=== PATIENT | female | born 1955 | race Caucasian/White ===

== ENCOUNTER 2020-12-26 08:52 | Outpatient (REF) | payer OTHER, SELFPAY ==
[2020-12-26 10:13] LABS: Blood Urea Nitrogen 20 mg/dL (9-16); Estimated Glomerular Filt Rate 34
== END 2020-12-26 08:53 | disposition home or self-care (01) ==
LOC: HO.LAB 08:52
PROVIDERS: PCP Internal Medicine; Visit Provider Internal Medicine Gastroenterology
DX: I73.9 Peripheral vascular disease, unspecified (principal)
CPT/HCPCS: 36415; 82565; 84520

== ENCOUNTER 2021-06-26 06:16 | Emergency (ER) | payer OTHER, SELFPAY ==
[2021-06-26] VITALS (8 sets, daily range): BP systolic 116–156; BP diastolic 68–81; PULSE 73–84; RESP 15–18; TEMP 36.8; O2SAT 95–97; BMI 21.4
--- NOTE | ~2021-06-26 | CT_ITS ---
EXAMINATION: CT HEAD WITHOUT CONTRAST CLINICAL INFORMATION: Following: COMPARISON: 10/24/2019 TECHNIQUE: Contiguous axial imaging was performed from the skull base to vertex without intravenous administration of contrast. This CT examination was performed using dose optimization techniques as appropriate, variously including the following: *Automated exposure control *Adjustment of mA and/or kV according to patient size (this includes techniques or standardized protocols for targeted exams where dose is matched to indication/reason for exam; i.e. extremities or head) *Use of iterative reconstruction technique DLP: 620 mGy-cm FINDINGS: Previously seen acute left subdural hematoma has resolved. There is no evidence of acute intracranial hemorrhage or territorial infarction. A small focus of high density lobe and the anterior margin of the left posterior frontal gyrus in image 41/58 is felt to be artifactual on thin section images with motion and beam hardening. No abnormal mass effect or midline shift is seen. Harris to white matter differentiation is well preserved. No extra-axial fluid collections are identified. The ventricles are normal in size. There is no abnormal attenuation within the brain parenchyma. The osseous structures and soft tissues are normal. The mastoid air cells and visualized portions of the paranasal sinuses are well aerated. CT/CT head/brain wo con IMPRESSION: No acute intracranial pathology.
--- NOTE | ~2021-06-26 | CT_ITS ---
EXAMINATION: CT LEFT KNEE WITHOUT CONTRAST CLINICAL INFORMATION: Question lateral tibial plateau fracture with joint effusion. COMPARISON: None TECHNIQUE: 2 mm thin axial and reformatted 2 mm thin sagittal and coronal images of the left knee were obtained. DLP: 190 mGy-cm. FINDINGS: There is a depressed comminuted fracture lateral tibial plateau with mild separation by 4 mm of depressed fragments. The fracture line extends from the lateral tibial plateau to the lateral proximal tibial cortex. A second vertical fracture line is noted more medially. There is horizontal increased bony density, likely contusion or additional fracture line. There is mild lateral knee soft tissue contusion/edema. CT/CT knee LT wo con IMPRESSION: Comminuted depressed lateral tibial plateau fracture with mild separation of the fracture fragments measuring approximately 4 mm wide. Moderate suprapatellar joint effusion and moderate lateral knee soft tissue swelling.
--- NOTE | ~2021-06-26 | XR_ITS ---
EXAMINATION: LEFT KNEE AND LEFT ANKLE X-RAY CLINICAL INFORMATION: Pain post fall COMPARISON: None TECHNIQUE: 4 views of the left knee and 3 views of the left ankle FINDINGS: Left knee: There is cortical step off and increased sclerosis in the lateral tibial plateau questionable for a lateral tibial plateau fracture. No other fracture is seen. The bones are osteopenic. There is a joint effusion. There are surgical clips projecting over the posterior medial knee. Left ankle: The bones are osteopenic. Bone alignment is normal. No fracture or dislocation is seen. The ankle mortise is normal. Soft tissues are XR/XR ankle LT min 3V IMPRESSION: Left knee: Question lateral tibial plateau fracture. Joint effusion. Osteopenia. Left ankle: Osteopenia. No fracture or dislocation.
--- NOTE | ~2021-06-26 | XR_ITS ---
EXAMINATION: LEFT KNEE AND LEFT ANKLE X-RAY CLINICAL INFORMATION: Pain post fall COMPARISON: None TECHNIQUE: 4 views of the left knee and 3 views of the left ankle FINDINGS: Left knee: There is cortical step off and increased sclerosis in the lateral tibial plateau questionable for a lateral tibial plateau fracture. No other fracture is seen. The bones are osteopenic. There is a joint effusion. There are surgical clips projecting over the posterior medial knee. Left ankle: The bones are osteopenic. Bone alignment is normal. No fracture or dislocation is seen. The ankle mortise is normal. Soft tissues are XR/XR knee LT 4V IMPRESSION: Left knee: Question lateral tibial plateau fracture. Joint effusion. Osteopenia. Left ankle: Osteopenia. No fracture or dislocation.
--- NOTE | 2021-06-26 06:36 | ED.FALL ---
HPI - Fall General Chief Complaint: Extremity Injury, Lower Stated Complaint: L KNEE PAIN S/P FALL Time Seen by Provider: 06/26/21 06:34 Source: patient and EMS Mode of arrival: EMS Limitations: no limitations History of Present Illness MD complaint: fall Onset (ago): hour(s) (in last hour or so) Fall from: standing Fall witnessed: no Place fall occurred: home Loss of consciousness: none Prolonged down time: no Symptoms prior to fall: none Context: other (lost balance) Location of injury: head Location of injury - extremities: left: knee and ankle Severity: severe Quality: dull Associated symptoms (after fall): unable to walk Related Data Home Medications Medication Instructions Recorded Confirmed amlodipine 10 mg tablet 1 tab PO DAILY 06/26/21 06/26/21 cholecalciferol (vitamin D3) 50 50 mcg PO DAILY 06/26/21 06/26/21 mcg (2,000 unit) tablet (Vitamin D3) levothyroxine 50 mcg tablet 1 tab PO DAILY 06/26/21 06/26/21 omeprazole 20 mg capsule,delayed 1 cap PO DAILY 06/26/21 06/26/21 release tramadol 50 mg tablet 1 tab PO QAM PRN 06/26/21 06/26/21 warfarin 5 mg tablet 2.5 mg PO MOTUWETHFRSA 06/26/21 06/26/21 warfarin 5 mg tablet 5 mg PO WILSON 06/26/21 06/26/21 zolpidem 10 mg tablet 1 tab PO BEDTIME PRN 06/26/21 06/26/21 Allergies Allergy/AdvReac Type Severity Reaction Status Date / Time penicillin V Allergy Unknown Unknown Verified 06/26/21 06:44 Penicillins Allergy Unknown UNKNOWN Verified 06/26/21 06:44 lisinopril [LISINOPRIL] AdvReac Intermediate hyperkalemia Verified 06/26/21 06:44 (on multiple re-starts) see 02/09/19 admission From Thorazine Allergy Severe HIVES Uncoded 06/26/21 06:44 Review of Systems Review of Systems: Constitutional : No Fever, No Chills ENT/Mouth : No Ear Pain, No Hoarseness, No sore throat Eyes: No Eye Pain, No Swelling, No Redness, No Foreign Body Cardiovascular : No Chest Pain, No SOB Respiratory : No Cough, No Dyspnea Gastrointestinal : No Nausea, No Vomiting, No Diarrhea, No abdominal Pain Genitourinary : No Dysuria, No Hematuria Musculoskeletal : positive joint pain, No Myalgias, No Joint Swelling Skin : No Skin lacerations, No rash Neuro : No Weakness, No Numbness, No Loss of Consciousness, No Dizziness, No Headache Psych : No Anxiety/Panic, No Depression Heme/Lymph: no easy bruising, no Lymphadenopathy Endocrine : No Polyuria, No Polydipsia All other systems reviewed and are negative [facility] Past Medical History Medical History (Updated 06/26/21 @ 13:29 by Shama Green DO) Abdominal aortic aneurysm HTN (hypertension) PAD (peripheral artery disease) Surgical History (Updated 06/26/21 @ 06:41 by Shama Green DO) S/P femoral-femoral bypass surgery Social History Social History (Updated 06/26/21 @ 06:42 by Shama Green DO) Patient Tobacco Use Status: Former Tobacco user Use of substances other than those prescribed or required for medical reasons: No Advance Directives: No Advance Directives Information Provided: No Physical Exam Vital Signs: Vital Signs: Last Vital Signs Temp 98.3 F 06/26/21 07:37 Pulse 77 06/26/21 14:43 Resp 16 06/26/21 13:08 BP 151/68 H 06/26/21 14:43 Pulse Ox 95 06/26/21 14:43 Body Mass Index 21.4 Appearance: Alert. Oriented X3. No acute distress. Eyes: Pupils equal, round and reactive to light. ENT: Pharynx normal. Neck: Normal inspection. Neck supple. CVS: Normal heart rate and rhythm. Pulses normal. Respiratory: No respiratory distress. Breath sounds normal. Abdomen: Soft and nontender. Skin: Skin warm and dry. Normal skin color. Normal skin turgor. Extremities: No lower extremity edema. L knee ttp with small to moderate effusion, L ankle ttp, no hip pain - faint palpable pulses noted feet are warm to the touch Neuro: Oriented X 3. No motor deficit. No sensory deficit. Course Course Course Narrative: CT scan to evaluate tib plat fx orthopedics aware given her amount of pain though her foot has been warm to the touch sensation intact calf soft and compressible - compartment syndrome not present at this time 129pm repeat IV dilaudid for pain discussion with patient and the gentleman who helps care for her - needs STR, orthopedics recommends outpatient follow up and surgery in 1 week - Eugene MS Patient placed in physician observation at 243pm . The indication for observation is that the patient needs more time for STR placement. At this time the patient is well developed well nourished, lungs clear, CV RRR, abd nontender, neuro is intact. distal NV intact compartments are soft and compressible doubt compartment syndrome signed out pending placement Procedures Orthopedic Splinting/Casting Injury #1: Side: left Lower Extremity Injury Location: knee Lower Extremity Immobilizer: knee immobilizer MDM - Fall MDM Narrative Medical decision making narrative: 66 yo female with PAD, abdominal aortic aneurysm, HTN on coumadin here after she fell due to losing her balance, she does have a history of falls in the past she did bump her head but no LOC - will need head CT given coumadin. Her main complaint is L knee and ankle pain - she is distal NV intact. Xrays, labs, and PO morphine for pain ordered, dispo per results and findings. Lab Data Result diagrams: 06/26/21 09:19 06/26/21 07:16 Labs: Lab Results 06/26/21 06/26/21 06/26/21 Range/Units 07:15 07:16 09:10 WBC (4.8-10.8) X10*3/uL RBC (4.20-5.50) X10*6/uL Hgb (12.0-16.0) g/dl Hct (37-47) % MCV (80-98) fL MCH (27.0-33.0) pg MCHC (31.0-35.0) g/dl RDW (11.0-16.0) % Plt Count (160-400) X10*3/uL MPV (9.4-12.3) fL Immature Gran % (Auto) (0.0-0.4) % Neut % (Auto) (45-73) % Lymph % (Auto) (20-40) % [place] % (Auto) (2-11) % Eos % (Auto) (0-4) % Baso % (Auto) (0-2) % Lymph # (Auto) (1.2-4.9) X10*3/uL [place] # (Auto) (0.1-1.2) X10*3/uL Eos # (Auto) (0.0-0.4) X10*3/uL Baso # (Auto) (0.0-0.2) X10*3/uL Abs Immat Gran (auto) (0.00-0.03) X10*3/uL Absolute Neuts (auto) (2.0-8.3) X10*3/uL Absolute Nucleated RBC (0.0-0.012) X10*3/uL Nucleated RBC % (auto) (0.0-0.2) /100WBC PT 31.5 H (9.9-13.0) SEC INR 2.7 H (0.9-1.1) Sodium 139 (135-145) mmol/L Potassium 4.7 (3.3-5.1) mmol/L Chloride 103 (96-108) mmol/L Carbon Dioxide 21 L (22-29) mmol/L Anion Gap 20 (12-20) BUN 13 (9-16) mg/dL Creatinine 1.25 (0.5-1.4) mg/dL Estim Creat Clear Calc 27.6 Estimated GFR 43 Random Glucose 103 (60-115) mg/dL Calcium 9.5 (8.4-10.2) mg/dL COVID-19 ([facility]) Negative (Negative) COVID-19 Clin Com See Note 06/26/21 Range/Units 09:19 WBC 15.1 H (4.8-10.8) X10*3/uL RBC 4.09 L (4.20-5.50) X10*6/uL Hgb 12.6 (12.0-16.0) g/dl Hct 37.3 (37-47) % MCV 91.2 (80-98) fL MCH 30.8 (27.0-33.0) pg MCHC 33.8 (31.0-35.0) g/dl RDW 16.3 H (11.0-16.0) % Plt Count 360 (160-400) X10*3/uL MPV 11.3 (9.4-12.3) fL Immature Gran % (Auto) 0.4 (0.0-0.4) % Neut % (Auto) 82.7 H (45-73) % Lymph % (Auto) 11.1 L (20-40) % [place] % (Auto) 5.0 (2-11) % Eos % (Auto) 0.3 (0-4) % Baso % (Auto) 0.5 (0-2) % Lymph # (Auto) 1.7 (1.2-4.9) X10*3/uL [place] # (Auto) 0.8 (0.1-1.2) X10*3/uL Eos # (Auto) 0.0 (0.0-0.4) X10*3/uL Baso # (Auto) 0.1 (0.0-0.2) X10*3/uL Abs Immat Gran (auto) 0.06 H (0.00-0.03) X10*3/uL Absolute Neuts (auto) 12.5 H (2.0-8.3) X10*3/uL Absolute Nucleated RBC 0.000 (0.0-0.012) X10*3/uL Nucleated RBC % (auto) 0.0 (0.0-0.2) /100WBC PT (9.9-13.0) SEC INR (0.9-1.1) Sodium (135-145) mmol/L Potassium (3.3-5.1) mmol/L Chloride (96-108) mmol/L Carbon Dioxide (22-29) mmol/L Anion Gap (12-20) BUN (9-16) mg/dL Creatinine (0.5-1.4) mg/dL Estim Creat Clear Calc Estimated GFR Random Glucose (60-115) mg/dL Calcium (8.4-10.2) mg/dL COVID-19 ([facility]) (Negative) COVID-19 Clin Com Discharge Plan Discharge Clinical Impression: Fracture of tibial plateau Qualifiers: Encounter type: initial encounter Fracture type: closed Laterality: left Qualified Code(s): S82.142A - Displaced bicondylar fracture of left tibia, initial encounter for closed fracture Prescriptions: No Action tramadol 50 mg tablet 1 tab PO QAM PRN (Reason: Pain) RF: 0 amlodipine 10 mg tablet 1 tab PO DAILY RF: 0 levothyroxine 50 mcg tablet 1 tab PO DAILY RF: 0 warfarin 5 mg tablet 2.5 mg PO MOTUWETHFRSA RF: 0 omeprazole 20 mg capsule,delayed release(DR/EC) 1 cap PO DAILY RF: 0 zolpidem 10 mg tablet 1 tab PO BEDTIME PRN (Reason: insomnia) RF: 0 warfarin 5 mg Tablet 5 mg PO WILSON RF: 0 cholecalciferol (vitamin D3) [Vitamin D3] 50 mcg (2,000 unit) Tablet 50 mcg PO DAILY RF: 0
[2021-06-26] MEDS: Morphine Sulfate Immed Release 15 MG TABLET PO (06:44)
[2021-06-26 07:26] LABS: INTERNATIONAL NORM RATIO 2.7 (0.9-1.1); Prothrombin Time 31.5 SEC (9.9-13.0)
[2021-06-26] MEDS: oxyCODONE HCl Immed Release 5 MG TABLET PO (07:35)
[2021-06-26 07:42] LABS: Anion Gap 20 (12-20); Blood Urea Nitrogen 13 mg/dL (9-16); Calcium 9.5 mg/dL (8.4-10.2); Carbon Dioxide 21 mmol/L (22-29); Chloride 103 mmol/L (96-108); Creatinine Clr Calc Pharmacy 27.6; Estimated Glomerular Filt Rate 43; Glucose Random 103 mg/dL (60-115); Potassium 4.7 mmol/L (3.3-5.1); Sodium 139 mmol/L (135-145)
[2021-06-26] MEDS: Morphine Sulfate 4 MG/ML CARTRIDGE IM (08:00)
[2021-06-26 09:23] LABS: MANUAL DIFF FLAG NO
[2021-06-26 09:24] LABS: Basophils Absolute Auto 0.1 X10*3/uL (0.0-0.2); Basophils Percent Auto 0.5 % (0-2); Eosinophils Percent Auto 0.3 % (0-4); Hematocrit 37.3 % (37-47); Hemoglobin 12.6 g/dl (12.0-16.0); Imm Gran Abs Auto 0.06 X10*3/uL (0.00-0.03); Imm Gran Pct Auto 0.4 % (0.0-0.4); Lymphocytes Absolute Auto 1.7 X10*3/uL (1.2-4.9); Lymphocytes Percent Auto 11.1 % (20-40); Mean Corpuscular HGB Conc 33.8 g/dl (31.0-35.0); Mean Corpuscular Hemoglobin 30.8 pg (27.0-33.0); Mean Corpuscular Volume 91.2 fL (80-98); Mean Platelet Volume 11.3 fL (9.4-12.3); Monocytes Absolute Auto 0.8 X10*3/uL (0.1-1.2); Neutrophils Absolute Auto 12.5 X10*3/uL (2.0-8.3); Neutrophils Percent Auto 82.7 % (45-73); Platelet Count 360 X10*3/uL (160-400); Red Blood Count 4.09 X10*6/uL (4.20-5.50); Red Cell Distribution Width 16.3 % (11.0-16.0); White Blood Count 15.1 X10*3/uL (4.8-10.8)
[2021-06-26 09:42] LABS: COVID-19 Test Negative (Negative); IDNOW Serial# 9DD0AD1C
--- NOTE | 2021-06-26 10:00 | PHA.MEDREC ---
Pharmacy Consult ? Medication Reconciliation Pharmacy has completed the medication reconciliation. Annalise's family member states that she takes 2.5 mg of warfarin every day except for Saturday, on Sundays she takes 5 mg. She gets her INR checked on depending on how well shes doing. The family member also stated that she got her COVID vaccine as well. Shannon Menendez, PharmD [phone]
[2021-06-26] MEDS: Morphine Sulfate 4 MG/ML CARTRIDGE IVPUSH (10:27)
[2021-06-26] MEDS: HYDROmorphone HCl 1 MG/ML SYRINGE IVPUSH (12:00)
[2021-06-26] MEDS: ondansetron HCL 4 MG/2 ML VIAL IVPUSH (14:25)
[2021-06-26] MEDS: LORazepam 1 MG TABLET PO (14:25)
--- NOTE | 2021-06-26 20:53 | MHC.CM.ED ---
CM met with pt twice, as pt was in too much pain to participate in CM interview. Met with patient again after pain medication. Pt eating dinner and much more agreeable. Pt has FX tibial plateau, will have surgery next week and per PT recommendations, needs STR. HCP reviewed, completed and signed. HCP/S.O. Laron Serrano ([phone]). Copies given. Upload[place] into [email or web address] and [facility] [facility] Pt lives with S.O. Pt uses a walker and has no services. Pt is independent and S.O. cooks and shops for her. Pt has [employer] insurance. [facility] given with local STR facilities. Pt agreeable to local referrals in [place], so S.O. can visit. CM to follow for d/c needs.
[2021-06-26] MEDS: Magnesium Hydrox/Alum Hydrox 30 ML ORAL.SUSP PO (21:42)
[2021-06-26] MEDS: Zolpidem Tartrate 5 MG TABLET PO (21:43)
[2021-06-26] MEDS: oxyCODONE HCl Immed Release 5 MG TABLET 10 MG PO (21:43)
[2021-06-27] VITALS: RESP 16
[2021-06-27] MEDS: diazePAM 5 MG TABLET PO (02:32)
[2021-06-27 02:37] VITALS: BP 145/74; PULSE 82; RESP 20
--- NOTE | 2021-06-27 02:38 | PC.NURSE ---
Pt assisted onto bed ramon, unable to void at this time. Pt reporting 10/10 pain/spasming to left leg, medicated with Valium. Plan for Oxy when due. VSS. Lights dim for comfort.
[2021-06-27] MEDS: oxyCODONE HCl Immed Release 5 MG TABLET 10 MG PO ×2 (04:22→13:04)
[2021-06-27 05:22] VITALS: BP 121/67; PULSE 77; RESP 16; TEMP 36.8; O2SAT 95
[2021-06-27] MEDS: Levothyroxine Sodium 50 MCG TABLET PO (06:32)
[2021-06-27] MEDS: Omeprazole 20 MG CAPSULE.DR PO (06:32)
[2021-06-27 06:34] VITALS: BP 164/80; PULSE 79; RESP 16
[2021-06-27 08:54] VITALS: BP 116/58; PULSE 77; RESP 20; O2SAT 94
[2021-06-27 08:57] VITALS: BP 116/58; PULSE 77
[2021-06-27] MEDS: Cholecalciferol (Vitamin D3) 25 MCG TABLET 50 MCG PO (08:57)
[2021-06-27] MEDS: amLODIPine Besylate 10 MG TABLET PO (08:57)
--- NOTE | 2021-06-27 09:00 | PC.NURSE ---
pt alert, respirations even and unlabored ls clear, pt pupils pin point at this time, slightly confused when conversing with her, oxygen level will drop down in the 89% but when asked to take deep breaths in will come back up to 93-94% on room air.
--- NOTE | 2021-06-27 09:13 | MHC.CM.PN ---
PATIENT AGREES TO BED OFFER FROM [facility]. FACILITY AND HCP (IN ROOM) MADE AWARE. CASE MANAGEMENT TO FOLLOW UP WHEN TIME IS ARRANGED.
--- NOTE | 2021-06-27 12:10 | MHC.CM.PN ---
PATIENT HAD [employer] COVID-19 VACCINE ON JANUARY 02. HCP IS ON HIS WAY IN WITH CARD AND A COPY WILL BE MADE AND UPLOADED TO [facility]
--- NOTE | 2021-06-27 14:03 | MHC.CM.ED ---
PATIENT TO TRANSFER TO [facility] FOR 1500 VIA [facility]. PATIENT, HCP (IN ROOM), RN, AND UNIT AWARE OF PLAN.
== END 2021-06-27 15:08 | disposition skilled nursing facility (03) ==
PROVIDERS: Emergency Provider Emergency Medicine; PCP Internal Medicine
DX: S82.142A Displaced bicondylar fracture of left tibia, initial encounter for closed fracture (principal); M25.562 Pain in left knee; G44.309 Post-traumatic headache, unspecified, not intractable; W01.0XXA Fall on same level from slipping, tripping and stumbling without subsequent striking against object, initial encounter; Y93.9 Activity, unspecified; Y92.9 Unspecified place or not applicable; Y99.9 Unspecified external cause status; Z79.899 Other long term (current) drug therapy; Z79.01 Long term (current) use of anticoagulants
CPT/HCPCS: 36415; 70450; 73564; 73610; 73700; 80048; 85025; 85610; 87635; 96372; 96374; 96375; 96376; 97161; 99285; J1170; J2270; J2405

== ENCOUNTER → 2021-06-30 11:20 | Outpatient (BNVA) | payer OTHER, SELFPAY | PROVIDERS: Visit Provider Physician Assistant | DX: S82.142A Displaced bicondylar fracture of left tibia, initial encounter for closed fracture (principal) | CPT/HCPCS: 99202 ==

== ENCOUNTER 2022-06-01 10:48 | Emergency (ER) | payer OTHER, SELFPAY ==
--- NOTE | ~2022-06-01 | XR_ITS ---
EXAMINATION: XR TOES, RIGHT CLINICAL INFORMATION: Great toe injury. COMPARISON: None TECHNIQUE: 3 views of the right toes were obtained. FINDINGS: Bones are diffusely osteopenic. There is approximately 30 degrees of hallux valgus and 15 degrees of metatarsus primus varus deformity. Minimal cortical step-off deformity of the medial aspect of the proximal metaphysis of the great toe proximal phalanx is presumably acute. There are no comparison radiographs of the foot. Query if this corresponds to the region of patient's pain. The distal phalanx is unremarkable. XR/XR toe RT min 2V IMPRESSION: * There appears to be minimal fracture deformity of the medial cortex of the proximal phalanx of the great toe. * There is metatarsus primus varus and hallux valgus deformity.
--- NOTE | ~2022-06-01 | XR_ITS ---
EXAMINATION: XR RIBS, RIGHT CLINICAL INFORMATION: Pain after fall. COMPARISON: CXR from 01/20/2010 TECHNIQUE: Right ribs, 3 views. Also, a PA view of the chest is obtained. FINDINGS: Lungs are well expanded. Minimal linear opacity of scar or discoid atelectasis at the level of the lingula. No pneumothorax or pleural effusion. Cardiac silhouette is normal in size. The hilar contours are normal. There is an unusual focal convexity along what appears to correspond to the lateral wall of the descending thoracic aorta -- a new finding compared to chest radiograph of 01/20/2010. A minimally displaced fracture of the right anterolateral eighth rib is observed on one of the oblique views. Otherwise, ribs are unremarkable. Cholecystectomy clips of the right upper quadrant the abdomen. Multiple metallic tacks from prior mesh placement of the abdominal wall. XR/XR ribs RT min 3V w CXR1V IMPRESSION: * There is an acute, minimally displaced fracture of the right eighth rib. * Incidentally noted is abnormal contour in the mediastinum along what appears to represent the lateral wall of the descending aorta. Since it is uncertain whether this represents a saccular aneurysm or other lesion adjacent to the aorta, recommend chest CT follow-up for better definition of the mediastinal anatomy.
[2022-06-01 11:05] VITALS: BP 123/62; PULSE 76; RESP 17; TEMP 35.9; O2SAT 97; BMI 19.5
--- NOTE | 2022-06-01 11:27 | PC.NURSE ---
pt ambulatory with RW, sts she fell 2 days ago, denies head strike, takes coumadin- alert oriented cc:rib pain/toe pain
[2022-06-01 13:25] VITALS: BP 134/74; PULSE 67; TEMP 37.2; O2SAT 93
--- NOTE | 2022-06-01 13:50 | ED.GENADULT ---
HPI - General Adult General Chief complaint: General Medical Stated complaint: fall/cracked ribs/big toe broken Time Seen by Provider: 06/01/22 13:50 History of Present Illness HPI narrative: Patient complains of right rib pain after a trip and fall in her bathroom which she hit her right ribs against the wall as well as bending her right big toe and having r right big toe pain, there was no syncope dizziness or fainting she simply tripped and fell she had no chest pain no palpitations, she did not hit her head she had no loss of consciousness has no headache no confusion no vision changes no nausea no vomiting and denies any other injury Related Data Home Medications Medication Instructions Recorded Confirmed amlodipine 10 mg tablet 1 tab PO DAILY 06/26/21 06/26/21 cholecalciferol (vitamin D3) 50 50 mcg PO DAILY 06/26/21 06/26/21 mcg (2,000 unit) tablet (Vitamin D3) levothyroxine 50 mcg tablet 1 tab PO DAILY 06/26/21 06/26/21 omeprazole 20 mg capsule,delayed 1 cap PO DAILY 06/26/21 06/26/21 release tramadol 50 mg tablet 1 - 2 tab PO TID PRN Pain 06/26/21 06/28/21 warfarin 5 mg tablet 2.5 mg PO MOTUWETHFRSA 06/26/21 06/26/21 warfarin 5 mg tablet 5 mg PO WILSON 06/26/21 06/26/21 zolpidem 10 mg tablet 1 tab PO BEDTIME PRN insomnia 06/26/21 06/26/21 Previous Rx's Medication Instructions Recorded oxycodone-acetaminophen 5 mg-325 1 tab PO Q8H PRN pain 7 days #21 07/04/21 mg tablet tabs acetaminophen 500 mg tablet 1,000 mg PO QID PRN pain #20 tabs 06/01/22 zolpidem 10 mg tablet 10 mg PO BEDTIME PRN insomnia #7 06/01/22 tabs Allergies Allergy/AdvReac Type Severity Reaction Status Date / Time penicillin V Allergy Unknown Unknown Verified 06/30/21 11:45 Penicillins Allergy Unknown UNKNOWN Verified 06/30/21 11:45 lisinopril [LISINOPRIL] AdvReac Intermediate hyperkalemia Verified 06/30/21 11:45 (on multiple re-starts) see 02/09/19 admission adhesive tape AdvReac Redness of Verified 06/01/22 11:26 Skin gabapentin AdvReac Vomiting Verified 06/01/22 11:25 From Thorazine Allergy Severe HIVES Uncoded 06/26/21 06:44 Review of Systems Review of Systems: Positive for right big toe pain and right rib pain after a trip and fall in the shower Negatives no dizziness no weakness no preceding symptoms no fainting no feeling faint no palpitations no head injury no headache no vision changes no nausea or vomiting no neck pain no numbness weakness or tingling no shortness of breath no abdominal pain no nausea or vomiting no extremity pains or swelling no difficulty ambulating Yes all other systems are reviewed and are negative PMFSH Past Medical History Source: nursing notes reviewed Medical History Abdominal aortic aneurysm HTN (hypertension) PAD (peripheral artery disease) Surgical History S/P femoral-femoral bypass surgery Social History Social History (Updated 06/30/21 @ 11:45 by Oriana Sloan [facility]) Alcohol intake: never Patient Tobacco Use Status: Former Tobacco user Advance Directives: Yes Advance Directives on File: Yes Advance Directives Date on File: 06/27/21 Current occupational status: disabled 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 Physical Exam ED Vital Signs: Vital Signs - 24 hr 06/01/22 11:05 06/01/22 13:25 Temperature 96.7 F L 98.9 F Pulse Rate 76 67 Respiratory Rate 17 Blood Pressure 123/62 134/74 Pulse Oximetry 97 93 Oxygen Delivery Method Room Air Room Air BMI result Body Mass Index 19.5 General appearance is no acute distress Head is normocephalic atraumatic Neck is supple and nontender The chest there was tenderness along the mid and lower right ribs, no other chest wall tenderness, pain easily reproduced with movement The chest was clear to auscultation bilateral with full symmetric equal breath sounds Heart no murmur Abdomen soft nontender Extremities full range of motion x4 without tenderness swelling or deformity The right big toe exam there was ecchymosis over the proximal phalanx, there was tenderness and mild swelling, skin was intact and neurovascular intact distal Neuro no focal deficits Course Course Course Narrative: X-ray of the right foot showed a likely minimal fracture old deformity of the medial cortex of the proximal phalanx of the great toe, this is treated with a postop shoe and fausto tape Right rib x-ray showed a minimally displaced fracture of the right 8th rib Incidentally noted is abnormal contour in the mediastinum along what appears to be be the lateral wall of the descending aorta, could be saccular aneurysm or other lesion adjacent to the aorta An follow-up CT to evaluate the aorto was recommended When I spoke to the patient she said she does have a vascular surgeon and will follow up with him to make sure this is something that is already known This case was discussed with Dr. Pittman who agreed that this incidental CT finding of a possible aortic enlargement could be followed up as an outpatient with vascular and her doctor This was discussed with the patient who agreed she would follow up Discharge Plan Discharge Clinical Impression: Fracture of rib, Fracture of toe Patient Disposition: Home, Self-Care Additional Instructions: X-RAY OF HER RIBS SHOWED A POSSIBLE ENLARGEMENT OF YOUR AORTA, YOU SHOULD CHECK WITH HER VASCULAR SURGEON TO MAKE SURE THIS IS SOMETHING THEY ALREADY KNOW ABOUT. IF IT IS NEW YOU WILL NEED FURTHER CT IMAGING TO FURTHER EVALUATE X-ray did show a broken right rib X-ray did show nondisplaced fracture of your right big toe Follow with primary doctor for follow-up for the rib, follow with orthopedist or your doctor if needed for the broken toe Return any time for chest pain, shortness of breath, fainting or feeling faint, any worse condition or any concerns Prescriptions: New acetaminophen 500 mg tablet 1,000 mg PO QID PRN (Reason: pain) Qty: 20 0RF zolpidem 10 mg tablet 10 mg PO BEDTIME PRN (Reason: insomnia) Qty: 7 0RF No Action tramadol 50 mg tablet 1 - 2 tab PO TID PRN (Reason: Pain) amlodipine 10 mg tablet 1 tab PO DAILY levothyroxine 50 mcg tablet 1 tab PO DAILY warfarin 5 mg tablet 2.5 mg PO MOTUWETHFRSA Rx Instructions: DAILY EXCEPT FOR SATURDAY omeprazole 20 mg capsule,delayed release(DR/EC) 1 cap PO DAILY zolpidem 10 mg tablet 1 tab PO BEDTIME PRN (Reason: insomnia) warfarin 5 mg Tablet 5 mg PO WILSON cholecalciferol (vitamin D3) [Vitamin D3] 50 mcg (2,000 unit) Tablet 50 mcg PO DAILY oxycodone-acetaminophen 5-325 mg tablet 1 tab PO Q8H PRN (Reason: pain) 7 Days Qty: 21 0RF Interventions: ED Discharge Assessment Last Done: 06/01/22 14:40 Discharge Date/Time: 06/01/22 14:41
== END 2022-06-01 14:41 | disposition home or self-care (01) ==
PROVIDERS: Emergency Provider Student in an Organized Health Care Education/Training Program; PCP Internal Medicine
DX: S22.41XA Multiple fractures of ribs, right side, initial encounter for closed fracture (principal); S92.401A Displaced unspecified fracture of right great toe, initial encounter for closed fracture; R07.89 Other chest pain; M79.671 Pain in right foot; W01.10XA Fall on same level from slipping, tripping and stumbling with subsequent striking against unspecified object, initial encounter; Y93.9 Activity, unspecified; Y92.002 Bathroom of unspecified non-institutional (private) residence as the place of occurrence of the external cause; Y99.9 Unspecified external cause status; Z79.899 Other long term (current) drug therapy; Z87.891 Personal history of nicotine dependence
CPT/HCPCS: 71101; 73660; 99282; 99283

== ENCOUNTER 2023-08-02 12:36 | Observation (INO) | payer OTHER, SELFPAY ==
[2023-08-02] VITALS (7 sets, daily range): BP systolic 82–148; BP diastolic 58–84; PULSE 64–78; RESP 14–18; TEMP 36.5–37.3; O2SAT 93–99; BMI 21.7
--- NOTE | ~2023-08-02 | XR_ITS ---
EXAMINATION: XR CHEST CLINICAL INFORMATION: Cough and weakness, rule out pneumonia COMPARISON: 01/20/2010 TECHNIQUE: 2 views of the chest were obtained. FINDINGS: Heart and mediastinum within normal limits. There is a several centimeter nodular density which silhouettes the descending aortic shadow. Multiple rounded nodules identified in the bilateral lung canales. Mild left base atelectasis. No vascular congestion or effusions. Surgical hardware left shoulder. Herniorrhaphy material. Demineralization and mild scoliosis. XR/XR chest 2V IMPRESSION: Findings suspicious for left para-aortic mass and pulmonary lesions. CT recommended.
--- NOTE | ~2023-08-02 | CT_ITS ---
EXAMINATION: CT CHEST, ABDOMEN, AND PELVIS WITH CONTRAST CLINICAL INFORMATION: Low calcium evaluate for malignancy COMPARISON: None TECHNIQUE: Multidetector volumetric CT imaging of the chest, abdomen, and pelvis was obtained after the administration of 85 mL of Omnipaque 350 intravenous contrast without immediate adverse reactions. Axial MIP volume rendering provided. Sagittal and coronal reformatted images were obtained. This CT examination was performed using dose optimization techniques as appropriate, variously including the following: *Automated exposure control *Adjustment of mA and/or kV according to patient size (this includes techniques or standardized protocols for targeted exams where dose is matched to indication/reason for exam; i.e. extremities or head) *Use of iterative reconstruction technique DLP: 146 mGy-cm FINDINGS: LUNGS: The lungs are clear with no evidence of inflammation or nodules. MEDIASTINUM: The mediastinum appears unremarkable. CORONARY ARTERY CALCIFICATION: Not seen There is saccular aneurysm in the descending aorta without dissection. The entire aorta including aneurysm measured 3.9 cm and aneurysmal dilatation measured 2.5 x 2.0 cm, responsible for questionable mass on chest radiograph seen today earlier. PLEURA: There is no pleural effusion. No pleural mass or thickening. There is very dense breast tissue is with punctate calcifications on the right, correlate with mammography. AXILLA: No lymphadenopathy by size criteria. LIVER, GALLBLADDER, AND BILIARY TREE: The liver appears unremarkable in size, shape, and attenuation. There is small focal lesion in the right lobe of the liver subcapsular most likely hemangioma. Correlate with ultrasound. The lesion measured 1.3 x 0.9 cm. There are no other hepatic lesion or biliary ductal dilatation is appreciated. Gallbladder is surgically absent. CBD is dilated, measured 1.4 cm without evidence of choledocholithiasis. PANCREAS: Unremarkable SPLEEN: Unremarkable ADRENAL GLANDS: Unremarkable KIDNEYS AND URETERS: The kidneys appear unremarkable in size, shape, and attenuation. No hydronephrosis, hydroureter, or calculi seen. BLADDER: Unremarkable GASTROINTESTINAL TRACT: The small and large bowel appear unremarkable. There is constipation. ABDOMINAL WALL: There is mesh in the anterior abdominal wall. LYMPH NODES: No evidence of adenopathy by size criteria. VASCULAR: There are atherosclerotic changes in abdominal aorta without aneurysmal dilatation but with distal occlusion and there are aortobifemoral stents graft seen bilaterally. PELVIC VISCERA: Evaluation of pelvic viscera limited due to shadowing artifact from left hip prosthesis. OSSEOUS STRUCTURES: There is status post left hip arthroplasty. There is levoscoliosis of lumbar spine. There is kyphotic deformity of thoracic spine. CT/CT abdomen pelvis w IV con IMPRESSION: 1. No evidence of malignancy. 2. 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 3. Constipation. 4. Status post cholecystectomy with dilated CBD. 5. Small lesion in the right lobe of the liver most likely hemangioma, correlate with ultrasound.
--- NOTE | 2023-08-02 12:59 | PC.NURSE ---
a&ox3, vss aside from soft BP at this time. BP has improved since EMS transport. pt biba from home d/t increased weakness/dizziness/poor PO intake. pt denies pain at this time. pt states that she feels like she is getting the flu. c/o nausea/fever/chills recently. pt afebrile at this time. 20g IV placed in left AC by EMS district captain. access patent at this time. NS from EMS hung and running at this time. pt resting in no apparent distress in the stretcher at this time. respirations even and unlabored.
--- NOTE | 2023-08-02 13:01 | ED_ITS ---
HPI - Weakness General Chief complaint: Weakness Stated complaint: WEAKNESS NOT FEELING WELL Time Seen by Provider: 08/02/23 13:01 Source: patient Mode of arrival: EMS Limitations: no limitations History of Present Illness HPI Narrative: 68-year-old female with a history of abdominal aortic aneurysm, hypertension, peripheral artery disease on warfarin who presents emergency department for evaluation weakness, dizziness, poor oral intake times 3-4 days. The patient states that she has the flu and she has been sick for 3-4 days. She states she has been feeling very weak. She has had no appetite. She had a runny nose, sneezing and diarrhea x1 loose watery stool today. She states she has not noticed any bloody stools but has noted occasional black stools. She has urinary frequency but no dysuria. She denies myalgias arthralgias. Apparently today she was in her kitchen trying to cook food when she felt very weak and had to sit on her walker. Her boyfriend was concerned about her weakness and called an ambulance and she was transported to the emergency department for evaluation. Patient states she was told recently that her sugar was high when she saw her primary care doctor Related Data Home Medications Medication Instructions Recorded Confirmed amlodipine 10 mg tablet 1 tab PO DAILY 06/26/21 06/26/21 cholecalciferol (vitamin D3) 50 50 mcg PO DAILY 06/26/21 06/26/21 mcg (2,000 unit) tablet (Vitamin D3) levothyroxine 50 mcg tablet 1 tab PO DAILY 06/26/21 06/26/21 omeprazole 20 mg capsule,delayed 1 cap PO DAILY 06/26/21 06/26/21 release tramadol 50 mg tablet 1 - 2 tab PO TID PRN Pain 06/26/21 06/28/21 warfarin 5 mg tablet 2.5 mg PO MOTUWETHFRSA 06/26/21 06/26/21 warfarin 5 mg tablet 5 mg PO WILSON 06/26/21 06/26/21 zolpidem 10 mg tablet 1 tab PO BEDTIME PRN insomnia 06/26/21 06/26/21 Previous Rx's Medication Instructions Recorded oxycodone-acetaminophen 5 mg-325 1 tab PO Q8H PRN pain 7 days #21 07/04/21 mg tablet tabs acetaminophen 500 mg tablet 1,000 mg (2 x 500 mg) PO QID PRN 06/01/22 pain #20 tabs zolpidem 10 mg tablet 10 mg PO BEDTIME PRN insomnia #7 06/01/22 tabs Allergies Allergy/AdvReac Type Severity Reaction Status Date / Time penicillin V Allergy Unknown Unknown Verified 08/02/23 12:53 Penicillins Allergy Unknown UNKNOWN Verified 08/02/23 12:53 lisinopril [LISINOPRIL] AdvReac Intermediate hyperkalemia Verified 08/02/23 12:53 (on multiple re-starts) see 02/09/19 admission adhesive tape AdvReac Redness of Verified 08/02/23 12:53 Skin gabapentin AdvReac Vomiting Verified 08/02/23 12:53 From Thorazine Allergy Severe HIVES Uncoded 08/02/23 12:53 Review of Systems 2 Review of Systems: Yes all other systems are reviewed and are negative [facility] Past Medical History [facility] Narrative: Social history: She lives at home with her boyfriend. She states she stop smoking cigarettes when your prior but has greater than 40 pack-year history of smoking. She denies alcohol use. She denies drug use. 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 Exam: General: Awake, alert in no distress Head: Normocephalic, atraumatic EENT: PERRL, Lids normal, sclera normal, conjunctiva normal, nose normal , ears normal, throat without erythema or exudates, mouth edentulous Neck: Supple, no adenopathy, no trachea midline or C-spine tenderness Lung: breath sounds symmetric, no wheezing, rales or rhonchi Chest: symmetric movement, nontender Heart: regular rate and rhythm, normal S1, S2 no murmurs or rubs Abdomen: soft, mild epigastric tenderness, mild to moderate left-sided tenderness, nondistended, normal bowel sounds Back: no vertebral tenderness, no CVAT Extremities: no deformities, moves all extremities symmetrically Neuro: Awake, alert, oriented, normal speech, cranial nerves intact, moves all extremities symmetrically Psych: Pleasant, cooperative Medications Administered Discontinued Medications Generic Name Dose Route Start Last Admin Trade Name Freq PRN Reason Stop Dose Admin Sodium Chloride 1,000 mls @ 999 mls/hr 08/02/23 13:14 08/02/23 13:36 Ns IV 08/02/23 14:14 999 mls/hr .Q1H1M STA Administration Medical Decision Making Medical Decision Making [facility] Narrative: 68-year-old female with history of abdominal aortic aneurysm, peripheral artery disease, hypertension, cholecystectomy, fem-pop bypass who presents emergency department for evaluation of 3-4 days of weakness with associated rhinorrhea, sore throat, 1 watery stool today, intermittent black stools and urinary frequency. Patient reported decreased oral intake since she has lost her appetite. Vital signs did reveal slightly low blood pressure otherwise were unremarkable. Following evaluation was ordered: CBC, CMP, CK, lipase, troponin, urinalysis, chest x-ray x2, COVID-19, influenza RSV. I ordered normal saline IV x1 L. 15:42 Patient's laboratory evaluation is consistent with chronic anemia with an H&H of 11 and 34.9. Patient also had a very low calcium of 7.4 with a low albumin of 2.9. Patient's corrected albumin is still low at 8.3. Patient's COVID-19 test was positive. Chest x-ray is also concerning for left periaortic mass with bilateral nodules. This is concerning for possible malignancy. The patient's low calcium the be secondary to malnutrition however PTH producing tumor also he has be considered. I did order CT scan of the chest with IV contrast, CT scan of the abdomen pelvis with IV contrast as well to evaluate for possible malignancy. Given her weakness and the fact that she is COVID positive, I do not think that she can be discharged home therefore I will discuss admission with the covering hospitalist 16:01 I did discuss the admission over tiger text with the covering hospitalist, Dr. Lopez and the patient was accepted to the hospital service for further management. Differential Diagnosis Differential Diagnoses: The differential diagnosis associated with the presentation includes Differential diagnosis includes was not limited to acute viral syndrome, COVID- 19, RSV, influenza, pneumonia, anemia, urinary tract infection, electrolyte abnormality Admission/Observation Consideration of admission/observation: Escalation of care including admission/observation considered Consult Healthcare Provider Management of the patient was discussed with: Hospitalist Lab Data MDM Lab Attestation statement: I reviewed the patient's lab results. My independent interpretation patient's laboratory evaluation as follows chronic anemia with an H&H of 11 and 34.9. Low albumin 2.9. Low total protein 5.5. Low calcium 7.4. The COVID-19 positive. Urinalysis positive for blood but microscopic was negative. 08/02/23 13:41 08/02/23 13:41 Labs: Lab Results 08/02/23 08/02/23 Range/Units 13:40 13:41 WBC 5.7 (4.8-10.8) X10*3/uL RBC 3.92 L (4.20-5.50) X10*6/uL Hgb 11.0 L (12.0-16.0) g/dl Hct 34.9 L (37.0-47.0) % MCV 89.0 (80.0-98.0) fL MCH 28.1 (27.0-33.0) pg MCHC 31.5 (31.0-35.0) g/dl RDW 15.6 (11.0-16.0) % Plt Count 290 (160-400) X10*3/uL MPV 11.8 (9.4-12.3) fL Immature Gran % (Auto) 0.5 H (0.0-0.4) % Neut % (Auto) 65.5 (45-73) % Lymph % (Auto) 23.9 (20-40) % [place] % (Auto) 8.9 (2-11) % Eos % (Auto) 0.2 (0-4) % Baso % (Auto) 1.0 (0-2) % Lymph # (Auto) 1.4 (1.2-4.9) X10*3/uL [place] # (Auto) 0.5 (0.1-1.2) X10*3/uL Eos # (Auto) 0.0 (0.0-0.4) X10*3/uL Baso # (Auto) 0.1 (0.0-0.2) X10*3/uL Abs Immat Gran (auto) 0.03 (0.00-0.03) X10*3/uL Absolute Neuts (auto) 3.8 (2.0-8.3) x10*3/uL Absolute Nucleated RBC 0.000 (0.0-0.012) X10*3/uL Nucleated RBC % (auto) 0.0 (0.0-0.2) /100WBC Sodium 138 (135-145) mmol/L Potassium 3.7 D (3.3-5.1) mmol/L Chloride 108 (96-108) mmol/L Carbon Dioxide 23 (22-29) mmol/L Anion Gap 11 L (12-20) BUN 14 (9-16) mg/dL Creatinine 1.17 (0.5-1.4) mg/dL Estim Creat Clear Calc 35.6 Estimated GFR 46 Random Glucose 89 (60-115) mg/dL Calcium 7.4 L D (8.4-10.2) mg/dL Phosphorus 3.9 (2.7-4.5) mg/dL Magnesium 1.7 (1.6-2.6) mg/dL Total Bilirubin 0.1 (0.0-1.0) mg/dL AST 35 H (5-31) U/L ALT 11 (0-31) U/L Alkaline Phosphatase 118 H (39-117) U/L Total Creatine Kinase 34 (26-140) U/L Troponin I High Sens 48.8 H (<3.5-17.0) ng/L Total Protein 5.5 L (6.5-8.0) g/dL Albumin 2.9 L (3.5-5.0) g/dL Lipase 44 (8-78) U/L Influenza Type A (PCR) NEGATIVE (Negative) Influenza Type B (PCR) NEGATIVE (Negative) RSV RNA Qual (PCR) NEGATIVE (Negative) SARS-CoV-2 RNA (RT-PCR) POSITIVE A (Negative) Independent Interpretation I performed an independent interpretation of an: EKG and Plain X-Ray Interpretation: Inverted T-wave in V1 V2 and V3 no PACs, no PVCs My independent interpretation of the patient's 12 EKG done at 13:33 hours is as follows: Normal sinus rhythm with a rate of 69, normal [place] interval, QRS duration QTC interval, compared to an old EKG dated 02/09/2019 the inverted T-waves are new. My independent interpretation the patient's CT scan is as follows: Left para- aortic mass with possible pulmonary nodules bilateral Radiology Impression Discussion of test interpretation with radiology: I have reviewed the radiologist's reading. Radiologist Impression: XR chest 2V IMPRESSION: Findings suspicious for left para-aortic mass and pulmonary lesions. CT recommended. Dictated By: Shanika Ponce MD Independent Historian Clinical information obtained from an independent historian. History obtained from or confirmed by: Other (Boyfriend, Liban) Chronic Conditions Patient?s care impacted by: Hypertension and Other (Hyperlipidemia) Discharge Plan Discharge Clinical Impression: Weakness, COVID-19 virus infection, Hypocalcemia Patient Disposition: Admitted As Inpatient
--- NOTE | 2023-08-02 13:15 | ECG_ITS ---
Test Reason : CP Blood Pressure : / mmHG Vent. Rate : 069 BPM Atrial Rate : 069 BPM P-R Int : 136 ms QRS Dur : 070 ms QT Int : 430 ms P-R-T Axes : 057 017 051 degrees QTc Int : 460 ms Normal sinus rhythm Low voltage QRS Nonspecific ST abnormality Abnormal ECG When compared with ECG of 24-OCT-2019 14:39, No significant change was found Referred By: Edwin Miller Electronically Signed By:HORTENCIA CARDENAS MD
[2023-08-02] MEDS: 0.9 % Sodium Chloride 1,000 ML 999 ML IV (13:36)
--- NOTE | 2023-08-02 13:44 | PC.NURSE ---
ekg performed by tech. labs drawn and sent to lab. IV fluids administered per provider order. resting comfortably in no apparent distress. respirations remain even and unlabored.
[2023-08-02 13:46] LABS: MANUAL DIFF FLAG NO
--- NOTE | 2023-08-02 13:48 | PC.NURSE ---
pt to xray at this time.
[2023-08-02 13:51] LABS: Basophils Absolute Auto 0.1 X10*3/uL (0.0-0.2); Eosinophils Percent Auto 0.2 % (0-4); Hematocrit 34.9 % (37.0-47.0); Imm Gran Abs Auto 0.03 X10*3/uL (0.00-0.03); Imm Gran Pct Auto 0.5 % (0.0-0.4); Lymphocytes Absolute Auto 1.4 X10*3/uL (1.2-4.9); Lymphocytes Percent Auto 23.9 % (20-40); Mean Corpuscular HGB Conc 31.5 g/dl (31.0-35.0); Mean Corpuscular Hemoglobin 28.1 pg (27.0-33.0); Mean Platelet Volume 11.8 fL (9.4-12.3); Monocytes Absolute Auto 0.5 X10*3/uL (0.1-1.2); Monocytes Percent Auto 8.9 % (2-11); Neutrophils Absolute Auto 3.8 x10*3/uL (2.0-8.3); Neutrophils Percent Auto 65.5 % (45-73); Platelet Count 290 X10*3/uL (160-400); Red Blood Count 3.92 X10*6/uL (4.20-5.50); Red Cell Distribution Width 15.6 % (11.0-16.0); White Blood Count 5.7 X10*3/uL (4.8-10.8)
[2023-08-02 14:07] LABS: Alanine Aminotransferase 11 U/L (0-31); Albumin Level 2.9 g/dL (3.5-5.0); Alkaline Phosphatase 118 U/L (39-117); Anion Gap 11 (12-20); Aspartate Amino Transferase 35 U/L (5-31); Bilirubin Total 0.1 mg/dL (0.0-1.0); Blood Urea Nitrogen 14 mg/dL (9-16); Calcium 7.4 mg/dL (8.4-10.2); Carbon Dioxide 23 mmol/L (22-29); Chloride 108 mmol/L (96-108); Creatinine Clr Calc Pharmacy 35.6; Estimated Glomerular Filt Rate 46; Glucose Random 89 mg/dL (60-115); Lipase 44 U/L (8-78); Potassium 3.7 mmol/L (3.3-5.1); Sodium 138 mmol/L (135-145); Total Protein 5.5 g/dL (6.5-8.0)
[2023-08-02 14:13] LABS: Troponin-I High Sensitivity 48.8 ng/L (<3.5-17.0)
[2023-08-02 15:14] LABS: Influenza A PCR NEGATIVE (Negative); Influenza B PCR NEGATIVE (Negative); Resp Syncy Virus RNA Qual PCR NEGATIVE (Negative); SARS COV2 PCR INHOUSE POSITIVE (Negative)
[2023-08-02 15:49] LABS: Magnesium 1.7 mg/dL (1.6-2.6); Phosphorus 3.9 mg/dL (2.7-4.5)
[2023-08-02] MEDS: iohexoL 350 MG/ML 100 ML INFUS..BTL 85 ML IV (16:07)
[2023-08-02 16:10] LABS: TSH reflex Free T4 0.88 uIU/mL (0.32-4.0)
--- NOTE | 2023-08-02 16:47 | PHA.MEDREC ---
Pharmacy Consult ? Medication Reconciliation Pharmacy has completed the medication reconciliation. Spoke to patient at bedside, unable to name most medications. Led conversation based on claim history. States she no longer takes trazodone, and I let patient know that buprenorphine patch would have to be brought in if provider continues
--- NOTE | 2023-08-02 17:13 | PM.IMHP ---
History of Present Illness Date of Service: 08/02/23 Chief Complaint: generalized weakness ? 68-year-old female with anxiety/depression, GERD, HTN, HLD, prior TIA, AAA (4 cm as of apr 2023), CAD, & PAD s/p prior aortic to left femoral bypass, left femoral to popliteal bypass, left femoral thrombectomy and left jump graft from the GSV bypass to posterior tibial artery who was brought to the ED from home for evaluation of weakness for 3-4 days along with running nose, sore throat, no fever, no abd pain but had diarrhea today with no blood. Her apetite has bee poor with food and oral intake. Work up has revealed covid-19 without hypoxia. Chest x-ray concerning for left periaortic mass with bilateral nodules. CT of abdomen and Pelvis show no evidence of malignancy see details below. ED provider is conern that patient is too weak to go home. Review of Systems Review of Systems: Gen: no fever Resp: no sob, no cough CV: no chest, no JEAN BAPTISTE, no leg edema GI: No n/v, no abd pain Neuro: No confusion, generalized weakness [facility] Medical History Abdominal aortic aneurysm HTN (hypertension) PAD (peripheral artery disease) Surgical History S/P femoral-femoral bypass surgery Social History (Updated 06/30/21 @ 11:45 by Oriana Sloan, [facility]) Alcohol intake: never Patient Tobacco Use Status: Former Tobacco user Smoked in Last 30 Days: No Use of substances other than those prescribed or required for medical reasons: No Currently Displaying Signs/Symptoms of Drug Intoxication Withdrawal: No Advance Directives: Yes Advance Directives on File: Yes Advance Directives Date on File: 06/27/21 Current occupational status: disabled 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 Meds Allergies Allergy/AdvReac Type Severity Reaction Status Date / Time penicillin V Allergy Unknown Unknown Verified 08/02/23 12:53 Penicillins Allergy Unknown UNKNOWN Verified 08/02/23 12:53 lisinopril [LISINOPRIL] AdvReac Intermediate hyperkalemia Verified 08/02/23 12:53 (on multiple re-starts) see 02/09/19 admission adhesive tape AdvReac Redness of Verified 08/02/23 12:53 Skin gabapentin AdvReac Vomiting Verified 08/02/23 12:53 From Thorazine Allergy Severe HIVES Uncoded 08/02/23 12:53 Home Medications Medication Instructions Recorded Confirmed Last Taken Type cholecalciferol (vitamin D3) 50 50 mcg PO DAILY 06/26/21 08/02/23 08/02/23 History mcg (2,000 unit) tablet (Vitamin D3) levothyroxine 50 mcg tablet 1 tab PO DAILY@0600 06/26/21 08/02/23 08/02/23 History omeprazole 20 mg capsule,delayed 1 cap PO DAILY 06/26/21 08/02/23 08/02/23 History release amlodipine 5 mg tablet 5 mg PO DAILY 08/02/23 08/02/23 08/02/23 History apixaban 5 mg tablet (Eliquis) 5 mg PO BID 08/02/23 08/02/23 08/02/23 History buprenorphine 7.5 mcg/hour weekly 1 patch transdermal FR 08/02/23 08/02/23 Unknown History transdermal patch ezetimibe 10 mg tablet 10 mg PO DAILY 08/02/23 08/02/23 08/02/23 History venlafaxine 37.5 mg 37.5 mg PO DAILY 08/02/23 08/02/23 08/02/23 History capsule,extended release 24 hr Physical Exam Vital Signs and Narrative: Vital Signs: Last Vital Signs Temp 98.8 F 08/02/23 17:05 Pulse 74 08/02/23 17:05 Resp 14 08/02/23 17:05 BP 138/84 08/02/23 17:05 Pulse Ox 96 08/02/23 17:05 O2 Del Method Room Air 08/02/23 17:05 BMI result Body Mass Index 21.7 Const: Other: Constitutional: Alert, in no distress, Mental Status: Oriented to person, place and time. Eyes: Pupils are equal, round and reactive to light. Ear, Nose and Throat: Oropharynx clear, mucous membranes moist. Respiratory: Clear to auscultation. No wheezing, rales or rhonchi. Cardiovascular: S1 S2 regular. No murmurs, rubs or gallops. Gastrointestinal: Abdomen soft, non-tender, non-distended. Normal bowel sounds.? Neurologic: Cranial nerves II-XII grossly intact. No focal neurological deficits. Moves all extremities spontaneously.? Skin: No rashes or lesions.? Musculoskeletal: No cyanosis or clubbing. Psychiatric: Normal mood and affect? Results Labs 08/02/23 13:41 08/02/23 13:41 Labs: Laboratory Results - last 24 hr 08/02/23 08/02/23 13:40 13:41 MCV 89.0 MCH 28.1 MCHC 31.5 RDW 15.6 Plt Count 290 MPV 11.8 Immature Gran % (Auto) 0.5 H Neut % (Auto) 65.5 Lymph % (Auto) 23.9 [place] % (Auto) 8.9 Eos % (Auto) 0.2 Baso % (Auto) 1.0 Lymph # (Auto) 1.4 [place] # (Auto) 0.5 Eos # (Auto) 0.0 Baso # (Auto) 0.1 Abs Immat Gran (auto) 0.03 Absolute Neuts (auto) 3.8 Absolute Nucleated RBC 0.000 Nucleated RBC % (auto) 0.0 Anion Gap 11 L Estim Creat Clear Calc 35.6 Estimated GFR 46 Random Glucose 89 Calcium 7.4 L D Phosphorus 3.9 Magnesium 1.7 Total Bilirubin 0.1 AST 35 H ALT 11 Alkaline Phosphatase 118 H Total Creatine Kinase 34 Total Protein 5.5 L Albumin 2.9 L Lipase 44 25-OH Vitamin D Total 42.0 TSH 0.88 Influenza Type A (PCR) NEGATIVE Influenza Type B (PCR) NEGATIVE RSV RNA Qual (PCR) NEGATIVE SARS-CoV-2 RNA (RT-PCR) POSITIVE A Imaging Radiologist's Impressions: Impressions Chest X-Ray 08/02/23 13:48 IMPRESSION: Findings suspicious for left para-aortic mass and pulmonary lesions. CT recommended. Abdomen/Pelvis CT 08/02/23 16:15 IMPRESSION: 1. No evidence of malignancy. 2. 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 3. Constipation. 4. Status post cholecystectomy with dilated CBD. 5. Small lesion in the right lobe of the liver most likely hemangioma, correlate with ultrasound. Chest CT 08/02/23 16:15 IMPRESSION: 1. No evidence of malignancy. 2. 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 3. Constipation. 4. Status post cholecystectomy with dilated CBD. 5. Small lesion in the right lobe of the liver most likely hemangioma, correlate with ultrasound. Assessment and Plan (1) COVID-19 virus infection: Status: Acute (2) Weakness: Status: Acute Plan 68-year-old female with anxiety/depression, GERD, HTN, HLD, prior TIA, AAA (4 cm as of apr 2023), CAD, & PAD s/p prior aortic to left femoral bypass, left femoral to popliteal bypass, left femoral thrombectomy and left jump graft from the GSV bypass to posterior tibial artery who was brought to the ED from home for evaluation of weakness for 3-4 days along with running nose, sore throat, no fever, no abd pain but had diarrhea today with no blood, troponin is mildly high covid 19, manifested as weakness, sore throat, diarrha. No hypoxia, symptomatic treatment. Hydration mild elevated LFTs likely from covid hypocalemia--not really d/t low albumin Elevated troponin I with no chest pain or sob, likely related to covid, repat troponin Chronic use of anticoagulation--she's confirmed to be on eliquis but indication is not clear ? for TIA , PAD DVT prophylaxis: continue eliquis full code obs if still weak in the mronign will get pt evl Quality Stroke Does the patient have a stroke diagnosis?: No VTE Prior VTE?: No VTE Risk Level:: Medical - moderate - high VTE Device Contraindication: Treatment Not Indicated VTE Drug Contraindication: N/A - Med Ordered
--- NOTE | 2023-08-02 18:43 | PC.NURSE ---
report given. see bladder scan. pt declined straight cath x2. small 100cc clear yellow urine void in purewick. no bladder tenderness or abd pain. aox4. calm, coop. no respiratory distress. afebrile. talks well. COVID-19 precautions continue. isolation room. frequent rounding. PIV in place- c/d/i.
[2023-08-02] MEDS: Dextrose 5 % and 0.45 % NaCl 1,000 ML 100 ML IVCONT (19:07)
--- NOTE | 2023-08-02 19:08 | PC.NURSE ---
pt going up to floor. no distress. wearing mask.
[2023-08-02 19:26] LABS: INTERNATIONAL NORM RATIO 1.2 (0.9-1.1); Prothrombin Time 14.9 SEC (11.1-13.3)
[2023-08-02 19:28] LABS: Partial Thromboplastin Time 35.9 SEC (26.0-36.4)
[2023-08-02 19:43] LABS: Troponin-I High Sensitivity 67.2 ng/L (<3.5-17.0)
--- NOTE | 2023-08-02 20:23 | PC.NURSE ---
Message received from the lab that blood for Ionized calcium was hemolized and that this blood work has to be sent out , they said that the gianluca has left for the day , DR Robles was notified and is okay to do blood work in am
[2023-08-02] MEDS: Zolpidem Tartrate 5 MG TABLET PO (20:28)
[2023-08-02] MEDS: Apixaban 5 MG TABLET PO (20:28)
--- NOTE | 2023-08-03 | ECG_ITS ---
Test Reason : elevated troponin Blood Pressure : / mmHG Vent. Rate : 061 BPM Atrial Rate : 061 BPM P-R Int : 158 ms QRS Dur : 070 ms QT Int : 466 ms P-R-T Axes : 078 027 059 degrees QTc Int : 469 ms Normal sinus rhythm Low voltage QRS Nonspecific ST and T wave abnormality Abnormal ECG When compared with ECG of 02-AUG-2023 13:33, No significant changes seen Referred By: Enrique Clarke Electronically Signed By:HORTENCIA CARDENAS MD
[2023-08-03 04:00] VITALS: BP 158/76; PULSE 67; RESP 20; TEMP 37.1; O2SAT 98
[2023-08-03] MEDS: Omeprazole 20 MG CAPSULE.DR PO (05:42)
[2023-08-03] MEDS: Levothyroxine Sodium 50 MCG TABLET PO (05:43)
[2023-08-03 07:58] VITALS: BP 134/59; PULSE 62; RESP 18; TEMP 36.7; O2SAT 95
--- NOTE | 2023-08-03 10:55 | MHC.CM.PN ---
Pt left AMA prior to this CM doing intake assessment.
--- NOTE | 2023-08-03 14:12 | PM.DS ---
DS: Providers Provider Date of Service: 08/03/23 Date of admission: 08/02/23 17:40 Primary care physician: John Melendez III, MD DS: Diagnosis Discharge Diagnosis (1) COVID-19 virus infection: Status: Acute (2) Weakness: Status: Acute DS: Summary Hospital Course Hospital Course: Chief Complaint: generalized weakness ? 68-year-old female with anxiety/depression, GERD, HTN, HLD, prior TIA, AAA (4 cm as of apr 2023), CAD, & PAD s/p prior aortic to left femoral bypass, left femoral to popliteal bypass, left femoral thrombectomy and left jump graft from the GSV bypass to posterior tibial artery who was brought to the ED from home for evaluation of weakness for 3-4 days along with running nose, sore throat, no fever, no abd pain but had diarrhea today with no blood. Her apetite has bee poor with food and oral intake. Work up has revealed covid-19 without hypoxia. Chest x-ray concerning for left periaortic mass with bilateral nodules. CT of abdomen and Pelvis show no evidence of malignancy see details below. ED provider is conern that patient is too weak to go home. Hospital course: patient was admitted overnight d/t covid with associated weakness, elevaed troponin. The next day before patient can be fully assessed, she opted to leave against medical advice and left before she could be diven any instruction, I had seen her earlier in the morning and discussed with her and that she may be dischared later depending on lab results including troponin that were pending at that time and they left anyway..Troponin I came back unchanged and therefore unlikely acute mi Time Attestation Discharge coordination time: Greater than 30 minutes Quality: Safe Use of Opioids Does Pt have an Active Cancer Diagnosis on the Problem List?: No Quality: Stroke Does the patient have a stroke diagnosis?: No Physical Exam Vital Signs: Vital Signs: Last Vital Signs Temp 98.0 F 08/03/23 07:58 Pulse 62 08/03/23 07:58 Resp 18 08/03/23 07:58 BP 134/59 L 08/03/23 07:58 Pulse Ox 95 08/03/23 07:58 O2 Del Method Room Air 08/03/23 07:58 BMI result Body Mass Index 21.7 DS: Data Data Completed and Pending Labs on day of discharge: Laboratory Results - last 24 hr 08/02/23 08/02/23 08/02/23 13:40 13:41 19:02 Hold Purple Top PT 14.9 H INR 1.2 H APTT 35.9 Hold Blue Top SEE NOTE Ionized Calcium Phosphorus 3.9 Magnesium 1.7 Troponin I High Sens 48.8 H 67.2 H* 25-OH Vitamin D Total 42.0 TSH 0.88 Hold Red Top See Note Influenza Type A (PCR) NEGATIVE Influenza Type B (PCR) NEGATIVE RSV RNA Qual (PCR) NEGATIVE SARS-CoV-2 RNA (RT-PCR) POSITIVE A 08/02/23 08/03/23 Unknown 07:14 Hold Purple Top SEE NOTE PT INR APTT Hold Blue Top Ionized Calcium Cancelled Phosphorus Magnesium Troponin I High Sens 68.0 H* 25-OH Vitamin D Total TSH Hold Red Top Influenza Type A (PCR) Influenza Type B (PCR) RSV RNA Qual (PCR) SARS-CoV-2 RNA (RT-PCR) Discharge Plan Discharge Anticipated Discharge Date/Time: 08/03/23 14:10 Patient Disposition: Left Against Medical Advice Discharge Diagnosis: covid, weakness Referrals: John Melendez III, MD [Primary Care Provider] - 1 Week Discharge Medications: No Action zolpidem 10 mg tablet 10 mg PO BEDTIME PRN (Reason: insomnia) Qty: 7 0RF levothyroxine 50 mcg tablet 1 tab PO DAILY@0600 omeprazole 20 mg capsule,delayed release(DR/EC) 1 cap PO DAILY cholecalciferol (vitamin D3) [Vitamin D3] 50 mcg (2,000 unit) Tablet 50 mcg PO DAILY venlafaxine 37.5 mg capsule,extended release 24hr 37.5 mg PO DAILY amlodipine 5 mg tablet 5 mg PO DAILY ezetimibe 10 mg tablet 10 mg PO DAILY Eliquis 5 mg tablet 5 mg PO BID buprenorphine 7.5 mcg/hour patch weekly 1 patch transdermal FR Discharge Orders: Discharge Order (Routine); Ordered 08/03/23 Ordered By: Enrique Anand Diet: Advance to usual diet Activity on Discharge: As tolerated Care Plan Goals: left ama Health Concerns: left ama Plan of Treatment: left ama Assessment: left ama Discharge Date/Time: 08/03/23 08:57
[2023-08-05 19:49] LABS: Calcium, Ionized 4.8 mg/dL (4.7-5.5)
[2023-08-06 16:29] LABS: Calcium (PTHI) 7.8 mg/dL (8.6-10.4); PTHI 100 pg/mL (16-77)
[2023-08-15 15:29] LABS: Parathyroid Hormone Related Pr 11 pg/mL (11-20)
== END 2023-08-03 08:57 | disposition left against medical advice (07) ==
LOC: HO.ED 15:50 → HO.EDOVER 17:53 → HO.IMC 18:09
PROVIDERS: Student in an Organized Health Care Education/Training Program; Admitting Provider Internal Medicine; Emergency Provider Emergency Medicine Emergency Medical Services; PCP Internal Medicine; Visit Provider Internal Medicine
DX: U07.1 COVID-19 (principal); R53.1 Weakness; R79.89 Other specified abnormal findings of blood chemistry; J30.9 Allergic rhinitis, unspecified; J02.9 Acute pharyngitis, unspecified; I10 Essential (primary) hypertension; I73.9 Peripheral vascular disease, unspecified; I71.40 Abdominal aortic aneurysm, without rupture, unspecified; E83.51 Hypocalcemia; E78.5 Hyperlipidemia, unspecified; K21.9 Gastro-esophageal reflux disease without esophagitis; I25.10 Atherosclerotic heart disease of native coronary artery without angina pectoris; Z79.01 Long term (current) use of anticoagulants; Z79.899 Other long term (current) drug therapy
CPT/HCPCS: 0241U; 36415; 71046; 71260; 74177; 80053; 82306; 82330; 82550; 83519; 83690; 83735; 83970; 84100; 84443; 84484; 85025; 85610; 85730; 93005; 96360; 96361; 99222; 99285; Q9967

== ENCOUNTER → 2023-08-02 17:40 | Outpatient (BNV) | payer OTHER, SELFPAY | PROVIDERS: Admitting Provider Internal Medicine; Emergency Provider Emergency Medicine Emergency Medical Services; PCP Internal Medicine; Visit Provider Internal Medicine | DX: U07.1 COVID-19 (principal); R53.1 Weakness; Z53.21 Procedure and treatment not carried out due to patient leaving prior to being seen by health care provider | CPT/HCPCS: 99223; 99238 ==

== ENCOUNTER 2023-10-15 15:51 | Inpatient (IN) | payer OTHER, SELFPAY ==
[2023-10-15] VITALS (9 sets, daily range): BP systolic 104–145; BP diastolic 54–85; PULSE 54–137; RESP 16–26; TEMP 37.1; O2SAT 93–99; BMI 16.4
--- NOTE | 2023-10-15 | ECG_ITS ---
Test Reason : REPECT Blood Pressure : / mmHG Vent. Rate : 058 BPM Atrial Rate : 058 BPM P-R Int : 122 ms QRS Dur : 070 ms QT Int : 482 ms P-R-T Axes : 119 134 165 degrees QTc Int : 473 ms Suspect limb lead reversal, interpretation assumes no reversal Sinus bradycardia Low voltage QRS Lateral infarct , age undetermined ST & T wave abnormality, consider anterior ischemia Abnormal ECG When compared with ECG of 15-OCT-2023 17:42, Sinus rhythm has replaced Atrial fibrillation Vent. rate has decreased BY 72 BPM QRS axis Shifted right Inverted T waves have replaced nonspecific T wave abnormality in Lateral leads Referred By: Herbie Mclean Electronically Signed By:Steven Jenkins
--- NOTE | ~2023-10-15 | XR_ITS ---
EXAMINATION: XR CHEST CLINICAL INFORMATION: Aspiration. COMPARISON: CT chest 08/02/2023. Chest radiograph 08/02/2023. TECHNIQUE: Frontal view of the chest was obtained. FINDINGS: New multifocal airspace opacities in the left lung that are denser in the left lower lobe with a new small layering left-sided pleural effusion. Clear right lung. No pneumothorax. Volume loss of the left lung with some degree of shifting of the cardiomediastinal silhouette to the left which is new since prior. A previously described saccular aneurysm of the descending thoracic aorta is not well seen in this examination. Partially imaged hardware in the proximal left humerus. No acute osseous findings. XR/XR chest 1V IMPRESSION: New airspace opacities in the left lung with associated volume loss, leftward mediastinal shifting and a small left-sided pleural effusion suspicious for aspiration/pneumonia as well as some degree of atelectasis in view of the volume loss and mediastinal shift. 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 Further evaluation with CT chest with IV contrast could be obtained as clinically warranted.
--- NOTE | ~2023-10-15 | XR_ITS ---
EXAMINATION: XR KNEE, LEFT CLINICAL INFORMATION: valgus angulation, guarding COMPARISON: Left femur February 08, 2019 TECHNIQUE: Two views of the left knee. FINDINGS: There is osteopenia. Orthopedic plate and screw in proximal tibia. Surgical clips over the distal thigh and proximal calf. No acute abnormality. No fracture. No dislocation. No joint effusion. XR/XR knee LT 2V IMPRESSION: 1. No acute abnormality of the knee. 2. Postsurgical changes of proximal tibia. 3. Osteopenia.
--- NOTE | ~2023-10-15 | XR_ITS ---
EXAMINATION: XR PELVIS CLINICAL INFORMATION: Post left hip surgery. COMPARISON: CT abdomen/pelvis 08/02/2023. TECHNIQUE: AP view of the pelvis. FINDINGS: Total left-sided hip arthroplasty. No evidence of hardware fracture or complication. No acute fractures or malalignment. Multiple surgical tacks overlying the lower abdomen, most consistent with prior hernia repair. Right iliac vascular stent seen. Multiple surgical clips overlying the left hip. XR/XR pelvis 1-2V IMPRESSION: 1. Total left-sided hip arthroplasty without evidence of hardware fracture or complication. 2. No acute fractures or subluxation.
--- NOTE | ~2023-10-15 | XR_ITS ---
EXAMINATION: XR HIP, LEFT CLINICAL INFORMATION: Guarding, recent hip surgery COMPARISON: Pelvis radiograph earlier today, CT abdomen pelvis 08/02/2023, left hip and pelvis 08/31/2019 TECHNIQUE: Single view pelvis and 2 additional views of the left hip. FINDINGS: Left total hip prosthesis is present. The prosthesis appears in good position. No evidence of prosthetic loosening. There is some mild acetabular protrusio which appears new when compared with 08/31/2019. The right hip appears normal. A right external iliac stent grafts is present. There has been a mesh hernia repair in the mid abdominal wall along with multiple surgical clips in the left inguinal region. XR/XR hip LT w PEL1V IMPRESSION: Left total hip prosthesis demonstrating new acetabular protrusio left hip since 2018
--- NOTE | ~2023-10-15 | CT_ITS ---
EXAMINATION: CT HEAD WITHOUT CONTRAST CLINICAL INFORMATION: Encephalopathy COMPARISON: Previous head CT most recent June 2021 TECHNIQUE: Contiguous axial imaging was performed from the skull base to vertex without intravenous administration of contrast. This CT examination was performed using dose optimization techniques as appropriate, variously including the following: *Automated exposure control *Adjustment of mA and/or kV according to patient size (this includes techniques or standardized protocols for targeted exams where dose is matched to indication/reason for exam; i.e. extremities or head) *Use of iterative reconstruction technique DLP: 731 mGy-cm FINDINGS: There is no evidence of an extra-axial collection. There is no evidence of intra or extra-axial hemorrhage. The ventricles and extra-axial CSF spaces are slightly prominent suggestive of mild generalized atrophy. There is mild nonspecific periventricular white matter disease. No mass, mass effect or infarct. Atherosclerotic disease. No skull fracture. Left maxillary sinus disease. Visualized sinuses mastoid air cells and middle ears are otherwise clear. CT/CT head/brain wo IV con IMPRESSION: No acute findings. Mild generalized atrophy and nonspecific periventricular white matter disease. Left maxillary sinus disease.
--- NOTE | 2023-10-15 16:53 | ED_ITS ---
HPI - General Adult General Chief complaint: General Medical Stated complaint: week out from L hip surgery, not eating/drinking Time Seen by Provider: 10/15/23 16:53 Source: patient Mode of arrival: EMS Limitations: no limitations History of Present Illness HPI narrative: Patient is status post left THR on 10/03/23 at [facility] post surgery patient has been having decline in her health not eating or drinking for last few days not ambulatory in last 3- 4 days to no fever no chills no abdominal pain sleeping most of the time patient is on multiple sedative medications including Ambien, buprenorphine patch, oxycodone and tramadol Related Data Home Medications Medication Instructions Recorded Confirmed cholecalciferol (vitamin D3) 50 50 mcg PO DAILY 06/26/21 10/15/23 mcg (2,000 unit) tablet (Vitamin D3) levothyroxine 50 mcg tablet 1 tab PO DAILY@0600 06/26/21 10/15/23 omeprazole 20 mg capsule,delayed 1 cap PO DAILY 06/26/21 10/15/23 release amlodipine 5 mg tablet 5 mg PO DAILY 08/02/23 10/15/23 ezetimibe 10 mg tablet 10 mg PO DAILY 08/02/23 10/15/23 venlafaxine 37.5 mg 37.5 mg PO DAILY 08/02/23 10/15/23 capsule,extended release 24 hr apixaban 2.5 mg tablet (Eliquis) 2.5 mg PO BID 10/15/23 10/15/23 buprenorphine 15 mcg/hour weekly 1 patch transdermal FR 10/15/23 10/15/23 transdermal patch docusate sodium 100 mg capsule 100 mg PO BID PRN constipation 10/15/23 10/15/23 magnesium oxide 400 mg (241.3 mg 400 mg PO BID 10/15/23 10/15/23 magnesium) tablet oxycodone 5 mg tablet 5 mg PO Q4H PRN Severe Pain (Scale 10/15/23 10/15/23 Score 7-10) tramadol 50 mg tablet 50 - 100 mg PO Q6H PRN Moderate 10/15/23 10/15/23 Pain (Scale Score 5-6) Previous Rx's Medication Instructions Recorded zolpidem 10 mg tablet 10 mg PO BEDTIME PRN insomnia #7 06/01/22 tabs Allergies Allergy/AdvReac Type Severity Reaction Status Date / Time penicillin V Allergy Unknown Unknown Verified 08/02/23 12:53 Penicillins Allergy Unknown UNKNOWN Verified 08/02/23 12:53 lisinopril [LISINOPRIL] AdvReac Intermediate hyperkalemia Verified 08/02/23 12:53 (on multiple re-starts) see 02/09/19 admission adhesive tape AdvReac Redness of Verified 08/02/23 12:53 Skin gabapentin AdvReac Vomiting Verified 08/02/23 12:53 From Thorazine Allergy Severe HIVES Uncoded 08/02/23 12:53 Review of Systems 2 Review of Systems: Yes all other systems are reviewed and are negative [facility] Past Medical History Medical History History of cocaine abuse Former smoker Fracture of left tibial plateau Abdominal aortic aneurysm HTN (hypertension) PAD (peripheral artery disease) Surgical History S/P total left hip arthroplasty S/P femoral-femoral bypass surgery Social History Social History Unable to assess alcohol history related to: Refusing to respond Alcohol intake: never Patient Tobacco Use Status: Former Tobacco user Smoked in Last 30 Days: Yes Use of substances other than those prescribed or required for medical reasons: Refusing to respond Advance Directives: Yes Advance Directives on File: Yes Advance Directives Date on File: 06/27/21 Nutrition Risks: Difficulty swallowing Current occupational status: disabled 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 Physical Exam ED Vital Signs: Vital Signs - 24 hr 10/15/23 17:07 10/15/23 18:00 10/15/23 19:33 Temperature 98.8 F Pulse Rate 137 H 94 136 H Respiratory Rate 16 20 19 Blood Pressure 119/69 113/85 145/67 H Pulse Oximetry 97 98 94 Oxygen Delivery Method Room Air Oxymask Oxymask Oxygen Flow Rate 6 6 10/15/23 20:43 10/15/23 20:45 10/15/23 20:56 Temperature Pulse Rate 115 H 122 H 104 H Respiratory Rate 26 H 20 20 Blood Pressure 121/77 121/72 116/71 Pulse Oximetry 93 94 95 Oxygen Delivery Method Oxymask Oxymask Oxymask Oxygen Flow Rate 6 6 6 10/15/23 21:08 10/15/23 22:13 Temperature Pulse Rate 54 56 Respiratory Rate 17 16 Blood Pressure 118/54 L 114/57 L Pulse Oximetry 96 99 Oxygen Delivery Method Nasal Cannula Nasal Cannula Oxygen Flow Rate 4 4 BMI result Body Mass Index 16.4 Appearance: Alert. Oriented X3. No acute distress. Lethargic sleepy Eyes: PERRLA, No Nystagmus ENT: Pharynx normal. Oral Mucosa dry Neck: Normal inspection. Neck supple. CVS: Normal heart rate and rhythm. Pulses normal. Respiratory: No respiratory distress. Equal air entry bilateral, no wheezing/rales/rhonchi Abdomen: Soft and nontender. Bowel sounds are present, Skin: Skin warm and dry. Normal skin color. Normal skin turgor. Extremities: No lower extremity edema. No calf tenderness surgical scar of left THR healthy Neuro: Oriented X 3. No motor deficit. Medications Administered Generic Name Dose Route Start Last Admin Trade Name Freq PRN Reason Stop Dose Admin Apixaban 2.5 mg 10/15/23 21:45 10/15/23 22:04 Apixaban 2.5 Mg Tablet PO 2.5 mg BID LIO Administration Sodium Chloride 1,000 mls @ 100 mls/hr 10/15/23 22:45 10/15/23 22:39 Ns IVCONT 100 mls/hr .Q10H LIO Administration Cefepime HCl 2 gm/ Sodium 50 mls @ 100 mls/hr 10/15/23 23:00 10/15/23 22:46 Chloride IV 100 mls/hr Q12H LIO Administration Discontinued Medications Generic Name Dose Route Start Last Admin Trade Name Freq PRN Reason Stop Dose Admin Diltiazem HCl 10 mg 10/15/23 18:58 10/15/23 19:28 Diltiazem Hcl 50 Mg/10 Ml Vial IVPUSH 10/15/23 18:59 10 mg STAT STA Administration Sodium Chloride 1,000 mls @ 999 mls/hr 10/15/23 17:02 10/15/23 19:32 Ns IV 10/15/23 18:02 Infused .Q1H1M ONE Infusion Sodium Chloride 1,000 mls @ 999 mls/hr 10/15/23 18:57 10/15/23 20:46 Ns IV 10/15/23 19:57 Infused .Q1H1M ONE Infusion Ceftriaxone Sodium 1 gm/ 50 mls @ 100 mls/hr 10/15/23 18:59 10/15/23 21:36 Sodium Chloride IV 10/15/23 19:28 Infused ONCE ONE Infusion Metoprolol Tartrate 5 mg 10/15/23 20:41 10/15/23 20:46 Metoprolol Tartrate 5 Mg/5 Ml Vial IVPUSH 10/15/23 20:42 5 mg ONCE ONE Administration Medical Decision Making Medical Decision Making [facility] Narrative: Patient increased sedation and lethargic with atrial fibrillation with rapid ventricular rate patient is on Eliquis 2.5 twice daily for surgery no record of AFib chest x-ray showed possible aspiration pneumonia. Will admit patient for IV hydration control of the heart rate patient was given Cardizem 10 mg with partial response but responded to metoprolol 2.5 mg heart rate now is around 80 still AFib 23: 28 Patient converted to normal sinus rhythm after Lopressor received only 2.5 mg and sinus bradycardia with heart rate 58 Differential Diagnosis Differential Diagnoses: The differential diagnosis associated with the presentation includes Metabolic encephalopathy/polypharmacy/aspiration pneumonia/opoor oral intake Admission/Observation Consideration of admission/observation: Escalation of care including admission/observation considered Consult Healthcare Provider Management of the patient was discussed with: Hospitalist Lab Data [facility] Lab Attestation statement: I reviewed the patient's lab results. 10/15/23 18:05 10/15/23 18:05 Labs: Lab Results 10/15/23 10/15/23 10/15/23 Range/Units 17:36 18:05 19:38 WBC 16.1 H (4.8-10.8) X10*3/uL RBC 3.61 L (4.20-5.50) X10*6/uL Hgb 9.0 L (12.0-16.0) g/dl Hct 30.0 L (37.0-47.0) % MCV 83.1 (80.0-98.0) fL MCH 24.9 L (27.0-33.0) pg MCHC 30.0 L (31.0-35.0) g/dl RDW 18.4 H (11.0-16.0) % Plt Count 604 H D (160-400) X10*3/uL MPV 10.7 (9.4-12.3) fL Immature Gran % (Auto) 0.5 H (0.0-0.4) % Neut % (Auto) 83.0 H (45-73) % Lymph % (Auto) 8.4 L (20-40) % Sullivan % (Auto) 6.0 (2-11) % Eos % (Auto) 1.7 (0-4) % Baso % (Auto) 0.4 (0-2) % Lymph # (Auto) 1.4 (1.2-4.9) X10*3/uL Sullivan # (Auto) 1.0 (0.1-1.2) X10*3/uL Eos # (Auto) 0.3 (0.0-0.4) X10*3/uL Baso # (Auto) 0.1 (0.0-0.2) X10*3/uL Abs Immat Gran (auto) 0.08 H (0.00-0.03) X10*3/uL Absolute Neuts (auto) 13.4 H (2.0-8.3) x10*3/uL Absolute Nucleated RBC 0.060 H (0.0-0.012) X10*3/uL Nucleated RBC % (auto) 0.4 H (0.0-0.2) /100WBC PT 16.2 H (11.1-13.3) SEC INR 1.3 H (0.9-1.1) APTT 34.3 (26.0-36.4) SEC Sodium 146 H (135-145) mmol/L Potassium 4.3 (3.3-5.1) mmol/L Chloride 107 (96-108) mmol/L Carbon Dioxide 27 (22-29) mmol/L Anion Gap 16 (12-20) BUN 28 H (9-16) mg/dL Creatinine 1.07 (0.5-1.4) mg/dL Estim Creat Clear Calc 34.3 Estimated GFR 51 Random Glucose 95 (60-115) mg/dL Lactic Acid (0.5-2.0) mmol/L Calcium 8.8 D (8.4-10.2) mg/dL Magnesium 2.5 (1.6-2.6) mg/dL Total Bilirubin 0.4 (0.0-1.0) mg/dL AST 110 H (5-31) U/L ALT 37 H (0-31) U/L Alkaline Phosphatase 164 H (39-117) U/L Total Protein 6.6 (6.5-8.0) g/dL Albumin 3.2 L (3.5-5.0) g/dL Urine Color Yellow Urine Appearance Clear Urine pH 5.5 (5.0-9.0) Ur Specific [place] 1.015 (1.005-1.025) Urine Protein Negative (Neg-Trace) mg/dL Urine Glucose (UA) Negative (Negative) mg/dL Urine Ketones Trace (Negative) mg/dL Urine Blood Negative (Negative) Urine Nitrite Negative (Negative) Ur Leukocyte Esterase Negative (Negative) COVID-19 ([place]) Negative (Negative) COVID-19 Clin Com See Note 10/15/23 Range/Units 20:20 WBC (4.8-10.8) X10*3/uL RBC (4.20-5.50) X10*6/uL Hgb (12.0-16.0) g/dl Hct (37.0-47.0) % MCV (80.0-98.0) fL MCH (27.0-33.0) pg MCHC (31.0-35.0) g/dl RDW (11.0-16.0) % Plt Count (160-400) X10*3/uL MPV (9.4-12.3) fL Immature Gran % (Auto) (0.0-0.4) % Neut % (Auto) (45-73) % Lymph % (Auto) (20-40) % Sullivan % (Auto) (2-11) % Eos % (Auto) (0-4) % Baso % (Auto) (0-2) % Lymph # (Auto) (1.2-4.9) X10*3/uL Sullivan # (Auto) (0.1-1.2) X10*3/uL Eos # (Auto) (0.0-0.4) X10*3/uL Baso # (Auto) (0.0-0.2) X10*3/uL Abs Immat Gran (auto) (0.00-0.03) X10*3/uL Absolute Neuts (auto) (2.0-8.3) x10*3/uL Absolute Nucleated RBC (0.0-0.012) X10*3/uL Nucleated RBC % (auto) (0.0-0.2) /100WBC PT (11.1-13.3) SEC INR (0.9-1.1) APTT (26.0-36.4) SEC Sodium (135-145) mmol/L Potassium (3.3-5.1) mmol/L Chloride (96-108) mmol/L Carbon Dioxide (22-29) mmol/L Anion Gap (12-20) BUN (9-16) mg/dL Creatinine (0.5-1.4) mg/dL Estim Creat Clear Calc Estimated GFR Random Glucose (60-115) mg/dL Lactic Acid 0.9 (0.5-2.0) mmol/L Calcium (8.4-10.2) mg/dL Magnesium (1.6-2.6) mg/dL Total Bilirubin (0.0-1.0) mg/dL AST (5-31) U/L ALT (0-31) U/L Alkaline Phosphatase (39-117) U/L Total Protein (6.5-8.0) g/dL Albumin (3.5-5.0) g/dL Urine Color Urine Appearance Urine pH (5.0-9.0) Ur Specific [place] (1.005-1.025) Urine Protein (Neg-Trace) mg/dL Urine Glucose (UA) (Negative) mg/dL Urine Ketones (Negative) mg/dL Urine Blood (Negative) Urine Nitrite (Negative) Ur Leukocyte Esterase (Negative) COVID-19 ([place]) (Negative) COVID-19 Clin Com Independent Interpretation I performed an independent interpretation of an: EKG and Plain X-Ray Interpretation: Atrial fibrillation with rapid ventricular rate of 130 beats per minute nonspecific ST and T-wave changes no acute ischemia Radiology Impression Discussion of test interpretation with radiology: I have reviewed the radiologist's reading. Discharge Plan Discharge Clinical Impression: Atrial fibrillation, new onset, Weakness, Acute metabolic encephalopathy, Aspiration pneumonia Patient Disposition: Admitted As Inpatient
[2023-10-15 17:53] LABS: COVID-19 Test Negative (Negative); IDNOW Serial# 58CA691E
--- NOTE | 2023-10-15 18:03 | PC.NURSE ---
Late entry; pt changed into hospital attire, cleaned up copious amounts of dried and hard stool between legs and on buttocks. PT oriented to self only at this time. Difficult stick, no labs drawn yet nor IV placed, MD aware.
[2023-10-15 18:13] LABS: MANUAL DIFF FLAG NO
[2023-10-15 18:16] LABS: Basophils Absolute Auto 0.1 X10*3/uL (0.0-0.2); Basophils Percent Auto 0.4 % (0-2); Eosinophils Absolute Auto 0.3 X10*3/uL (0.0-0.4); Eosinophils Percent Auto 1.7 % (0-4); Imm Gran Abs Auto 0.08 X10*3/uL (0.00-0.03); Imm Gran Pct Auto 0.5 % (0.0-0.4); Lymphocytes Absolute Auto 1.4 X10*3/uL (1.2-4.9); Lymphocytes Percent Auto 8.4 % (20-40); Mean Corpuscular Hemoglobin 24.9 pg (27.0-33.0); Mean Corpuscular Volume 83.1 fL (80.0-98.0); Mean Platelet Volume 10.7 fL (9.4-12.3); NRBC Pct Auto 0.4 /100WBC (0.0-0.2); Neutrophils Absolute Auto 13.4 x10*3/uL (2.0-8.3); Platelet Count 604 X10*3/uL (160-400); Red Blood Count 3.61 X10*6/uL (4.20-5.50); Red Cell Distribution Width 18.4 % (11.0-16.0); White Blood Count 16.1 X10*3/uL (4.8-10.8)
[2023-10-15] MEDS: 0.9 % Sodium Chloride 1,000 ML 999 ML IV ×2 (18:17→19:32)
--- NOTE | 2023-10-15 18:17 | PC.NURSE ---
IV obtained by [facility] in [place], fluids running now
[2023-10-15 18:25] LABS: INTERNATIONAL NORM RATIO 1.3 (0.9-1.1); Prothrombin Time 16.2 SEC (11.1-13.3)
[2023-10-15 18:27] LABS: Partial Thromboplastin Time 34.3 SEC (26.0-36.4)
[2023-10-15 18:29] LABS: Magnesium 2.5 mg/dL (1.6-2.6)
[2023-10-15 18:30] LABS: Alanine Aminotransferase 37 U/L (0-31); Albumin Level 3.2 g/dL (3.5-5.0); Alkaline Phosphatase 164 U/L (39-117); Anion Gap 16 (12-20); Aspartate Amino Transferase 110 U/L (5-31); Bilirubin Total 0.4 mg/dL (0.0-1.0); Blood Urea Nitrogen 28 mg/dL (9-16); Calcium 8.8 mg/dL (8.4-10.2); Carbon Dioxide 27 mmol/L (22-29); Chloride 107 mmol/L (96-108); Creatinine Clr Calc Pharmacy 34.3; Estimated Glomerular Filt Rate 51; Glucose Random 95 mg/dL (60-115); Potassium 4.3 mmol/L (3.3-5.1); Sodium 146 mmol/L (135-145); Total Protein 6.6 g/dL (6.5-8.0)
[2023-10-15] MEDS: dilTIAZem HCL 50 MG/10 ML VIAL 10 MG IVPUSH (19:28)
--- NOTE | 2023-10-15 19:41 | MHC.EDTECH ---
Lactic is delayed. Due to Nurse putting in a Catheter. plan of care is ongoing.
[2023-10-15 20:01] LABS: Appearance Urine Clear; Color Urine Yellow; Glucose Urine UA Negative (Negative); Leukocyte Esterase Urine Negative (Negative); Nitrite Urine Negative (Negative); PH 5.5 (5.0-9.0); Specific Gravity - Urine 1.015 (1.005-1.025); Urine Blood Negative (Negative); Urine Ketones Trace mg/dL (Negative); Urine Protein Negative (Neg-Trace)
--- NOTE | 2023-10-15 20:04 | PC.NURSE ---
antibiotics late at this time due to pt being difficult stick, unable to obtain blood cultures at this time
--- NOTE | 2023-10-15 20:07 | MHC.EDTECH ---
This Tech and Nurse try multiple times to obtain Bloodwork. Unable to get. This Tech called phlebotomies. Plan of care is ongoing.
--- NOTE | 2023-10-15 20:09 | PHA.MEDREC ---
Pharmacy Consult ? Medication Reconciliation Pharmacy has completed the medication reconciliation. Patient with AMS, unable to respond. Attempted to call however phone number in EMR did not work. Utilized claim history to complete med rec. Salome Ayala CPhT
[2023-10-15 20:37] LABS: Lactic Acid 0.9 mmol/L (0.5-2.0)
[2023-10-15] MEDS: cefTRIAXone sodium 1 GM in 0.9 % Sodium Chloride 50 ML IV (20:42)
[2023-10-15] MEDS: Metoprolol Tartrate 5 MG/5 ML VIAL IVPUSH (20:46)
--- NOTE | 2023-10-15 21:39 | PC.NURSE ---
Late entry: This RN and Stephy RN gave 2.5 mg Lopressor per verbal order of MD Mclean. Pt initially did not respond to dose. After a couple minutes, patients rate dropped to 50s. MD Mclean aware and at bedside. Pt asymptomatic. Fluids running as per RICK
--- NOTE | 2023-10-15 21:49 | PC.NURSE ---
pt to CT at this time
--- NOTE | 2023-10-15 21:56 | PC.NURSE ---
Pt unable to keep arm straight with IV. Unable to follow basic commands, attempting to take her O2 off. Difficult to re-direct. aware
[2023-10-15] MEDS: Apixaban 2.5 MG TABLET PO (22:04)
--- NOTE | 2023-10-15 22:38 | PM.IMHP ---
History of Present Illness Date of Service: 10/15/23 Attending physician on admission: Niharika Wright Chief Complaint: weakness, poor po intake, encephalopathy 68-year-old female with history of hypertension, peripheral artery disease anticoagulated with Eliquis, AAA, history cocaine abuse in remission, CKD stage 3, history TIA, former smoker, with recent admission to [facility] for a left hip fracture s/p left RENETTA (10/03) with discharge on 10/08- was recommended for skilled rehab but declined and was discharged home with services-presented to the ED earlier today via EMS due to significantly limited p.o. intake, weakness, dehydration, per EMS report, the patient has been deteriorating since her discharge. The patient is encephalopathic and is unable to provide meaningful history. And review of [facility] chart, on discharge, the patient was lucid. She lives at home with her who is unable to be reached at this time for further history. On arrival, patient tachycardic to 137, vitals otherwise stable. Per ED reprot, patient was in AFib RVR (new onset) though no EKG is available for review. Given 2.5mg IV lopressor, 10 mg diltiazem, and 2L IVF with conversion to NSR, rates high 50s. There is a leukocytosis of 16.1, possibly hemoconcentrated. H/H 9.0/30.0%, improved since discharge from [facility]. Platelets 604. Renal function baseline though BUN increased to 28, electrolyte levels normal except for mild hyponatremia of 146. Lactic acid 0.9. AST 110, ALT 37. Urinalysis unremarkable. Chest x-ray shows new airspace opacities in the left lung with associated volume loss and leftward mediastinal shifting and a small left-sided pleural effusion suspicious for aspiration/pneumonia as well as atelectasis. XR left pelvis shows total left-sided hip arthroplasty without evidence of hardware fracture or complication and no acute fracture or subluxation. Head CT negative for any acute intracranial abnormality which shows mild generalized atrophy and nonspecific periventricular white matter disease. Review of Systems Review of Systems: Yes Unobtainable due to mental status [facility] Medical History History of cocaine abuse Former smoker Fracture of left tibial plateau Abdominal aortic aneurysm HTN (hypertension) PAD (peripheral artery disease) Surgical History S/P total left hip arthroplasty S/P femoral-femoral bypass surgery Social History Unable to assess alcohol history related to: Refusing to respond Alcohol intake: never Patient Tobacco Use Status: Former Tobacco user Smoked in Last 30 Days: Yes Use of substances other than those prescribed or required for medical reasons: Refusing to respond Advance Directives: Yes Advance Directives on File: Yes Advance Directives Date on File: 06/27/21 Nutrition Risks: Difficulty swallowing Current occupational status: disabled 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 Meds Allergies Allergy/AdvReac Type Severity Reaction Status Date / Time penicillin V Allergy Unknown Unknown Verified 08/02/23 12:53 Penicillins Allergy Unknown UNKNOWN Verified 08/02/23 12:53 lisinopril [LISINOPRIL] AdvReac Intermediate hyperkalemia Verified 08/02/23 12:53 (on multiple re-starts) see 02/09/19 admission adhesive tape AdvReac Redness of Verified 08/02/23 12:53 Skin gabapentin AdvReac Vomiting Verified 08/02/23 12:53 From Thorazine Allergy Severe HIVES Uncoded 08/02/23 12:53 Active Medications: Current Medications Acetaminophen (Acetaminophen 325 Mg Tablet) 650 mg PO Q6H PRN PRN Reason: Pain, Mild (Pain Scale 1-3) Amlodipine Besylate (Amlodipine Besylate 5 Mg Tablet) 5 mg PO DAILY [facility]; Protocol Apixaban (Apixaban 2.5 Mg Tablet) 2.5 mg PO BID [facility] Last Admin: 10/15/23 22:04 Dose: 2.5 mg Docusate Sodium (Docusate Sodium 100 Mg Capsule) 100 mg PO BID PRN PRN Reason: constipation Ezetimibe (Ezetimibe 10 Mg Tablet) 10 mg PO DAILY [facility] Sodium Chloride (Ns) 1,000 mls @ 100 mls/hr IVCONT .Q10H [facility] Levothyroxine Sodium (Levothyroxine Sodium 50 Mcg Tablet) 50 mcg PO DAILY@0600 [facility] Magnesium Oxide (Magnesium Oxide 400 Mg Tablet) 400 mg PO BID [facility] Non-Formulary Medication (Buprenorphine) 1 patch TRANSDERMA FR [facility] Omeprazole (Omeprazole 20 Mg Capsule.Dr) 20 mg PO DAILY@0630 [facility] Ondansetron HCl (Ondansetron Hcl 4 Mg/2 Ml Vial) 4 mg IVPUSH Q8H PRN PRN Reason: Nausea and Vomiting Oxycodone HCl (Oxycodone Hcl Immed Release 5 Mg Tablet) 5 mg PO Q4H PRN PRN Reason: Severe Pain (Scale Score 7-10) Sodium Chloride (0.9 % Sodium Chloride Flush 3 Ml Syringe) 3 ml IVFLUSH QSHIFT [facility] Tramadol HCl (Tramadol Hcl 50 Mg Tablet) 50 mg PO Q6H PRN PRN Reason: Moderate Pain (Scale Score 5-6) Venlafaxine HCl (Venlafaxine Hcl Er 37.5 Mg Cap.Er.24h) 37.5 mg PO DAILY [facility] Vitamin D (Cholecalciferol (Vitamin D3) 25 Mcg Tablet) 50 mcg PO DAILY [facility] Home Medications Medication Instructions Recorded Confirmed Last Taken Type cholecalciferol (vitamin D3) 50 50 mcg PO DAILY 06/26/21 10/15/23 08/02/23 History mcg (2,000 unit) tablet (Vitamin D3) levothyroxine 50 mcg tablet 1 tab PO DAILY@0600 06/26/21 10/15/23 08/02/23 History omeprazole 20 mg capsule,delayed 1 cap PO DAILY 06/26/21 10/15/23 08/02/23 History release amlodipine 5 mg tablet 5 mg PO DAILY 08/02/23 10/15/23 08/02/23 History ezetimibe 10 mg tablet 10 mg PO DAILY 08/02/23 10/15/23 08/02/23 History venlafaxine 37.5 mg 37.5 mg PO DAILY 08/02/23 10/15/23 08/02/23 History capsule,extended release 24 hr apixaban 2.5 mg tablet (Eliquis) 2.5 mg PO BID 10/15/23 10/15/23 Unknown History buprenorphine 15 mcg/hour weekly 1 patch transdermal FR 10/15/23 10/15/23 Unknown History transdermal patch docusate sodium 100 mg capsule 100 mg PO BID PRN constipation 10/15/23 10/15/23 Unknown History magnesium oxide 400 mg (241.3 mg 400 mg PO BID 10/15/23 10/15/23 Unknown History magnesium) tablet oxycodone 5 mg tablet 5 mg PO Q4H PRN Severe Pain (Scale 10/15/23 10/15/23 Unknown History Score 7-10) tramadol 50 mg tablet 50 - 100 mg PO Q6H PRN Moderate 10/15/23 10/15/23 Unknown History Pain (Scale Score 5-6) Physical Exam Vital Signs and Narrative: Vital Signs: Last Vital Signs Temp 98.8 F 10/15/23 18:00 Pulse 56 10/15/23 22:13 Resp 16 10/15/23 22:13 BP 114/57 L 10/15/23 22:13 Pulse Ox 99 10/15/23 22:13 O2 Del Method Nasal Cannula 10/15/23 22:13 O2 Flow Rate 4 10/15/23 22:13 BMI result Body Mass Index 16.4 Constitutional - Awake and Alert, No apparent distress Eyes - PERRLA, EOMI Cardiovascular - S1S2, RRR, No edema Respiratory - Normal lung expansion, Normal respiratory effort, No respiratory distress on 2L supplemental O2, bilateral rhonchi Gastrointestinal - NT / ND; +BS; No rebound or guarding Extremities - no calf tenderness bilaterally, no swelling Musculoskeletal - valgus angulation left knee Skin - Warm/Dry Neurological - Alert & disoriented, unable to follow commands, attempting to get out of bed Psychological - Appropriate affect Results Labs 10/15/23 18:05 10/15/23 18:05 Labs: Laboratory Results - last 24 hr 10/15/23 10/15/23 10/15/23 17:36 18:05 19:38 MCV 83.1 MCH 24.9 L MCHC 30.0 L RDW 18.4 H Plt Count 604 H D MPV 10.7 Immature Gran % (Auto) 0.5 H Neut % (Auto) 83.0 H Lymph % (Auto) 8.4 L Leon % (Auto) 6.0 Eos % (Auto) 1.7 Baso % (Auto) 0.4 Lymph # (Auto) 1.4 Leon # (Auto) 1.0 Eos # (Auto) 0.3 Baso # (Auto) 0.1 Abs Immat Gran (auto) 0.08 H Absolute Neuts (auto) 13.4 H Absolute Nucleated RBC 0.060 H Nucleated RBC % (auto) 0.4 H PT 16.2 H INR 1.3 H APTT 34.3 Anion Gap 16 Estim Creat Clear Calc 34.3 Estimated GFR 51 Random Glucose 95 Lactic Acid Calcium 8.8 D Magnesium 2.5 Total Bilirubin 0.4 AST 110 H ALT 37 H Alkaline Phosphatase 164 H Total Protein 6.6 Albumin 3.2 L Urine Color Yellow Urine Appearance Clear Urine pH 5.5 Ur Specific [place] 1.015 Urine Protein Negative Urine Glucose (UA) Negative Urine Ketones Trace Urine Blood Negative Urine Nitrite Negative Ur Leukocyte Esterase Negative COVID-19 ([facility]) Negative COVID-19 Clin Com See Note 10/15/23 20:20 MCV MCH MCHC RDW Plt Count MPV Immature Gran % (Auto) Neut % (Auto) Lymph % (Auto) Leon % (Auto) Eos % (Auto) Baso % (Auto) Lymph # (Auto) Leon # (Auto) Eos # (Auto) Baso # (Auto) Abs Immat Gran (auto) Absolute Neuts (auto) Absolute Nucleated RBC Nucleated RBC % (auto) PT INR APTT Anion Gap Estim Creat Clear Calc Estimated GFR Random Glucose Lactic Acid 0.9 Calcium Magnesium Total Bilirubin AST ALT Alkaline Phosphatase Total Protein Albumin Urine Color Urine Appearance Urine pH Ur Specific [place] Urine Protein Urine Glucose (UA) Urine Ketones Urine Blood Urine Nitrite Ur Leukocyte Esterase COVID-19 ([facility]) COVID-19 Clin Com Imaging Radiologist's Impressions: Impressions Chest X-Ray 10/15/23 18:45 IMPRESSION: New airspace opacities in the left lung with associated volume loss, leftward mediastinal shifting and a small left-sided pleural effusion suspicious for aspiration/pneumonia as well as some degree of atelectasis in view of the volume loss and mediastinal shift. 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 Further evaluation with CT chest with IV contrast could be obtained as clinically warranted. Pelvis X-Ray 10/15/23 18:45 IMPRESSION: 1. Total left-sided hip arthroplasty without evidence of hardware fracture or complication. 2. No acute fractures or subluxation. Head CT 10/15/23 22:03 IMPRESSION: No acute findings. Mild generalized atrophy and nonspecific periventricular white matter disease. Left maxillary sinus disease. Assessment and Plan (1) Acute metabolic encephalopathy: Status: Acute (2) Acute dehydration: Status: Acute (3) New onset atrial fibrillation: Status: Acute (4) Acute hypoxemic respiratory failure: Status: Acute (5) Aspiration pneumonia: Status: Acute Plan 68-year-old female with history of hypertension, peripheral artery disease anticoagulated with Eliquis, AAA, history cocaine abuse in remission, CKD stage 3, history TIA, former smoker, with recent admission to [facility] for a left hip fracture s/p left RENETTA (10/03) with discharge on 10/08- was recommended for skilled rehab but declined and was discharged home with services- admitted for further management of aspiration pneumonia with acute hypoxemic respiratory failure and acute metabolic encephalopathy # acute aspiration pneumonia with acute hypoxemic respiratory failure -CXR shows new airspace opacities in the left lung with associated volume loss and leftward mediastinal shifting and small left-sided pleural effusion suspicious for aspiration/pneumonia -IV cefepime (initiated 10/15), PCN allergy but has tolerated cefepime in the past -keep NPO for now pending [employer] evaluation -continue supplemental O2 to maintain oximetry greater than 92%, wean as tolerated -follow CBC, cultures # acute metabolic encephalopathy -likely in the setting acute aspiration pneumonia -head CT negative for any acute intracranial abnormality -given history of substance use, urine drug screen pending -antibiotics as above -monitor mentation # new onset atrial fibrillation with RVR -rate controlled on admission- likely related to acute dehydration -appears to have converted to NSR telemetry, repeat EKG ordered -continue Eliquis for anticoagulation -echocardiogram -cardiology consult -monitor on telemetry # left hip fracture s/p RENETTA 10/03 -xr L hip/pelvis shows in tact prosthesis without fx or dislocation -pt eval #Poor PO intake/deconditioning -has been declining since dc from [facility] per ems report/ (unable to reach for further history) -declined STR, home with services -continue IVF -NPO for now due to above -nutrition to follow -pt eval # CKD stage 3 -renal function baseline -follow BMP # hypertension -BP reasonably controlled -continue amlodipine # PAD -continue Eliquis DVT prophylaxis-Eliquis Full code Patient requires inpatient stay at least 2 midnights for management of acute aspiration pneumonia with acute hypoxemic respiratory failure and metabolic encephalopathy requiring IV antibiotics, supplemental O2, and close monitoring of mental status with probable placement to STR given overall decline/deconditioning since hip fracture 10/03 Quality Stroke Does the patient have a stroke diagnosis?: No VTE Prior VTE?: No VTE Risk Level:: Medical - moderate - high VTE Device Contraindication: Treatment Not Indicated VTE Drug Contraindication: N/A - Med Ordered
[2023-10-15] MEDS: 0.9 % Sodium Chloride 1,000 ML 100 ML IVCONT (22:39)
[2023-10-15] MEDS: cefEPime HCl 2 GM in 0.9 % Sodium Chloride 50 ML IV (22:46)
--- NOTE | 2023-10-15 23:20 | ECG_ITS ---
Test Reason : TACHYCARDIA Blood Pressure : / mmHG Vent. Rate : 130 BPM Atrial Rate : 000 BPM P-R Int : 000 ms QRS Dur : 068 ms QT Int : 340 ms P-R-T Axes : 000 052 -68 degrees QTc Int : 500 ms Atrial fibrillation with rapid ventricular response Nonspecific ST and T wave abnormality Abnormal ECG When compared with ECG of 03-AUG-2023 07:43, Atrial fibrillation has replaced Sinus rhythm Vent. rate has increased BY 69 BPM Nonspecific T wave abnormality now evident in Inferior leads Inverted T waves have replaced nonspecific T wave abnormality in Anterior leads Referred By: Herbie Mclean Electronically Signed By:Steven Jenkins
[2023-10-16] VITALS (10 sets, daily range): BP systolic 128–154; BP diastolic 40–71; PULSE 55–71; RESP 16–20; TEMP 36.1–36.9; O2SAT 88–95; BMI 21.8
--- NOTE | 2023-10-16 01:03 | PC.NURSE ---
Pt repositioned in bed and extra sheets removed. Head of the bed elevated and pt given fresh blankets. Needs to be reminded regularly to keep her right arm straight for IV infusion. Call light within reach.
[2023-10-16] MEDS: 0.9 % Sodium Chloride Flush 3 ML SYRINGE IVFLUSH ×3 (02:10→20:23)
--- NOTE | 2023-10-16 02:22 | PC.NURSE ---
Pt is consistently taking off SPO2 sensor, monitor leads, and oxygen. Needs constant redirection. Answers questions appropriately and is easily arousable to verbal stimuli. Pt is regularly repositioned in bed because she continues to slide down. Admission is pending.
--- NOTE | 2023-10-16 04:28 | PC.NURSE ---
New SPO2 sensor secured to patient's foot and secured with tape, SPO2 95% when sensor is left alone.
--- NOTE | 2023-10-16 04:48 | PC.NURSE ---
Oxygen increased to 3 LPM via NC
--- NOTE | 2023-10-16 05:33 | PC.NURSE ---
Pt refused lab work.
--- NOTE | 2023-10-16 05:43 | PC.NURSE ---
Board splint applied to right arm for help with IV fluid administration. Pt is on a pump at 100 ml/hr, because pt has to be consistently redirected to keep her arm straight only a minimal amount of fluid has infused.
[2023-10-16 05:56] LABS: Amphetamine Screen Urine Not Detected (Not Detect); Barbiturates, Urine Not Detected (Not Detect); Benzodiazepines Screen Urine Not Detected (Not Detect); Cannabinoid Screen Urine Not Detected (Not Detect); Cocaine Screen Urine Not Detected (Not Detect); Fentanyl, urine Not Detected (Not Detect); Opiate Screen Urine POSITIVE (Not Detect); Phencyclidine Screen Urine Not Detected (Not Detect)
[2023-10-16] MEDS: Levothyroxine Sodium 50 MCG TABLET PO (06:23)
[2023-10-16] MEDS: Omeprazole 20 MG CAPSULE.DR PO (06:23)
--- NOTE | 2023-10-16 06:28 | PC.NURSE ---
Pt is frequently restless in bed, and needs redirection for oxygen therapy. IV infusion improved with application of board splint and SPO2 monitoring has improved with application of socks. Took morning medications without issue. Lights are dimmed and pt is attempting to sleep. VS stable.
--- NOTE | 2023-10-16 07:00 | CA_ITS ---
Transthoracic Echocardiogram Patient (Last, First, Middle): Annalise Young L Gender: Female Date of : 1955 Age: 68 Procedure Date: 10/16/2023 Procedure Type: Transthoracic [place] [facility] [place]: 160.02 cm Weight: 42.18 kg BSA: 1.40 m2 Heart Rate: 63 bpm BP: 146 / 54 mmHg Marine Fisheries Technician: Referring MD: Ronna HAWLEY Symptoms: new onset afib Study Quality: Technically Difficult due to supine position ECG Rhythm: Sinus Conclusions: - Normal left ventricular size, thickness, systolic function, and wall motion. The visually estimated ejection fraction is between 65-70%. Diastolic function is normal for age. - Mildly increased right ventricular cavity size. There is normal right ventricular systolic function. - Mild pulmonary hypertension is present. Findings Left Ventricle Normal left ventricular size, thickness, systolic function, and wall motion. The visually estimated ejection fraction is between 65-70%. Diastolic function is normal for age. Right Ventricle Mildly increased right ventricular cavity size. There is normal right ventricular systolic function. Atria The left atrium is normal in size. Aortic Valve There is a normal trileaflet aortic valve. There is mild thickening of the aortic valve. There is no aortic valve stenosis. There is no aortic valve regurgitation. Mitral Valve The mitral valve appears normal. There is trace mitral valve regurgitation. There is no mitral valve stenosis. Pulmonic Valve Normal pulmonic valve structure and function. There is trace pulmonic valve regurgitation. Tricuspid Valve Normal tricuspid valve structure. There is mild tricuspid valve regurgitation. Normal right atrial pressure. Mild pulmonary hypertension is present. Great Vessels All visible segments of the aorta are normal in size. The visualized portions of the pulmonary artery and branches are normal. Venous The inferior vena cava is normal in size and collapses greater than 50% with inspiration. Pericardium/Pleural There is no evidence of pericardial effusion. Measurements 2D Linear Measurements IVSd: 0.83 0.6-0.9/0.6-1.0 cm LVIDd: 3.88 3.9-5.3/4.2-5.9 cm LVIDd Index: 2.77 2.4-3.2/2.2-3.1 cm/m2 LVIDs: 2.37 2.0-3.6 cm LVPWd: 0.74 0.7-1.1 cm Ao Root: 2.90 2.1-3.5 cm LA Diam: 3.00 2.7-3.8/3.0-4.0 cm LAIDs Index: 2.14 1.5-2.3 cm/m2 LV Mass: 107.51 67-162/88-224 g LV Mass Index: 76.80 43-95/49-115 g/m2 LVOT Diam: 1.80 3.0+(-)1.3 cm Mitral Valve MV Pk E: 1.17 MV PK A: 0.72 MV Decel Time: 223.00 E/A: 1.60 E'Lateral: 13.30 E'Medial: 9.68 E/E' Med: 12.10 E/E' Lat: 8.80 PHT: 65.00 MVA PHT: 3.38 Decel Faulkner: 5.25 Aortic Valve AoV Pk Addison: 1.56 AoV Mn Addison: 0.84 AoV VTI: 0.37 AoV Pk Grad: 10.00 Aov Mn Grad: 4.00 GARRETT Cont.VTI: 1.31 LVOT LVOT Pk Addison: 0.81 LVOT Mn Addison: 0.50 LVOT VTI: 0.19 LVOT Pk Grad: 3.00 LVOT Mn Grad: 1.00 LVOT Diam: 1.80 LVOT Area: 2.54 Diastolic Function MV Pk E: 1.17 MV Pk A: 0.72 E/A: 1.60 E'Medial: 9.68 E/E' Med: 12.10 E' Laterial: 13.30 E/E' Lat: 8.80 Right Ventricle TAPSE (mm): 23.00 TVS' Addison: 9.00 Tricuspid Valve TR Pk Addison: 3.07 TR Pk Grad: 38.00 RA Press: 3.00 RVSP: 41.00 Great Vessels Aorta Ao Root-2D: 2.90 2.0-3.7 cm Ao Asc: 2.80 2.1-3.4 cm Pulmonary Valve PV Pk Addison: 0.87 Peak PV Grad: 3.00 Updated in Other Vendor System with Status of Final Steven Jenkins MD electronically signed on 10/16/2023 11:46:56 AM with status of Final
--- NOTE | 2023-10-16 07:26 | MHC.EDTECH ---
Patient refused Lab to be drawn.
[2023-10-16] MEDS: Magnesium Oxide 400 MG TABLET PO ×2 (08:02→20:22)
[2023-10-16] MEDS: Apixaban 2.5 MG TABLET PO ×2 (08:02→20:22)
[2023-10-16] MEDS: Cholecalciferol (Vitamin D3) 25 MCG TABLET 50 MCG PO (08:02)
[2023-10-16] MEDS: Venlafaxine HCl ER 37.5 MG CAP.ER.24H PO (08:02)
[2023-10-16] MEDS: amLODIPine Besylate 5 MG TABLET PO (08:02)
[2023-10-16] MEDS: Ezetimibe 10 MG TABLET PO (08:02)
--- NOTE | 2023-10-16 08:08 | PC.NURSE ---
PT A/O X 1(NAME) WITH CONFUSION. PT SPEAKS IN FULL SENTENCES. PT HAS A NON-PROD COUGH. PT HAS SWALLOW EVAL PENDING. PT GIVEN MEDS IN APPLESAUCE WITH WATER/STRAW AND TOLERATED WELL WITH HOB AT 90 DEGREES.PT HAS IV TO R AC WHICH IS POSITIONAL/BOARDED. PT HAS A [place] CATH WHICH IS PATENT AND DRAINING. NO EDEMA NOTED. PT'S ID BRACELET TO R ANKLE..PT IS ADMITTED. WILL CONTINUE TO MONITOR.
--- NOTE | 2023-10-16 08:40 | PC.NURSE ---
RN TO RN REPORT GIVEN. PT TO BE TRANSFERRED TO [facility] STRETCHER BY TRANSPORTER.
--- NOTE | 2023-10-16 09:24 | P.PNIM_ITS ---
Subjective Subjective Date of Service: 10/16/23 <Aimee Matta - Last Filed: 10/16/23 10:54> 10/17/23 <Melly So MD - Last Filed: 10/17/23 11:19> Interval History: Patient being followed for metabolic encephalopathy, aspiration pneumonia, and new onset AFIB with RVR. No fever, chills, nausea/vomiting, shortness of breath, chest pain, light-headedness. <Aimee Matta - Last Filed: 10/16/23 10:54> Review of Systems Review of Systems: Yes all other systems are reviewed and are negative <Aimee Matta - Last Filed: 10/16/23 10:54> Physical Exam 2 Vital Signs: Vital Signs: Last Vital Signs Temp 97.6 F 10/16/23 08:00 Pulse 62 10/16/23 08:00 Resp 19 10/16/23 08:00 BP 142/40 H 10/16/23 08:00 Pulse Ox 95 10/16/23 07:20 O2 Del Method Nasal Cannula 10/16/23 08:00 O2 Flow Rate 3 10/16/23 08:00 BMI result Body Mass Index 16.4 <Aimee Matta - Last Filed: 10/16/23 10:54> Const: Other: Gen: Appears non-toxic. Somnolent but easily arousable, A&O x 2 and confused, does not appear to be in any acute distress and resting comfortably. HEENT: sclera anicteric Lungs: not tachypneic, clear to auscultation bilaterally with no rhonchi, wheezing, rales. No accessory muscle use Heart: diminished; regular rate and rhythm, no murmurs Abd: soft, non-tender, non-distended Ext: no edema Skin: warm/well-perfused Neuro: alert and oriented x2, no focal findings Psych: appropriate affect <Aimee Matta - Last Filed: 10/16/23 10:54> Other: Gen: Appears non-toxic. Somnolent but easily arousable, A&O x 2 and confused, does not appear to be in any acute distress and resting comfortably. HEENT: sclera anicteric Lungs: not tachypneic, clear to auscultation bilaterally with no rhonchi, wheezing, rales. No accessory muscle use Heart: regular rate and rhythm, no murmurs Abd: soft, non-tender, non-distended Ext: no edema Skin: warm/well-perfused,pale Neuro: alert and oriented x2, no focal findings Psych: appropriate affect <Melly So MD - Last Filed: 10/17/23 11:19> Objective Data Active Medications Acetaminophen (Acetaminophen 325 Mg Tablet) 650 mg PO Q6H PRN PRN Reason: Pain, Mild (Pain Scale 1-3) Amlodipine Besylate (Amlodipine Besylate 5 Mg Tablet) 5 mg PO DAILY REPLACED BY [facility]; Protocol Last Admin: 10/16/23 08:02 Dose: 5 mg Documented By: BRAYAN Apixaban (Apixaban 2.5 Mg Tablet) 2.5 mg PO BID REPLACED BY [facility] Last Admin: 10/16/23 08:02 Dose: 2.5 mg Documented By: BRAYAN Docusate Sodium (Docusate Sodium 100 Mg Capsule) 100 mg PO BID PRN PRN Reason: constipation Ezetimibe (Ezetimibe 10 Mg Tablet) 10 mg PO DAILY REPLACED BY [facility] Last Admin: 10/16/23 08:02 Dose: 10 mg Documented By: BRAYAN Sodium Chloride (Ns) 1,000 mls @ 100 mls/hr IVCONT .Q10H REPLACED BY [facility] Last Admin: 10/15/23 22:39 Dose: 100 mls/hr Documented By: POLI Cefepime HCl 2 gm/ Sodium (Chloride) 50 mls @ 100 mls/hr IV Q12H REPLACED BY [facility] Last Infusion: 10/16/23 02:10 Dose: Infused Documented By: IMAN Levothyroxine Sodium (Levothyroxine Sodium 50 Mcg Tablet) 50 mcg PO DAILY@0600 REPLACED BY [facility] Last Admin: 10/16/23 06:23 Dose: 50 mcg Documented By: IMAN Magnesium Oxide (Magnesium Oxide 400 Mg Tablet) 400 mg PO BID REPLACED BY [facility] Last Admin: 10/16/23 08:02 Dose: 400 mg Documented By: BRAYAN Non-Formulary Medication (Buprenorphine) 1 patch [facility] Omeprazole (Omeprazole 20 Mg Capsule.) 20 mg PO DAILY@0630 REPLACED BY [facility] Last Admin: 10/16/23 06:23 Dose: 20 mg Documented By: IMAN Ondansetron HCl (Ondansetron Hcl 4 Mg/2 Ml Vial) 4 mg IVPUSH Q8H PRN PRN Reason: Nausea and Vomiting Oxycodone HCl (Oxycodone Hcl Immed Release 5 Mg Tablet) 5 mg PO Q4H PRN PRN Reason: Severe Pain (Scale Score 7-10) Sodium Chloride (0.9 % Sodium Chloride Flush 3 Ml Syringe) 3 ml IVFLUSH QSHIFT REPLACED BY [facility] Last Admin: 10/16/23 07:19 Dose: 3 ml Documented By: BRAYAN Tramadol HCl (Tramadol Hcl 50 Mg Tablet) 50 mg PO Q6H PRN PRN Reason: Moderate Pain (Scale Score 5-6) Venlafaxine HCl (Venlafaxine Hcl Er 37.5 Mg Cap.Er.24h) 37.5 mg PO DAILY REPLACED BY [facility] Last Admin: 10/16/23 08:02 Dose: 37.5 mg Documented By: BRAYAN Vitamin D (Cholecalciferol (Vitamin D3) 25 Mcg Tablet) 50 mcg PO DAILY REPLACED BY [facility] Last Admin: 10/16/23 08:02 Dose: 50 mcg Documented By: BRAYAN <Aimee Matta - Last Filed: 10/16/23 10:54> Labs CBC & Chem 7: 10/17/23 06:06 10/17/23 06:06 <Aimee Matta - Last Filed: 10/16/23 10:54> Labs: Laboratory Results - last 24 hr 10/15/23 10/15/23 10/15/23 17:36 18:05 19:38 MCV 83.1 MCH 24.9 L MCHC 30.0 L RDW 18.4 H Plt Count 604 H D MPV 10.7 Immature Gran % (Auto) 0.5 H Neut % (Auto) 83.0 H Lymph % (Auto) 8.4 L [place] % (Auto) 6.0 Eos % (Auto) 1.7 Baso % (Auto) 0.4 Lymph # (Auto) 1.4 [place] # (Auto) 1.0 Eos # (Auto) 0.3 Baso # (Auto) 0.1 Abs Immat Gran (auto) 0.08 H Absolute Neuts (auto) 13.4 H Absolute Nucleated RBC 0.060 H Nucleated RBC % (auto) 0.4 H PT 16.2 H INR 1.3 H APTT 34.3 Anion Gap 16 Estim Creat Clear Calc 34.3 Estimated GFR 51 Random Glucose 95 Lactic Acid Calcium 8.8 D Magnesium 2.5 Total Bilirubin 0.4 AST 110 H ALT 37 H Alkaline Phosphatase 164 H Total Protein 6.6 Albumin 3.2 L Urine Color Yellow Urine Appearance Clear Urine pH 5.5 Ur Specific Counce 1.015 Urine Protein Negative Urine Glucose (UA) Negative Urine Ketones Trace Urine Blood Negative Urine Nitrite Negative Ur Leukocyte Esterase Negative Urine Opiates Screen Urine Fentanyl Screen Ur Barbiturates Screen Ur Phencyclidine Scrn Ur Amphetamines Screen U Benzodiazepines Scrn Urine Cocaine Screen U Marijuana (THC) Screen COVID-19 ([facility]) Negative COVID-19 Clin Com See Note 10/15/23 10/16/23 20:20 05:42 MCV MCH MCHC RDW Plt Count MPV Immature Gran % (Auto) Neut % (Auto) Lymph % (Auto) [place] % (Auto) Eos % (Auto) Baso % (Auto) Lymph # (Auto) [place] # (Auto) Eos # (Auto) Baso # (Auto) Abs Immat Gran (auto) Absolute Neuts (auto) Absolute Nucleated RBC Nucleated RBC % (auto) PT INR APTT Anion Gap Estim Creat Clear Calc Estimated GFR Random Glucose Lactic Acid 0.9 Calcium Magnesium Total Bilirubin AST ALT Alkaline Phosphatase Total Protein Albumin Urine Color Urine Appearance Urine pH Ur Specific Counce Urine Protein Urine Glucose (UA) Urine Ketones Urine Blood Urine Nitrite Ur Leukocyte Esterase Urine Opiates Screen POSITIVE H Urine Fentanyl Screen Not Detected Ur Barbiturates Screen Not Detected Ur Phencyclidine Scrn Not Detected Ur Amphetamines Screen Not Detected U Benzodiazepines Scrn Not Detected Urine Cocaine Screen Not Detected U Marijuana (THC) Screen Not Detected COVID-19 ([facility]) COVID-19 Clin Com <Aimee Matta - Last Filed: 10/16/23 10:54> Assessment and Plan (1) Acute metabolic encephalopathy: Status: Acute <Aimee Matta - Last Filed: 10/16/23 10:54> (2) Atrial fibrillation, new onset: Status: Acute <Aimee Matta - Last Filed: 10/16/23 10:54> (3) Acute hypoxemic respiratory failure: Status: Acute <Aimee Matta - Last Filed: 10/16/23 10:54> Assessment and Plan: 68-year-old female with history of HTN, PAD on Eliquis, AAA, history cocaine abuse in remission, CKD stage 3, history TIA, former smoker, with recent admission to [facility] for a left hip fracture s/p left RENETTA (10/03) with discharge on 10/08- declined skilled - was admitted for management of aspiration pneumonia with acute hypoxemic respiratory failure and acute metabolic encephalopathy Acute metabolic encephalopathy - Could be in the setting of possible aspiration pneumonia or due to use of tramadol/oxycodone/buprenorphine and zolpidem. - D/C oxycodone, tramadol, and zopidem. Begin scheduled Tylenol for pain. - Patient refused labs today, repeat BMP if agreeable. - Urine drug screening was + opiates (has rx for oxycodone, buprenorphine patch, and tramadol as above) - Continue to monitor mentation Acute aspiration pneumonia with acute hypoxemic respiratory failure: -CXR showed new airspace opacities in the left lung with associated volume loss and leftward mediastinal shifting and small left-sided pleural effusion suspicious for aspiration/pneumonia -Continue IV cefepime -Swallow study is pending; keep NPO until evaluated -Continue supplemental O2 to maintain oximetry greater than 92%, wean as tolerated -Blood cultures pending -Repeat CBC if patient agreeable New onset atrial fibrillation with RVR: -TSH with reflex to T4 if patient agreeable; does take levothyroxine -Sinus rhythm today, continue to monitor on telemetry -Continue Eliquis for anticoagulation -Echocardiogram pending -cardiology consult pending Left hip fracture s/p RENETTA 10/03 -xr L hip/pelvis showed in tact prosthesis without fx or dislocation -PT following Poor PO intake/deconditioning -Continue IVF -NPO for now due to above, will advance diet pending swallow study -PT following CKD stage 3: -Follow BMP Hypertension -Continue amlodipine HLD: -Continue home ezetimibe GERD: -Continue home omeprazole Hypothyroidism: -Continue home levothyroxine Mood disorder: -Continue home venlafaxine PAD -Continue Eliquis DVT prophylaxis-Eliquis Full code Inpatient care required for management of acute aspiration pneumonia with acute hypoxemic respiratory failure and metabolic encephalopathy requiring IV antibiotics, supplemental O2, and close monitoring of mental status. <Aimee Matta - Last Filed: 10/16/23 10:54> 68-year-old female with history of HTN, PAD on Eliquis, AAA, history cocaine abuse in remission, CKD stage 3, history TIA, former smoker, with recent admission to [facility] for a left hip fracture s/p left RENETTA (10/03) with discharge on 10/08- declined skilled - was admitted for management of aspiration pneumonia with acute hypoxemic respiratory failure and acute metabolic encephalopathy Acute toxic metabolic encephalopathy - likely due to polypharmacy with use of tramadol/oxycodone/buprenorphine and zolpidem. - D/C tramadol, and zopidem and lower dose of oxycodone,Begin scheduled Tylenol for pain. - Patient refused labs today, repeat BMP if agreeable. - Urine drug screening was + opiates (has rx for oxycodone, buprenorphine patch, and tramadol as above) - Continue to monitor mentation Acute aspiration pneumonia with acute hypoxemic respiratory failure: -CXR showed new airspace opacities in the left lung with associated volume loss and leftward mediastinal shifting and small left-sided pleural effusion suspicious for aspiration/pneumonia -Continue IV cefepime started on October 15 -seen by speech therapy started on thin liquids and ground mechanical altered diet -Continue supplemental O2 to maintain oximetry greater than 92%, wean as tolerated, check ABGs -Blood cultures pending -Repeat CBC /BMP/add incentive spirometry New onset atrial fibrillation with RVR: -TSH with reflex to T4 if patient agreeable; does take levothyroxine -Sinus rhythm today, continue to monitor on telemetry -Continue Eliquis 2.5mg bid for anticoagulation -Echocardiogram pending -seen by Cardiology they recommend beta-blockers Left hip fracture s/p RENETTA 10/03 -xr L hip/pelvis showed in tact prosthesis without fx or dislocation -PT following, minimize narcotics, add stool softeners Poor PO intake/deconditioning -Continue IVF/Ensure supplements -PT following CKD stage 3: -Follow BMP Hypertension -Continue amlodipine HLD: -Continue home ezetimibe GERD: -Continue home omeprazole Hypothyroidism: -Continue home levothyroxine, check TSH Mood disorder: -Continue home venlafaxine PAD -Continue Eliquis DVT prophylaxis-Eliquis Full code Inpatient care required for management of acute aspiration pneumonia with acute hypoxemic respiratory failure and metabolic encephalopathy requiring IV antibiotics, supplemental O2, and close monitoring of mental status. <Melly So MD - Last Filed: 10/17/23 11:19> Quality Stroke Does the patient have a stroke diagnosis?: No <Aimee Matta - Last Filed: 10/16/23 10:54> VTE Prior VTE?: No <Aimee Matta - Last Filed: 10/16/23 10:54> VTE Risk Level:: Medical - moderate - high <Aimee Matta - Last Filed: 10/16/23 10:54> VTE Device Contraindication: Treatment Not Indicated <Aimee Matta - Last Filed: 10/16/23 10:54> VTE Drug Contraindication: N/A - Med Ordered <Aimee Matta - Last Filed: 10/16/23 10:54>
[2023-10-16] MEDS: cefEPime HCl 2 GM in 0.9 % Sodium Chloride 50 ML IV ×2 (10:36→23:36)
--- NOTE | 2023-10-16 11:14 | MHC.SL.SWA ---
Addendum entered and electronically signed by DAYTON Steven 10/16/23 12:54: PAPER SHEETER spoke w/ patient's who reports she eats soft foods at baseline (i.e. frozen vegetable dinner, canned carrots/peas). Patient is vegetarian. Original Note: Risk of Aspiration Due to: History of Pneumonia Poor PO Intake Reduced Cognition Dysphasia Diet Status: UPGRADE from NPO Liquid Consistency and Strategies for Safe Swallow: Liquid Intake Recommendation: Thin Liquid Intake Strategies: Small Sips Solid Food Consistency: Dietary Recommendations: Grnd/Mech Altered (NDD2) Additional Modifications to Solid Foods: Moistened in sauce/gravy Oral Medication Intake: Crushed with Puree Please contact the pharmacy regarding appropriate crushable or liquid drug formulations that are available whenever modified delivery is recommended. Compensatory Strategies and Precautions to be Taken for Safe Swallow: Sitting Upright (90 deg) Small Bites and Sips Rate of Ingestion Change Oral Check Supervision While Eating and Drinking for Safe Swallow: Total Assistance (1:1) Recommendation for Speech: Inpatient Speech Therapy Comment: Recommend UPGRADE to THIN liquids (small, controlled sips) and GROUND/MECH ALTERED solids (NDD2). pills crushed in puree. 1-1 assistance recommended to encourage/manipulate small sips (may have to take straw out of mouth), to monitor s/s aspiration, & secondary to mentation. Patient's baseline diet unclear; patient not producing coherent response. Web Programmer Clinican/Clinical Fellow: No Supervisory Statement: I have reviewed and agree with the student/clinical fellow's documentation: N/A Speech Language Pathologist: Ashwini Burr M.A., CCC-PAPER SHEETER
--- NOTE | 2023-10-16 11:21 | MHC.CM.PN ---
THIS CM ATTEMPTED TO MEET WITH PT, [place] [facility] [place]
--- NOTE | 2023-10-16 12:08 | MHC.CM.PN ---
IMM 10/16/23 HOWEVER WHEN CM BEGAN ASKING QUESTIONS PT UNABLE TO RESPOND APPROPRIATELY, S.O. WAS NO LONGER AT BEDSIDE WHEN CM ATTEMPTED TO MEET W/HIM AND PT, CM ATTEMPTED TO CONTACT PT'S S.O./HCP AT NUMBER ON FILE HOWEVER CM UNABLE TO GET THROUGH D/T RESTRICTIONS ON PHONE, NO OTHER NUMBER LISTED IN CHART, CM TO REVISIT.
--- NOTE | 2023-10-16 13:01 | PM.CNCAR ---
History of Present Illness History of Present Illness Date of Service: 10/16/23 Requesting physician: Melly So Chief complaint: Encephalopathy, aspiration pneumonia, Afib Narrative: 68-year-old female with multiple comorbidities who is presenting after recent left hip surgery performed [facility] with aspiration and AFib with RVR. It appears she was on buprenorphine patch and also was getting some narcotics. She was brought in for weakness and dehydration and poor p.o. intake. She has been confused and I spoke to her partner who said that she has been quite groggy and sleepy since she came back after surgery and has been on the buprenorphine patch and has been taking some narcotics. She does have significant history of hypertension, peripheral vascular disease, AAA, history of cocaine abuse, CKD stage 3, previous TIA and smoking history. Patient is denying any active symptoms. Overall it appears she has been sick for long time and looks quite frail. [facility] Past Medical History Medical History History of cocaine abuse Former smoker Fracture of left tibial plateau Abdominal aortic aneurysm HTN (hypertension) PAD (peripheral artery disease) Surgical History Surgical History S/P total left hip arthroplasty S/P femoral-femoral bypass surgery Social History Social History Household Members: Significant Other Housing: Apartment Do you presently have visiting nurse or other home services: No Unable to assess alcohol history related to: Refusing to respond Alcohol intake: never Patient Tobacco Use Status: Former Tobacco user Advance Directives Date on File: 06/27/21 Current occupational status: disabled 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 Meds Allergies Allergy/AdvReac Type Severity Reaction Status Date / Time penicillin V Allergy Unknown Unknown Verified 08/02/23 12:53 Penicillins Allergy Unknown UNKNOWN Verified 08/02/23 12:53 lisinopril [LISINOPRIL] AdvReac Intermediate hyperkalemia Verified 08/02/23 12:53 (on multiple re-starts) see 02/09/19 admission adhesive tape AdvReac Redness of Verified 08/02/23 12:53 Skin gabapentin AdvReac Vomiting Verified 08/02/23 12:53 From Thorazine Allergy Severe HIVES Uncoded 08/02/23 12:53 Active Medications: Current Medications Acetaminophen (Acetaminophen 325 Mg Tablet) 650 mg PO Q6H PRN PRN Reason: Pain, Mild (Pain Scale 1-3) Amlodipine Besylate (Amlodipine Besylate 5 Mg Tablet) 5 mg PO DAILY [facility]; Protocol Last Admin: 10/16/23 08:02 Dose: 5 mg Apixaban (Apixaban 2.5 Mg Tablet) 2.5 mg PO BID [facility] Last Admin: 10/16/23 08:02 Dose: 2.5 mg Docusate Sodium (Docusate Sodium 100 Mg Capsule) 100 mg PO BID PRN PRN Reason: constipation Ezetimibe (Ezetimibe 10 Mg Tablet) 10 mg PO DAILY [facility] Last Admin: 10/16/23 08:02 Dose: 10 mg Sodium Chloride (Ns) 1,000 mls @ 100 mls/hr IVCONT .Q10H [facility] Last Infusion: 10/16/23 09:56 Dose: Infused Cefepime HCl 2 gm/ Sodium (Chloride) 50 mls @ 100 mls/hr IV Q12H [facility] Last Infusion: 10/16/23 11:07 Dose: Infused Levothyroxine Sodium (Levothyroxine Sodium 50 Mcg Tablet) 50 mcg PO DAILY@0600 [facility] Last Admin: 10/16/23 06:23 Dose: 50 mcg Magnesium Oxide (Magnesium Oxide 400 Mg Tablet) 400 mg PO BID [facility] Last Admin: 10/16/23 08:02 Dose: 400 mg Non-Formulary Medication (Buprenorphine) 1 patch [facility] Omeprazole (Omeprazole 20 Mg Capsule.Dr) 20 mg PO DAILY@0630 [facility] Last Admin: 10/16/23 06:23 Dose: 20 mg Ondansetron HCl (Ondansetron Hcl 4 Mg/2 Ml Vial) 4 mg IVPUSH Q8H PRN PRN Reason: Nausea and Vomiting Oxycodone HCl (Oxycodone Hcl Immed Release 5 Mg Tablet) 5 mg PO Q4H PRN PRN Reason: Severe Pain (Scale Score 7-10) Sodium Chloride (0.9 % Sodium Chloride Flush 3 Ml Syringe) 3 ml IVFLUSH QSHIFT [facility] Last Admin: 10/16/23 07:19 Dose: 3 ml Tramadol HCl (Tramadol Hcl 50 Mg Tablet) 50 mg PO Q6H PRN PRN Reason: Moderate Pain (Scale Score 5-6) Venlafaxine HCl (Venlafaxine Hcl Er 37.5 Mg Cap.Er.24h) 37.5 mg PO DAILY [facility] Last Admin: 10/16/23 08:02 Dose: 37.5 mg Vitamin D (Cholecalciferol (Vitamin D3) 25 Mcg Tablet) 50 mcg PO DAILY [facility] Last Admin: 10/16/23 08:02 Dose: 50 mcg Home Medications Medication Instructions Recorded Confirmed Last Taken Type cholecalciferol (vitamin D3) 50 50 mcg PO DAILY 06/26/21 10/15/23 08/02/23 History mcg (2,000 unit) tablet (Vitamin D3) levothyroxine 50 mcg tablet 1 tab PO DAILY@0600 06/26/21 10/15/23 08/02/23 History omeprazole 20 mg capsule,delayed 1 cap PO DAILY 06/26/21 10/15/23 08/02/23 History release amlodipine 5 mg tablet 5 mg PO DAILY 08/02/23 10/15/23 08/02/23 History ezetimibe 10 mg tablet 10 mg PO DAILY 08/02/23 10/15/23 08/02/23 History venlafaxine 37.5 mg 37.5 mg PO DAILY 08/02/23 10/15/23 08/02/23 History capsule,extended release 24 hr apixaban 2.5 mg tablet (Eliquis) 2.5 mg PO BID 10/15/23 10/15/23 Unknown History buprenorphine 15 mcg/hour weekly 1 patch transdermal FR 10/15/23 10/15/23 Unknown History transdermal patch docusate sodium 100 mg capsule 100 mg PO BID PRN constipation 10/15/23 10/15/23 Unknown History magnesium oxide 400 mg (241.3 mg 400 mg PO BID 10/15/23 10/15/23 Unknown History magnesium) tablet oxycodone 5 mg tablet 5 mg PO Q4H PRN Severe Pain (Scale 10/15/23 10/15/23 Unknown History Score 7-10) tramadol 50 mg tablet 50 - 100 mg PO Q6H PRN Moderate 10/15/23 10/15/23 Unknown History Pain (Scale Score 5-6) Physical Exam Vital Signs: Vital Signs: Last Vital Signs Temp 97.0 F 10/16/23 11:31 Pulse 60 10/16/23 11:31 Resp 20 10/16/23 11:31 BP 128/71 10/16/23 11:31 Pulse Ox 94 10/16/23 11:31 O2 Del Method Nasal Cannula 10/16/23 11:31 O2 Flow Rate 3 10/16/23 11:31 BMI result Body Mass Index 16.4 GENERAL APPEARANCE: in no acute distress, frail appearing. NECK: no carotid bruit, no jugular venous distention. SKIN: no suspicious lesions, warm and dry. HEART: no murmurs, regular rate and rhythm. LUNGS: clear to auscultation bilaterally. ABDOMEN: soft, nontender. EXTREMITIES: no edema. PERIPHERAL PULSES: equal. NEUROLOGIC: Following simple commands. She is somewhat confused and was hallucinating. Objective Labs and Meds 10/15/23 18:05 10/15/23 18:05 Lab results: Laboratory Results - last 24 hr 10/15/23 10/15/23 10/15/23 17:36 18:05 19:38 WBC 16.1 H RBC 3.61 L Hgb 9.0 L Hct 30.0 L MCV 83.1 MCH 24.9 L MCHC 30.0 L RDW 18.4 H Plt Count 604 H D MPV 10.7 Immature Gran % (Auto) 0.5 H Neut % (Auto) 83.0 H Lymph % (Auto) 8.4 L Burke % (Auto) 6.0 Eos % (Auto) 1.7 Baso % (Auto) 0.4 Lymph # (Auto) 1.4 Burke # (Auto) 1.0 Eos # (Auto) 0.3 Baso # (Auto) 0.1 Abs Immat Gran (auto) 0.08 H Absolute Neuts (auto) 13.4 H Absolute Nucleated RBC 0.060 H Nucleated RBC % (auto) 0.4 H PT 16.2 H INR 1.3 H APTT 34.3 Sodium 146 H Potassium 4.3 Chloride 107 Carbon Dioxide 27 Anion Gap 16 BUN 28 H Creatinine 1.07 Estim Creat Clear Calc 34.3 Estimated GFR 51 Random Glucose 95 Lactic Acid Calcium 8.8 D Magnesium 2.5 Total Bilirubin 0.4 AST 110 H ALT 37 H Alkaline Phosphatase 164 H Total Protein 6.6 Albumin 3.2 L Urine Color Yellow Urine Appearance Clear Urine pH 5.5 Ur Specific [place] 1.015 Urine Protein Negative Urine Glucose (UA) Negative Urine Ketones Trace Urine Blood Negative Urine Nitrite Negative Ur Leukocyte Esterase Negative Urine Opiates Screen Urine Fentanyl Screen Ur Barbiturates Screen Ur Phencyclidine Scrn Ur Amphetamines Screen U Benzodiazepines Scrn Urine Cocaine Screen U Marijuana (THC) Screen COVID-19 ([facility]) Negative COVID-19 Clin Com See Note 10/15/23 10/16/23 20:20 05:42 WBC RBC Hgb Hct MCV MCH MCHC RDW Plt Count MPV Immature Gran % (Auto) Neut % (Auto) Lymph % (Auto) Burke % (Auto) Eos % (Auto) Baso % (Auto) Lymph # (Auto) Burke # (Auto) Eos # (Auto) Baso # (Auto) Abs Immat Gran (auto) Absolute Neuts (auto) Absolute Nucleated RBC Nucleated RBC % (auto) PT INR APTT Sodium Potassium Chloride Carbon Dioxide Anion Gap BUN Creatinine Estim Creat Clear Calc Estimated GFR Random Glucose Lactic Acid 0.9 Calcium Magnesium Total Bilirubin AST ALT Alkaline Phosphatase Total Protein Albumin Urine Color Urine Appearance Urine pH Ur Specific [place] Urine Protein Urine Glucose (UA) Urine Ketones Urine Blood Urine Nitrite Ur Leukocyte Esterase Urine Opiates Screen POSITIVE H Urine Fentanyl Screen Not Detected Ur Barbiturates Screen Not Detected Ur Phencyclidine Scrn Not Detected Ur Amphetamines Screen Not Detected U Benzodiazepines Scrn Not Detected Urine Cocaine Screen Not Detected U Marijuana (THC) Screen Not Detected COVID-19 ([facility]) COVID-19 Clin Com Imaging Radiologist's impression: Impressions Chest X-Ray 10/15/23 18:45 IMPRESSION: New airspace opacities in the left lung with associated volume loss, leftward mediastinal shifting and a small left-sided pleural effusion suspicious for aspiration/pneumonia as well as some degree of atelectasis in view of the volume loss and mediastinal shift. 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 Further evaluation with CT chest with IV contrast could be obtained as clinically warranted. Pelvis X-Ray 10/15/23 18:45 IMPRESSION: 1. Total left-sided hip arthroplasty without evidence of hardware fracture or complication. 2. No acute fractures or subluxation. Head CT 10/15/23 22:03 IMPRESSION: No acute findings. Mild generalized atrophy and nonspecific periventricular white matter disease. Left maxillary sinus disease. Hip/Pelvis X-Ray 10/15/23 23:10 IMPRESSION: Left total hip prosthesis demonstrating new acetabular protrusio left hip since 2019 Knee X-Ray 10/15/23 23:10 IMPRESSION: 1. No acute abnormality of the knee. 2. Postsurgical changes of proximal tibia. 3. Osteopenia. Assessment and Plan (1) Atrial fibrillation, new onset: Status: Acute Plan 68-year-old female presenting for aspiration pneumonia and atrial fibrillation. She has reverted back to sinus rhythm at this point. She is on broad-spectrum antibiotics. Recommend starting on metoprolol 25 mg twice a day. She is quite frail and has kidney disease and also is underweight. I think it is reasonable to leave her on 2.5 mg of apixaban as before and not increase the dose to 5 mg twice a day. Watch for aspiration. Consider cutting back on the narcotic patch and oxycodone. Thank you for allowing me to participate in the care of your patient. Please feel free to contact me if you have any questions. Procedures Date of Service Date of Service: 10/16/23
[2023-10-16] MEDS: oxyCODONE HCl Immed Release 5 MG TABLET PO (13:03)
[2023-10-16 14:13] LABS: ABG Base Excess 0.8 mmol/L; ABG HCO3 25 mmol/L (22-26); ABG pCO2 40 mmHg (32-45); ABG pO2 72 mmHg (83-108)
[2023-10-16] MEDS: Dextrose 5 % and Lactated Ring 1,000 ML 100 ML IVCONT ×2 (14:24→23:35)
[2023-10-16 16:10] LABS: ABG Refer to POC result
[2023-10-16] MEDS: Acetaminophen 325 MG TABLET 650 MG PO (17:56)
[2023-10-16] MEDS: Metoprolol Tartrate 12.5 MG HALFTAB PO (20:22)
[2023-10-16] MEDS: oxyCODONE HCl Immed Release 5 MG TABLET 2.5 MG PO (20:22)
[2023-10-16] MEDS: LORazepam 0.5 MG TABLET PO (23:39)
[2023-10-17 03:43] VITALS: BP 140/63; PULSE 62; RESP 19; TEMP 36.2; O2SAT 97
[2023-10-17] MEDS: Levothyroxine Sodium 50 MCG TABLET PO (05:44)
[2023-10-17] MEDS: Omeprazole 20 MG CAPSULE.DR PO (05:44)
[2023-10-17 06:30] LABS: Hematocrit 28.7 % (37.0-47.0); Hemoglobin 8.6 g/dl (12.0-16.0); Mean Corpuscular Hemoglobin 24.7 pg (27.0-33.0); Mean Corpuscular Volume 82.5 fL (80.0-98.0); Mean Platelet Volume 11.4 fL (9.4-12.3); NRBC Pct Auto 0.6 /100WBC (0.0-0.2); Platelet Count 524 X10*3/uL (160-400); Red Blood Count 3.48 X10*6/uL (4.20-5.50); Red Cell Distribution Width 18.6 % (11.0-16.0); White Blood Count 11.3 X10*3/uL (4.8-10.8)
[2023-10-17 06:54] LABS: Alanine Aminotransferase 29 U/L (0-31); Albumin Level 2.9 g/dL (3.5-5.0); Alkaline Phosphatase 135 U/L (39-117); Anion Gap 14 (12-20); Aspartate Amino Transferase 51 U/L (5-31); Bilirubin Direct 0.2 mg/dL (0.0-0.5); Bilirubin Total 0.3 mg/dL (0.0-1.0); Blood Urea Nitrogen 9 mg/dL (9-16); Calcium 8.7 mg/dL (8.4-10.2); Carbon Dioxide 25 mmol/L (22-29); Chloride 103 mmol/L (96-108); Creatinine Clr Calc Pharmacy 45.2; Estimated Glomerular Filt Rate > 60; Glucose Random 106 mg/dL (60-115); Potassium 3.6 mmol/L (3.3-5.1); Sodium 138 mmol/L (135-145)
[2023-10-17 07:07] LABS: Thyroid Stimulating Hormone 5.57 uIU/mL (0.32-4.0)
--- NOTE | 2023-10-17 07:43 | PC.NURSE ---
Assumed care of patient at 19:15 (10/16). Pt is A&Ox1-2 to self, intermittently to place, with +visual hallucinations. Pt confused and difficult to redirect and reorient, frequently removing her nc causing her to desat to the low 80's despite in-room camera in place. MD and nursing supervisor mill notified, constant research attorney assigned to bedside to assist with patient impulsivity/line integrity and pt redirection. 1x po ativan also given for anxiety per MD. Pt later expressed SI statements, though denied any plan to this mortgage underwriter. Covering Dr. Jv Wright notified as well as nursing supervisor mill. MD orders placed for constant research attorney that remained in the pt's room for duration of mortgage underwriter's care; CM and psych consults placed. Pt remained very calm and talkative with constant research attorney present. Patient resting in bed appearing comfortable and in no apparent distress. See shift assessments and EMAR for full details. Handoff report given 06:45.
[2023-10-17 07:55] VITALS: BP 131/60; PULSE 65; RESP 19; TEMP 36.6; O2SAT 98
--- NOTE | 2023-10-17 09:25 | P.CDIM_ITS ---
PROVIDER RESPONSE TEXT: To clarify, the appropriate diagnosis supported by the clinical indicators: Other (explain): bmi 21.8 please recheck QUERY TEXT: PHYSICIAN'S DOCUMENTATION REQUEST Date of Query: 10/16/2023 12:31 PM EST Patient Name: Annalise Young Admit Date: 10/16/2023 Dear Melly So, A review of the medical record indicates additional documentation may be needed. Please review below and update the documentation accordingly. Clinical Indicators: BMI: 16.4 5ft 3in 42kg ED: patient declining in health, not eating or drinking for a few days. H&P: Poor PO intake, weakness, dehydration, patient has been deteriorating since her discharge. If possible, please provide an associated diagnosis related to the abnormal BMI, such as: Underweight Weight loss Cachexia Anorexia malnutrition mild, moderate, severe Other (explain) Clinically unable to determine (explain) Thank you, Gloria Carter, CCS, CDIS Use of terms such as suspected, likely, concern for, or probable (associated with a specific diagnosi s that is being evaluated, monitored, or treated as if it exists) are acceptable and can be coded in the inpatient se tting, when documented at the time of discharge. Please use your independent medical judgment in providing your response. THIS QUERY IS PART OF THE PERMANENT MEDICAL RECORD
--- NOTE | 2023-10-17 09:45 | MHC.CM.PN ---
EMR REVIEWED, CM MET W/PT AND S.O., PT MORE A&O TODAY HOWEVER S.O. DID CLARIFY/ANSWER AT TIMES THROUGHOUT ASSESSMENT, PT LIVES W/SIGNIFICANT OTHER YURIDIA, PT HAS A FWW AND ROLATER AT HOME, NO DME AND YURIDIA ASSISTS PT WITH ANY NEEDS. PT'S GOAL FOR DC IS HOME HOWEVER WILL NEED CARE TEAM SHE HAD MADE SI STATEMENTS LAST NIGHT AND NOW HAS A SITTER AT BEDSIDE. PT VERIFIES PCP IS YAHIR VALENTINE, HCP ON FILE VERIFIED AND YURIDIA REPORTS PT COVID VACC'D X4.
[2023-10-17] MEDS: Magnesium Oxide 400 MG TABLET PO ×2 (09:47→20:17)
[2023-10-17] MEDS: Venlafaxine HCl ER 37.5 MG CAP.ER.24H PO (09:47)
[2023-10-17] MEDS: Cholecalciferol (Vitamin D3) 25 MCG TABLET 50 MCG PO (09:47)
[2023-10-17] MEDS: Apixaban 2.5 MG TABLET PO ×2 (09:47→20:17)
[2023-10-17] MEDS: Metoprolol Tartrate 12.5 MG HALFTAB PO ×2 (09:47→20:17)
[2023-10-17] MEDS: amLODIPine Besylate 5 MG TABLET PO (09:47)
[2023-10-17] MEDS: Ezetimibe 10 MG TABLET PO (09:47)
[2023-10-17 10:18] LABS: T4 Thyroxine 7.9 ug/dL (4.5-12.0)
--- NOTE | 2023-10-17 10:38 | MHC.CM.PN ---
CM MET W/PT'S S.O./HCP LOW OUTSIDE OF ROOM PT WAS RECEIVING CARE, LOW REPORTS THAT PT WOULD PREFER HOME SERVICES AND NOT STR FOR HIP REPLACEMENT FROM 10/03, PT EVAL PENDING AND NO PREFERENCE ON [facility], LOW WILL BRING IN PT'S [employer] INSURANCE CARD.
--- NOTE | 2023-10-17 11:17 | HO.PM.IMPN ---
Subjective Subjective Date of Service: 10/17/23 <Aimee Coleylanie - Last Filed: 10/17/23 13:56> 10/17/23 <Melly So MD - Last Filed: 10/17/23 16:12> Interval History: Patient being followed for metabolic encephalopathy, aspiration pneumonia, and new onset AFIB with RVR. She is much improved today sitting up in bed, eating, and communicative. She denies fever, chills, nausea/vomiting, shortness of breath, chest pain, palpitations, light-headedness. <Aimee Matta - Last Filed: 10/17/23 13:56> Review of Systems Review of Systems: Yes all other systems are reviewed and are negative <Aimee Matta - Last Filed: 10/17/23 13:56> Physical Exam Vital Signs: Vital Signs: Last Vital Signs Temp 97.8 F 10/17/23 07:55 Pulse 65 10/17/23 07:55 Resp 19 10/17/23 07:55 BP 131/60 10/17/23 07:55 Pulse Ox 98 10/17/23 07:55 O2 Del Method Nasal Cannula 10/17/23 07:55 O2 Flow Rate 6 10/17/23 07:55 BMI result Body Mass Index 21.8 <Aimee Matta - Last Filed: 10/17/23 13:56> Const: Other: Gen: Awake and communicative resting comfortably in bed. A&O x 2 and confused. Lungs: not tachypneic, clear to auscultation bilaterally with no rhonchi, wheezing, rales. No accessory muscle use Heart: regular rate and rhythm, no murmurs; pulses 2+ throughout Abd: soft, non-tender, non-distended Ext: no edema Skin: warm/well-perfused Neuro: alert and oriented x2, no focal findings Psych: appropriate affect <Aimee Matta - Last Filed: 10/17/23 13:56> Other: Gen: Awake and communicative resting comfortably in bed. A&O x 2 and confused. neck no jvd Lungs: not tachypneic, clear to auscultation bilaterally with no rhonchi, wheezing, rales. No accessory muscle use Heart: regular rate and rhythm, no murmurs; pulses 2+ throughout Abd: soft, non-tender, non-distended Ext: no edema Skin: warm/well-perfused Neuro: alert and oriented x2, no focal findings Psych: appropriate affect <Melly So MD - Last Filed: 10/17/23 16:12> Objective Data Active Medications Acetaminophen (Acetaminophen 325 Mg Tablet) 650 mg PO Q6H PRN PRN Reason: Pain, Mild (Pain Scale 1-3) Last Admin: 10/16/23 17:56 Dose: 650 mg Documented By: JULIANNA Amlodipine Besylate (Amlodipine Besylate 5 Mg Tablet) 5 mg PO DAILY [facility]; Protocol Last Admin: 10/17/23 09:47 Dose: 5 mg Documented By: HAILE Apixaban (Apixaban 2.5 Mg Tablet) 2.5 mg PO BID [facility] Last Admin: 10/17/23 09:47 Dose: 2.5 mg Documented By: HAILE Cefuroxime Axetil (Cefuroxime Axetil 500 Mg Tablet) 500 mg PO Q12H [facility] Docusate Sodium (Docusate Sodium 100 Mg Capsule) 100 mg PO BID PRN PRN Reason: constipation Ezetimibe (Ezetimibe 10 Mg Tablet) 10 mg PO DAILY [facility] Last Admin: 10/17/23 09:47 Dose: 10 mg Documented By: HAILE Levothyroxine Sodium (Levothyroxine Sodium 50 Mcg Tablet) 50 mcg PO DAILY@0600 [facility] Last Admin: 10/17/23 05:44 Dose: 50 mcg Documented By: MAIA Magnesium Oxide (Magnesium Oxide 400 Mg Tablet) 400 mg PO BID [facility] Last Admin: 10/17/23 09:47 Dose: 400 mg Documented By: HAILE Metoprolol Tartrate (Metoprolol Tartrate 12.5 Mg Halftab) 12.5 mg PO BID [facility]; Protocol Last Admin: 10/17/23 09:47 Dose: 12.5 mg Documented By: HAILE Non-Formulary Medication (Buprenorphine) 1 patch [facility] Omeprazole (Omeprazole 20 Mg Capsule.) 20 mg PO DAILY@0630 [facility] Last Admin: 10/17/23 05:44 Dose: 20 mg Documented By: MAIA Ondansetron HCl (Ondansetron Hcl 4 Mg/2 Ml Vial) 4 mg IVPUSH Q8H PRN PRN Reason: Nausea and Vomiting Oxycodone HCl (Oxycodone Hcl Immed Release 5 Mg Tablet) 2.5 mg PO Q6H PRN PRN Reason: Severe Pain (Scale Score 7-10) Last Admin: 10/16/23 20:22 Dose: 2.5 mg Documented By: MAIA Sodium Chloride (0.9 % Sodium Chloride Flush 3 Ml Syringe) 3 ml IVFLUSH QSHIFT [facility] Last Admin: 10/17/23 09:30 Dose: Not Given Documented By: HAILE Non-Admin Reason: IV Running Venlafaxine HCl (Venlafaxine Hcl Er 37.5 Mg Cap.Er.24h) 37.5 mg PO DAILY [facility] Last Admin: 10/17/23 09:47 Dose: 37.5 mg Documented By: HAILE Vitamin D (Cholecalciferol (Vitamin D3) 25 Mcg Tablet) 50 mcg PO DAILY [facility] Last Admin: 10/17/23 09:47 Dose: 50 mcg Documented By: HAILE <Aimee Matta - Last Filed: 10/17/23 13:56> Labs CBC & Chem 7: 10/17/23 06:06 10/17/23 06:06 <Aimee Matta - Last Filed: 10/17/23 13:56> Labs: Laboratory Results - last 24 hr 10/16/23 10/17/23 14:07 06:06 MCV 82.5 MCH 24.7 L MCHC 30.0 L RDW 18.6 H Plt Count 524 H MPV 11.4 Absolute Nucleated RBC 0.070 H Nucleated RBC % (auto) 0.6 H O2 Saturation 95.0 ABG pH at Pt Temp 7.40 ABG pCO2 at Pt Temp 40 ABG pO2 at Pt Temp 72 L ABG HCO3 25 ABG Base Excess (Actual) 0.8 Anion Gap 14 Estim Creat Clear Calc 45.2 Estimated GFR > 60 Random Glucose 106 Calcium 8.7 Total Bilirubin 0.3 Direct Bilirubin 0.2 AST 51 H ALT 29 Alkaline Phosphatase 135 H Total Protein 6.0 L Albumin 2.9 L TSH 5.57 H Thyroxine (T4) 7.9 <Aimee Matta - Last Filed: 10/17/23 13:56> Microbiology Microbiology Results: Microbiology 10/15/23 20:31 Blood Culture - Preliminary Blood - Venous No growth after 24 hours. 10/15/23 20:31 Blood Culture - Preliminary Blood - Venous No growth after 24 hours. <Aimee Matta - Last Filed: 10/17/23 13:56> Assessment and Plan (1) Acute metabolic encephalopathy: Status: Acute <Aimee Matta - Last Filed: 10/17/23 13:56> (2) Atrial fibrillation, new onset: Status: Acute <Aimee Matta - Last Filed: 10/17/23 13:56> (3) Acute hypoxemic respiratory failure: Status: Acute <Aimee Matta - Last Filed: 10/17/23 13:56> Assessment and Plan: 68-year-old female with history of HTN, PAD on Eliquis, AAA, history cocaine abuse in remission, CKD stage 3, history TIA, former smoker, with recent admission to [facility] for a left hip fracture s/p left RENETTA (10/03) with discharge on 10/08- declined skilled - was admitted for management of aspiration pneumonia with acute hypoxemic respiratory failure and acute metabolic encephalopathy. As patient was on multiple sedating medications, on 10/16/23 discontinued tramadol and zolpidem. Oxycodone was decreased to 2.5 Q6hrs; buprenorphine patch was not adjusted. Acute toxic metabolic encephalopathy: - Patient disposition much improved after decreasing narcotics - BMP within normal limits - Continue to monitor mentation Acute aspiration pneumonia with acute hypoxemic respiratory failure: - Blood cultures resulted: negative, WBC imrpoved to 11.3 from 16.1 - Will discontinue IV cefepime and begin Augmentin 875mg PO BID. - ABG 10/16/23 within normal limits; SPO2 at 93% on room air - Continue incentive spirometry New onset atrial fibrillation with RVR: - Sinus rhythm today with occasional PAC, continue to monitor on telemetry - Continue Eliquis 2.5mg bid for anticoagulation and metoprolol 12.5 BID for rate - Echocardiogram showed EF of 65-70%, LV/RV function normal. - TSH elevated with T4 in normal range; subclinical hypothyroidism and patient is asymptomatic SI: - Pt expressed SI on evening of 10/16/23; continue one-on-one observation - CARE team to evaluate Left hip fracture s/p RENETTA 10/03 - Pain well controlled with tylenol and lower dose of oxycodone - PT recommending short term rehab upon discharge. Poor PO intake/deconditioning - Ensure supplements - PT following CKD stage 3: -Follow BMP Hypertension -Continue amlodipine HLD: -Continue home ezetimibe GERD: -Continue home omeprazole Hypothyroidism: - TSH/T4 as above - Continue current dose of levothyroxine and follow up on outpatient basis. Mood disorder: - Continue home venlafaxine PAD -Continue Eliquis DVT prophylaxis-Eliquis Full code Inpatient care required for management of acute aspiration pneumonia with acute hypoxemic respiratory failure and metabolic encephalopathy requiring IV antibiotics, supplemental O2, and close monitoring of mental status. <Aimee Matta - Last Filed: 10/17/23 13:56> 68-year-old female with history of HTN, PAD on Eliquis, AAA, history cocaine abuse in remission, CKD stage 3, history TIA, former smoker, with recent admission to [facility] for a left hip fracture s/p left RENETTA (10/03) with discharge on 10/08- declined skilled - was admitted for management of aspiration pneumonia with acute hypoxemic respiratory failure and acute metabolic encephalopathy. As patient was on multiple sedating medications, on 10/16/23 discontinued tramadol and zolpidem. Oxycodone was decreased to 2.5 Q6hrs; buprenorphine patch was not adjusted. Acute toxic metabolic encephalopathy: - mentation much improved after decreasing narcotics - BMP within normal limits - Continue to monitor mentation Acute aspiration pneumonia with acute hypoxemic respiratory failure: - Blood cultures resulted: negative, WBC imrpoved to 11.3 from 16.1 - Will discontinue IV cefepime and begin ceftin 500mg PO BID. - ABG 10/16/23 within normal limits; SPO2 at 93% on room air - Continue incentive spirometry New onset atrial fibrillation with RVR: - Sinus rhythm today with occasional PAC, continue to monitor on telemetry - Continue Eliquis 2.5mg bid for anticoagulation and metoprolol 12.5 BID for rate - Echocardiogram showed EF of 65-70%, LV/RV function normal. - TSH elevated with T4 in normal range; subclinical hypothyroidism and patient is asymptomatic SI: - Pt expressed SI on evening of 10/16/23; continue one-on-one observation - CARE team to evaluate Chronic normocytic anemia follow H&H Left hip fracture s/p RENETTA 10/03 - Pain well controlled with tylenol and lower dose of oxycodone - PT recommending short term rehab upon discharge. Poor PO intake/deconditioning - Ensure supplements - PT following CKD stage 3: -Follow BMP Hypertension -Continue amlodipine HLD: -Continue home ezetimibe GERD: -Continue home omeprazole Hypothyroidism: - TSH/T4 as above - Continue current dose of levothyroxine and follow up on outpatient basis. Mood disorder: - Continue home venlafaxine PAD -Continue Eliquis DVT prophylaxis-Eliquis Full code Inpatient care required for management of acute aspiration pneumonia with acute hypoxemic respiratory failure and metabolic encephalopathy requiring IV antibiotics, supplemental O2, and close monitoring of mental status. <Melly So MD - Last Filed: 10/17/23 16:12> Quality Stroke Does the patient have a stroke diagnosis?: No <Aimee Matta - Last Filed: 10/17/23 13:56> VTE Prior VTE?: No <Aimee Matta - Last Filed: 10/17/23 13:56> VTE Risk Level:: Medical - moderate - high <Aimee Matta - Last Filed: 10/17/23 13:56> VTE Device Contraindication: Treatment Not Indicated <Aimee Matta - Last Filed: 10/17/23 13:56> VTE Drug Contraindication: N/A - Med Ordered <Aimee Matta - Last Filed: 10/17/23 13:56>
[2023-10-17 11:29] VITALS: BP 118/57; PULSE 56; RESP 20; TEMP 36.1; O2SAT 93
[2023-10-17] MEDS: cefuroxime axetiL 500 MG TABLET PO ×2 (11:32→22:19)
[2023-10-17] MEDS: oxyCODONE HCl Immed Release 5 MG TABLET 2.5 MG PO (14:15)
--- NOTE | 2023-10-17 14:15 | MHC.SLORD ---
Speech Language Pathology Order Status: Attempted to see patient at lunch, per patient and sitter, patient had taken a couple bites before LUBRICATING ENGINEER arrived, but wanted no more. Patient c/o ate oatmeal at breakfast, not hungry for more food Patient was encouraged to try nutritional shake which came with meal, but patient refused, c/o not liking it, also too sweet, I can't have sweets LUBRICATING ENGINEER noted it has only 1 g sugar, patient still refused. LUBRICATING ENGINEER will continue to follow.
[2023-10-17 15:28] VITALS: BP 131/60; PULSE 68; RESP 19; TEMP 36.4; O2SAT 92
[2023-10-17] MEDS: 0.9 % Sodium Chloride Flush 3 ML SYRINGE IVFLUSH (16:19)
[2023-10-17 19:51] VITALS: BP 130/60; PULSE 72; RESP 20; TEMP 35.9; O2SAT 94
[2023-10-17 23:37] VITALS: BP 153/64; PULSE 75; RESP 16; TEMP 36.9; O2SAT 92
[2023-10-18] VITALS (9 sets, daily range): BP systolic 94–138; BP diastolic 44–66; PULSE 53–95; RESP 15–20; TEMP 36.1–36.4; O2SAT 92–95
[2023-10-18] MEDS: 0.9 % Sodium Chloride Flush 3 ML SYRINGE IVFLUSH ×4 (00:20→22:44)
[2023-10-18] MEDS: Haloperidol Lactate 5 MG/ML VIAL 2.5 MG IM (00:31)
--- NOTE | 2023-10-18 01:59 | PC.NURSE ---
pt was very agitated, getting combative with staff, pulling off case monitor and trying to pull out em. tiger text sent to Dr. Carias, 2.5 mg of IM Haldol ordered and administered. pt responded well, calm now and sleeping but easily aroused, and I was able to put the case monitor back on.
[2023-10-18] MEDS: oxyCODONE HCl Immed Release 5 MG TABLET 2.5 MG PO (05:22)
[2023-10-18] MEDS: Omeprazole 20 MG CAPSULE.DR PO (05:22)
[2023-10-18] MEDS: Levothyroxine Sodium 50 MCG TABLET PO (05:23)
[2023-10-18 07:39] LABS: Hematocrit 24.8 % (37.0-47.0); Hemoglobin 7.5 g/dl (12.0-16.0); Mean Corpuscular HGB Conc 30.2 g/dl (31.0-35.0); Mean Corpuscular Hemoglobin 24.8 pg (27.0-33.0); Mean Corpuscular Volume 81.8 fL (80.0-98.0); Mean Platelet Volume 11.4 fL (9.4-12.3); NRBC Pct Auto 0.2 /100WBC (0.0-0.2); Platelet Count 579 X10*3/uL (160-400); Red Blood Count 3.03 X10*6/uL (4.20-5.50); Red Cell Distribution Width 18.6 % (11.0-16.0); White Blood Count 11.5 X10*3/uL (4.8-10.8)
[2023-10-18] MEDS: Acetaminophen 325 MG TABLET 650 MG PO (08:32)
[2023-10-18] MEDS: Metoprolol Tartrate 12.5 MG HALFTAB PO ×2 (08:32→22:44)
[2023-10-18] MEDS: amLODIPine Besylate 5 MG TABLET PO (08:33)
[2023-10-18] MEDS: Magnesium Oxide 400 MG TABLET PO ×2 (08:33→22:44)
[2023-10-18] MEDS: Apixaban 2.5 MG TABLET PO (08:33)
[2023-10-18] MEDS: Cholecalciferol (Vitamin D3) 25 MCG TABLET 50 MCG PO (08:33)
[2023-10-18] MEDS: Venlafaxine HCl ER 37.5 MG CAP.ER.24H PO (08:33)
[2023-10-18] MEDS: Ezetimibe 10 MG TABLET PO (08:34)
[2023-10-18 09:26] LABS: Iron 20 mcg/dL (30-160); Percent Iron Saturation 9 % (15-50); Total Iron Binding Capacity 220 mcg/dL (228-428); Unsaturated Iron Binding 200 ug/dL
--- NOTE | 2023-10-18 09:33 | MHC.CM.PN ---
Addendum entered by Tatum Tai RN 10/18/23 09:37: IMM 10/18/23 DELIVERED TO BEDSIDE. Original Note: PT REQUESTING TO DC TODAY, PT'S ON BOARD AND AWARE [facility] WILL PROVIDE SERVICES FOR PT, PER HOSPITALIST PT MAY NEED BLOOD TRANSFUSION AND REPEAT LABS, PT AND UPDATED AND AWARE SHE MAY STILL BE ABLE TO DC TODAY HOWEVER IT WOULD BE LATER THIS AFTERNOON, CM WILL CONT TO FOLLOW.
[2023-10-18 09:40] LABS: Ferritin 91 ng/mL (10-250)
[2023-10-18 11:06] LABS: Folate 4.9 ng/mL (> or = 4.0); Vitamin B12 543 pg/mL (200-900)
--- NOTE | 2023-10-18 11:24 | MHC.CM.PN ---
Addendum entered by Tatum Tai RN 10/18/23 14:25: CM RECEIVED ANOTHER MESSAGE FROM [facility] WHO REPORT THEY NOW DO NOT HAVE A BED FOR PT, CM WILL EXPAND REF TO [facility]. Addendum entered by Tatum Tai RN 10/18/23 14:18: [facility] OFFERING AND CM HAS REQUESTED THEY GO FOR INSURANCE AUTH PT WILL BE CLEARED IN AM PER HSOPITALIST. Original Note: EMR REVIEWED, PT NOW IN AGREEMENT FOR STR SHE WANTS TO GET BACK ON HER FEET AND WALK INDEPENDENTLY, PT WOULD LIKE A [facility] HOWEVER DOES NOT WANT [facility], CM WILL UPDATE REFERRAL AND FOLLOW FOR BED OFFERS.
--- NOTE | 2023-10-18 11:58 | MHC.SL.SWA ---
Speech Pathologist Impression: Oral phase dysphagia Risk of Aspiration Due to: History of Pneumonia Poor PO Intake Reduced Cognition Dysphasia Diet Status: No changes at this time Liquid Consistency and Strategies for Safe Swallow: Liquid Intake Recommendation: Thin Liquid Intake Strategies: Small Sips Solid Food Consistency: Dietary Recommendations: Grnd/Mech Altered (NDD2) Additional Modifications to Solid Foods: Moistened in sauce/gravy Oral Medication Intake: Crushed with Puree Please contact the pharmacy regarding appropriate crushable or liquid drug formulations that are available whenever modified delivery is recommended. Compensatory Strategies and Precautions to be Taken for Safe Swallow: Sitting Upright (90 deg) Double Swallow Small Bites and Sips Rate of Ingestion Change Oral Check Avoid Specific Foods Supervision While Eating and Drinking for Safe Swallow: Total Assistance (1:1) Foods to Avoid: Hard, dry, or crunchy solids Swallowing Recommended Treatments: Compens. Strategy Educat. Recommendation for Speech: Inpatient Speech Therapy Tram Driver Clinican/Clinical Fellow: No Supervisory Statement: I have reviewed and agree with the student/clinical fellow's documentation: N/A Speech Language Pathologist: Sarah Marmolejo M.A., CCC-DAMAGE APPRAISER
[2023-10-18] MEDS: cefuroxime axetiL 500 MG TABLET PO ×2 (12:09→22:48)
--- NOTE | 2023-10-18 13:58 | HO.PM.IMPN ---
Subjective Subjective Date of Service: 10/18/23 Interval History: Feeling better this morning offers no acute complaints, denies hematemesis, no melena, patient is not aware of cause of anemia, no lightheadedness, no dizziness. Review of Systems All other system reviewed and negative. Physical Exam Vital Signs: Vital Signs: Last Vital Signs Temp 96.9 F 10/18/23 12:21 Pulse 53 10/18/23 12:21 Resp 16 10/18/23 12:21 BP 94/44 L 10/18/23 12:21 Pulse Ox 92 10/18/23 11:28 O2 Del Method Room Air 10/18/23 11:28 O2 Flow Rate 6 10/17/23 07:55 BMI result Body Mass Index 21.8 Const: Other: Gen: Awake and communicative resting comfortably in bed. A&O x 3, at times forgetful. neck no jvd Lungs: clear to auscultation bilaterally with no rhonchi, wheezing, rales. No accessory muscle use Heart: regular rate and rhythm, no murmurs; pulses 2+ throughout Abd: soft, non-tender, non-distended Ext: no edema Skin: warm/pallor Neuro: alert and oriented x2, no focal findings Psych: appropriate affect Objective Data Active Medications Acetaminophen (Acetaminophen 325 Mg Tablet) 650 mg PO Q6H PRN PRN Reason: Pain, Mild (Pain Scale 1-3) Last Admin: 10/18/23 08:32 Dose: 650 mg Documented By: DEWEY Amlodipine Besylate (Amlodipine Besylate 5 Mg Tablet) 5 mg PO DAILY [facility]; Protocol Last Admin: 10/18/23 08:33 Dose: 5 mg Documented By: DEWEY Apixaban (Apixaban 2.5 Mg Tablet) 2.5 mg PO BID [facility] Last Admin: 10/18/23 08:33 Dose: 2.5 mg Documented By: DEWEY Cefuroxime Axetil (Cefuroxime Axetil 500 Mg Tablet) 500 mg PO Q12H [facility] Last Admin: 10/18/23 12:09 Dose: 500 mg Documented By: DEWEY Docusate Sodium (Docusate Sodium 100 Mg Capsule) 100 mg PO BID PRN PRN Reason: constipation Ezetimibe (Ezetimibe 10 Mg Tablet) 10 mg PO DAILY [facility] Last Admin: 10/18/23 08:34 Dose: 10 mg Documented By: DEWEY Levothyroxine Sodium (Levothyroxine Sodium 50 Mcg Tablet) 50 mcg PO DAILY@0600 [facility] Last Admin: 10/18/23 05:23 Dose: 50 mcg Documented By: REBECA Magnesium Oxide (Magnesium Oxide 400 Mg Tablet) 400 mg PO BID [facility] Last Admin: 10/18/23 08:33 Dose: 400 mg Documented By: DEWEY Metoprolol Tartrate (Metoprolol Tartrate 12.5 Mg Halftab) 12.5 mg PO BID [facility]; Protocol Last Admin: 10/18/23 08:32 Dose: 12.5 mg Documented By: DEWEY Non-Formulary Medication (Buprenorphine) 1 patch TRANSDERMA [facility] Omeprazole (Omeprazole 20 Mg Capsule.Dr) 20 mg PO DAILY@0630 [facility] Last Admin: 10/18/23 05:22 Dose: 20 mg Documented By: REBECA Ondansetron HCl (Ondansetron Hcl 4 Mg/2 Ml Vial) 4 mg IVPUSH Q8H PRN PRN Reason: Nausea and Vomiting Oxycodone HCl (Oxycodone Hcl Immed Release 5 Mg Tablet) 2.5 mg PO Q6H PRN PRN Reason: Severe Pain (Scale Score 7-10) Last Admin: 10/18/23 05:22 Dose: 2.5 mg Documented By: REBECA Sodium Chloride (0.9 % Sodium Chloride Flush 3 Ml Syringe) 3 ml IVFLUSH QSHIFT [facility] Last Admin: 10/18/23 08:34 Dose: 3 ml Documented By: DEWEY Venlafaxine HCl (Venlafaxine Hcl Er 37.5 Mg Cap.Er.24h) 37.5 mg PO DAILY [facility] Last Admin: 10/18/23 08:33 Dose: 37.5 mg Documented By: DEWEY Vitamin D (Cholecalciferol (Vitamin D3) 25 Mcg Tablet) 50 mcg PO DAILY [facility] Last Admin: 10/18/23 08:33 Dose: 50 mcg Documented By: DEWEY Labs 10/18/23 07:02 10/17/23 06:06 Labs: Laboratory Results - last 24 hr 10/18/23 10/18/23 07:02 09:44 MCV 81.8 MCH 24.8 L MCHC 30.2 L RDW 18.6 H Plt Count 579 H MPV 11.4 Absolute Nucleated RBC 0.020 H Nucleated RBC % (auto) 0.2 Iron 20 L TIBC 220 L % Saturation 9 L Unsat Iron Binding 200 Ferritin 91 Vitamin B12 543 Folate 4.9 Blood Type O Positive Antibody Screen NEGATIVE Crossmatch See Detail Microbiology Microbiology Results: Microbiology 10/15/23 20:31 Blood Culture - Preliminary Blood - Venous No growth after 48 hours. 10/15/23 20:31 Blood Culture - Preliminary Blood - Venous No growth after 48 hours. Assessment and Plan (1) Atrial fibrillation, new onset: Status: Acute (2) Acute metabolic encephalopathy: Status: Acute Plan 68-year-old female with history of HTN, PAD on Eliquis, AAA, history cocaine abuse in remission, CKD stage 3, history TIA, former smoker, with recent admission to [facility] for a left hip fracture s/p left RENETTA (10/03) with discharge on 10/08- declined skilled - was admitted for management of aspiration pneumonia with acute hypoxemic respiratory failure and acute metabolic encephalopathy. As patient was on multiple sedating medications, on 10/16/23 discontinued tramadol and zolpidem. Oxycodone was decreased to 2.5 Q6hrs; buprenorphine patch was not adjusted. Acute toxic metabolic encephalopathy: - mentation much improved after decreasing narcotics, treating infection But forgetful, likely baseline BMP within normal limits Continue to monitor mentation Acute on Chronic normocytic anemia No active bleeding noted hematocrit dropped to 24.8, patient on Eliquis for peripheral arterial disease, recent left hip fracture and now atrial fibrillation Low iron saturation, likely due to poor nutrition, normal B12 and folate Looked into [facility] record patient did have low hb/hematocrit Will give 1 unit of packed RBC, hold Eliquis today, stool guaiac ordered consult GI Acute aspiration pneumonia with acute hypoxemic respiratory failure: - Blood cultures negative, WBC imrpoved to 11.3 from 16.1 - s/p IV cefepime now on ceftin 500mg PO BID day2 . - ABG 10/16/23 within normal limits; SPO2 at 93% on room air - Continue incentive spirometry New onset atrial fibrillation with RVR: - now in Sinus rhythm with occasional PAC, continue to monitor on telemetry - on Eliquis 2.5mg bid for anticoagulation and metoprolol 12.5 BID for rate control - Echocardiogram showed EF of 65-70%, LV/RV function normal. - TSH elevated with T4 in normal range; subclinical hypothyroidism and patient is asymptomatic SI: - Pt expressed SI on evening of 10/16/23; seen by care team patient declined suicidal ideation, cleared by care team, will DC sitter Left hip fracture s/p RENETTA 10/03 - Pain well controlled with tylenol and lower dose of oxycodone - PT recommending short term rehab upon discharge. Patient agreed to go to rehab social work program coordinator arranging for safe disposition Poor PO intake/deconditioning - Ensure supplements - PT following CKD stage 3: -Follow BMP Hypertension -Continue amlodipine HLD: -Continue home ezetimibe GERD: -Continue home omeprazole Hypothyroidism: - TSH/T4 as above - Continue current dose of levothyroxine and follow up on outpatient basis. Mood disorder: - Continue home venlafaxine PAD -Continue Eliquis DVT prophylaxis-Eliquis Full code Inpatient care required for management of acute aspiration pneumonia with acute hypoxemic respiratory failure and acute on chronic anemia requiring blood transfusion. Quality Stroke Does the patient have a stroke diagnosis?: No VTE Prior VTE?: No VTE Risk Level:: Medical - moderate - high VTE Device Contraindication: Treatment Not Indicated VTE Drug Contraindication: N/A - Med Ordered
--- NOTE | 2023-10-18 15:34 | PM.GICN ---
History of Present Illness Data of Consult Service Date: 10/18/23 Requesting physician: Melly So Primary Care Provider: John Melendez III, MD HPI Reason for consult: acute on chronic anemia 68 YF with hypertension, peripheral artery disease anticoagulated with Eliquis, AAA, history cocaine abuse in remission, CKD stage 3, history TIA, former smoker, with recent admission to [facility] for a left hip fracture s/p left RENETTA (10/03) admitted to [facility] on 10/15/23 with limited p.o. intake, weakness, dehydration. Pt was discharged from [facility] on 10/08 - was recommended for skilled rehab but declined and was discharged home with services- Per EMS report, the patient has been deteriorating since her discharge from [facility]. The patient is noted to be encephalopathic and unable to provide a meaningful history. And on review of [facility] chart, on discharge, the patient was lucid. She lives at home with her . On arrival, patient tachycardic to 137, vitals otherwise stable. Per ED report, patient was in AFib RVR (new onset) though no EKG is available for review. She was given 2.5mg IV lopressor, 10 mg diltiazem, and 2L IVF with conversion to NSR, rates high 50s. Labs showed leukocytosis of 16.1, possibly hemoconcentrated. H/H 9.0/30.0%, improved since discharge from [facility]. Platelets 604. Renal function baseline though BUN increased to 28, electrolyte levels normal except for mild hyponatremia of 146. Lactic acid 0.9. AST 110, ALT 37. Urinalysis unremarkable. Chest x-ray showed new airspace opacities in the left lung with associated volume loss and leftward mediastinal shifting and a small left-sided pleural effusion suspicious for aspiration/pneumonia as well as atelectasis. XR left pelvis shows total left-sided hip arthroplasty without evidence of hardware fracture or complication and no acute fracture or subluxation. Head CT negative for any acute intracranial abnormality which shows mild generalized atrophy and nonspecific periventricular white matter disease. GI consulted for acute on chronic anemia. Review of Systems Review of Systems: Yes all other systems are reviewed and are negative PMFSH Past Medical History Medical History History of cocaine abuse Former smoker Fracture of left tibial plateau Abdominal aortic aneurysm HTN (hypertension) PAD (peripheral artery disease) Surgical History Surgical History S/P total left hip arthroplasty S/P femoral-femoral bypass surgery Social History Social History Household Members: Significant Other Housing: Apartment Do you presently have visiting nurse or other home services: No Unable to assess alcohol history related to: Refusing to respond Alcohol intake: never Comment: 1:1 sitter Patient Tobacco Use Status: Former Tobacco user Advance Directives Date on File: 06/27/21 service: No Current occupational status: disabled 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 Meds Allergies Allergy/AdvReac Type Severity Reaction Status Date / Time penicillin V Allergy Unknown Unknown Verified 08/02/23 12:53 Penicillins Allergy Unknown UNKNOWN Verified 08/02/23 12:53 lisinopril [LISINOPRIL] AdvReac Intermediate hyperkalemia Verified 08/02/23 12:53 (on multiple re-starts) see 02/09/19 admission adhesive tape AdvReac Redness of Verified 08/02/23 12:53 Skin gabapentin AdvReac Vomiting Verified 08/02/23 12:53 From Thorazine Allergy Severe HIVES Uncoded 08/02/23 12:53 Active Medications: Current Medications Acetaminophen (Acetaminophen 325 Mg Tablet) 650 mg PO Q6H PRN PRN Reason: Pain, Mild (Pain Scale 1-3) Last Admin: 10/18/23 08:32 Dose: 650 mg Amlodipine Besylate (Amlodipine Besylate 5 Mg Tablet) 5 mg PO DAILY [facility]; Protocol Last Admin: 10/18/23 08:33 Dose: 5 mg Apixaban (Apixaban 2.5 Mg Tablet) 2.5 mg PO BID [facility] Last Admin: 10/18/23 08:33 Dose: 2.5 mg Cefuroxime Axetil (Cefuroxime Axetil 500 Mg Tablet) 500 mg PO Q12H [facility] Last Admin: 10/18/23 12:09 Dose: 500 mg Docusate Sodium (Docusate Sodium 100 Mg Capsule) 100 mg PO BID PRN PRN Reason: constipation Ezetimibe (Ezetimibe 10 Mg Tablet) 10 mg PO DAILY [facility] Last Admin: 10/18/23 08:34 Dose: 10 mg Levothyroxine Sodium (Levothyroxine Sodium 50 Mcg Tablet) 50 mcg PO DAILY@0600 [facility] Last Admin: 10/18/23 05:23 Dose: 50 mcg Magnesium Oxide (Magnesium Oxide 400 Mg Tablet) 400 mg PO BID [facility] Last Admin: 10/18/23 08:33 Dose: 400 mg Metoprolol Tartrate (Metoprolol Tartrate 12.5 Mg Halftab) 12.5 mg PO BID [facility]; Protocol Last Admin: 10/18/23 08:32 Dose: 12.5 mg Non-Formulary Medication (Buprenorphine) 1 patch [facility] Omeprazole (Omeprazole 20 Mg Capsule.Dr) 20 mg PO DAILY@0630 [facility] Last Admin: 10/18/23 05:22 Dose: 20 mg Ondansetron HCl (Ondansetron Hcl 4 Mg/2 Ml Vial) 4 mg IVPUSH Q8H PRN PRN Reason: Nausea and Vomiting Oxycodone HCl (Oxycodone Hcl Immed Release 5 Mg Tablet) 2.5 mg PO Q6H PRN PRN Reason: Severe Pain (Scale Score 7-10) Last Admin: 10/18/23 05:22 Dose: 2.5 mg Sodium Chloride (0.9 % Sodium Chloride Flush 3 Ml Syringe) 3 ml IVFLUSH QSHIFT [facility] Last Admin: 10/18/23 15:31 Dose: 3 ml Venlafaxine HCl (Venlafaxine Hcl Er 37.5 Mg Cap.Er.24h) 37.5 mg PO DAILY [facility] Last Admin: 10/18/23 08:33 Dose: 37.5 mg Vitamin D (Cholecalciferol (Vitamin D3) 25 Mcg Tablet) 50 mcg PO DAILY [facility] Last Admin: 10/18/23 08:33 Dose: 50 mcg Home Medications ?Medication ?Instructions ?Recorded ?Confirmed ?Last Taken ?Type cholecalciferol (vitamin D3) 50 50 mcg PO DAILY 06/26/21 10/15/23 08/02/23 History mcg (2,000 unit) tablet (Vitamin D3) levothyroxine 50 mcg tablet 1 tab PO DAILY@0600 06/26/21 10/15/23 08/02/23 History omeprazole 20 mg capsule,delayed 1 cap PO DAILY 06/26/21 10/15/23 08/02/23 History release amlodipine 5 mg tablet 5 mg PO DAILY 08/02/23 10/15/23 08/02/23 History ezetimibe 10 mg tablet 10 mg PO DAILY 08/02/23 10/15/23 08/02/23 History venlafaxine 37.5 mg 37.5 mg PO DAILY 08/02/23 10/15/23 08/02/23 History capsule,extended release 24 hr apixaban 2.5 mg tablet (Eliquis) 2.5 mg PO BID 10/15/23 10/15/23 Unknown History buprenorphine 15 mcg/hour weekly 1 patch transdermal FR 10/15/23 10/15/23 Unknown History transdermal patch docusate sodium 100 mg capsule 100 mg PO BID PRN constipation 10/15/23 10/15/23 Unknown History magnesium oxide 400 mg (241.3 mg 400 mg PO BID 10/15/23 10/15/23 Unknown History magnesium) tablet Physical Exam Vital Signs: Vital Signs: Last Vital Signs Temp 97.2 F 10/18/23 15:31 Pulse 54 10/18/23 15:31 Resp 16 10/18/23 15:31 BP 110/53 L 10/18/23 15:31 Pulse Ox 92 10/18/23 11:28 O2 Del Method Room Air 10/18/23 11:28 O2 Flow Rate 6 10/17/23 07:55 BMI result Body Mass Index 21.8 Const: Other: Gen: Awake and communicative resting comfortably in bed. A&O x 3, at times forgetful. neck no jvd Lungs: clear to auscultation bilaterally with no rhonchi, wheezing, rales. No accessory muscle use Heart: regular rate and rhythm, no murmurs; pulses 2+ throughout Abd: soft, non-tender, non-distended Ext: no edema Skin: warm/pallor Neuro: alert and oriented x2, no focal findings Psych: appropriate affect Results Labs 10/19/23 06:39 10/17/23 06:06 Labs: Short CBC 10/18/23 Range/Units 07:02 WBC 11.5 H (4.8-10.8) X10*3/uL Hgb 7.5 L (12.0-16.0) g/dl Hct 24.8 L (37.0-47.0) % Plt Count 579 H (160-400) X10*3/uL Microbiology Microbiology Results: Microbiology 10/15/23 20:31 Blood - Venous Blood Culture - Preliminary No growth after 48 hours. 10/15/23 20:31 Blood - Venous Blood Culture - Preliminary No growth after 48 hours. Assessment and Plan (1) Anemia: Status: Inactive Plan 68 YF with hypertension, peripheral artery disease anticoagulated with Eliquis, AAA, history cocaine abuse in remission, CKD stage 3, history TIA, former smoker, admitted to [facility] on 10/15/23 with limited p.o. intake, weakness, dehydration. Labs showed leukocytosis of 16.1, possibly hemo-concentrated. H/H 9.0/30.0%, improved since discharge from [facility]. Platelets 604. GI consulted for acute on chronic anemia. Decrease in H & H is partially explained by IV hydration since pt's BUN was 28 on admission. RECOMMENDATIONS: 1. Monitor CBC daily. 2. Check stool for occult blood - negative. 3. Pt needs further evaluation with EGD and colonoscopy for evaluation of dysphagia and intermittent black stools I would advise scheduling as an outpatient after pt recovers from her hip fracture (at present she is unable to lay on her left side for the procedure) Procedures Date of Service Date of Service: 04/05/24
[2023-10-18 17:58] LABS: Appearance Urine Clear; Color Urine Yellow; Glucose Urine UA Negative (Negative); Leukocyte Esterase Urine Trace (Negative); Nitrite Urine Negative (Negative); PH 7.5 (5.0-9.0); Specific Gravity - Urine <= 1.005 (1.005-1.025); UMIC TRIGGER UA YES; Urine Blood Negative (Negative); Urine Ketones Negative (Negative); Urine Protein Negative (Neg-Trace)
[2023-10-18 18:03] LABS: Bacteria Urine None Seen (None Seen); Hyaline Casts Urine 0-2 /LPF (0-2); RBC Urine 0-2 /HPF (0-2); Squamous Epithelial Cell Urine 0-2 /HPF (0-2); WBC Urine 0-5 /HPF (0-5)
--- NOTE | 2023-10-18 23:37 | PC.NURSE ---
pt bladder scanned at 23:30, 250mls post void. pt voided minimal amount of urine will continue to monitor
[2023-10-19 03:18] VITALS: BP 123/60; PULSE 58; RESP 17; TEMP 36.6; O2SAT 95
--- NOTE | 2023-10-19 03:28 | PC.NURSE ---
pt bladder scanned at 03:20, 118mls.
[2023-10-19 03:59] LABS: OBS Int Ctl Valid YES; OBS1 NEGATIVE (NEGATIVE)
[2023-10-19] MEDS: Levothyroxine Sodium 50 MCG TABLET PO (05:02)
[2023-10-19] MEDS: Omeprazole 20 MG CAPSULE.DR PO (05:02)
[2023-10-19 07:03] LABS: Hematocrit 36.8 % (37.0-47.0); Mean Corpuscular HGB Conc 29.9 g/dl (31.0-35.0); Mean Corpuscular Hemoglobin 26.3 pg (27.0-33.0); Mean Corpuscular Volume 87.8 fL (80.0-98.0); Mean Platelet Volume 12.1 fL (9.4-12.3); Platelet Count 531 X10*3/uL (160-400); Red Blood Count 4.19 X10*6/uL (4.20-5.50); Red Cell Distribution Width 19.2 % (11.0-16.0); White Blood Count 10.6 X10*3/uL (4.8-10.8)
[2023-10-19 08:00] VITALS: BP 138/63; PULSE 71; RESP 18; TEMP 36.9; O2SAT 97
--- NOTE | 2023-10-19 09:20 | MHC.CM.PN ---
Addendum entered by Nicole Mari 10/19/23 12:16: CM RECEIVED A CALL FROM [facility]. SHE REPORTS THE FACILITY EXPRESSED CONCERN THAT THE PT HAD MADE AN SI STATEMENT SHE WAS INFORMED THE PT WAS CLEARED BY THE CARE TEAM, DOCUMENTATION OF CRISIS CLEARNACE AND DCS SENT TO [facility] Addendum entered by Nicole Mari 10/19/23 10:17: [facility]OTH OFFERING CM MET WITH PT AND TO DISCUSS BED OFFERS, PT SAYS SHE HAS BEEN TO [facility] IN THE PAST AND DID NOT LIKE IT SHE SAYS SHE WOULD PREFER TO [facility] WILL PROVIDE TRANSPORT AND IS AWARE THE SNF IS EXPECTING PT FOR 1300 HOURS Original Note: [facility] SPOKE TO [facility] WHO THOUGHT THAT PT WOULD BE DISCHARGING TO [facility] TODAY CM EXPLAINED THERE ARE NO BED OFFERS AT THIS TIME AND THE REFERRAL HAS BEEN EXPANDED CM WILL UPDATE PT/ WHEN THERE IS A BED OFFER.
[2023-10-19] MEDS: Magnesium Oxide 400 MG TABLET PO (09:55)
[2023-10-19] MEDS: Cholecalciferol (Vitamin D3) 25 MCG TABLET 50 MCG PO (09:55)
[2023-10-19] MEDS: Metoprolol Tartrate 12.5 MG HALFTAB PO (09:55)
[2023-10-19] MEDS: cefuroxime axetiL 500 MG TABLET PO (09:56)
[2023-10-19] MEDS: Ezetimibe 10 MG TABLET PO (09:56)
[2023-10-19] MEDS: Venlafaxine HCl ER 37.5 MG CAP.ER.24H PO (10:05)
[2023-10-19] MEDS: 0.9 % Sodium Chloride Flush 3 ML SYRINGE IVFLUSH (10:06)
[2023-10-19 11:25] VITALS: BP 122/67; PULSE 55; RESP 18; TEMP 36.6; O2SAT 93
--- NOTE | 2023-10-19 11:31 | P.DS_ITS ---
DS: Providers Provider Date of Service: 10/19/23 Date of admission: 10/15/23 22:31 Primary care physician: John Melendez III, MD Consults: 10/15/23 22:56 Consult to Cardiology Routine Consulting Provider: [facility] Cardi[facility] Services Reason for consultation: new onset afib Has provider been notified: Yes 10/17/23 13:55 Consult to Care Team Routine Comment: Reason for consultation: suicidal ideation 10/18/23 14:42 Consult to Gastroenterology Routine Consulting Provider: Bessy De Reason for consultation: acute on ch anemia no bleeding on eliquis Has provider been notified: No DS: Diagnosis Discharge Diagnosis (1) Anemia: Status: Acute DS: Summary Hospital Course Hospital Course: History of presenting illness: Date of Service: 10/15/23 Attending physician on admission: Niharika Wright Chief Complaint: weakness, poor po intake, encephalopathy 68-year-old female with history of hypertension, peripheral artery disease anticoagulated with Eliquis, AAA, history cocaine abuse in remission, CKD stage 3, history TIA, former smoker, with recent admission to [facility] for a left hip fracture s/p left RENETTA (10/03) with discharge on 10/08- was recommended for skilled rehab but declined and was discharged home with services-presented to the ED earlier today via EMS due to significantly limited p.o. intake, weakness, dehydration, per EMS report, the patient has been deteriorating since her discharge. The patient is encephalopathic and is unable to provide meaningful history. And review of [facility] chart, on discharge, the patient was lucid. She lives at home with her who is unable to be reached at this time for further history. On arrival, patient tachycardic to 137, vitals otherwise stable. Per ED reprot, patient was in AFib RVR (new onset) though no EKG is available for review. Given 2.5mg IV lopressor, 10 mg diltiazem, and 2L IVF with conversion to NSR, rates high 50s. There is a leukocytosis of 16.1, possibly hemoconcentrated. H/H 9.0/30.0%, improved since discharge from [facility]. Platelets 604. Renal function baseline though BUN increased to 28, electrolyte levels normal except for mild hyponatremia of 146. Lactic acid 0.9. AST 110, ALT 37. Urinalysis unremarkable. Chest x-ray shows new airspace opacities in the left lung with associated volume loss and leftward mediastinal shifting and a small left-sided pleural effusion suspicious for aspiration/pneumonia as well as atelectasis. XR left pelvis shows total left-sided hip arthroplasty without evidence of hardware fracture or complication and no acute fracture or subluxation. Head CT negative for any acute intracranial abnormality which shows mild generalized atrophy and nonspecific periventricular white matter disease. Hospital course: 68-year-old female with history of HTN, PAD on Eliquis, AAA, history cocaine abuse in remission, CKD stage 3, history TIA, former smoker, with recent admission to [facility] for a left hip fracture s/p left RENETTA (10/03) with discharge on 10/08- declined [facility] facility - was admitted for management of aspiration pneumonia with acute hypoxemic respiratory failure and acute metabolic encephalopathy. Admitted for Acute toxic metabolic encephalopathy now resolved was likely multifactorial due to multiple narcotic medication , hypoxia and pneumonia, oxycodone dose adjusted, Ultram discontinued, finish 5 day course of antibiotics for pneumonia, hypoxia improved but still requiring oxygen recommend to gradually wean oxygen as tolerated, patient seems to be at her baseline, awake alert at times forgetful. Patient also noted to have Acute on Chronic normocytic anemia , no active bleeding was noted,normal B12 and folate, stool guaiac negative, iron studies consistent with anemia of chronic disease as well as low iron likely due to poor nutrition, patient is a vegetarian, placed on iron supplements, drop in hematocrit likely dilutional received phone unit of packed RBC hematocrit improved, patient evaluated by Gastroenterology they recommend upper endoscopy and colonoscopy as outpatient after patient recovered from her hip surgery New onset atrial fibrillation with RVR noted on admission, now in Sinus rhythm with occasional PAC, on Eliquis 2.5mg bid for anticoagulation and metoprolol 12.5 BID for rate control Echocardiogram showed EF of 65-70%, LV/RV function normal, TSH elevated with T4 in normal range; subclinical hypothyroidism,patient is asymptomatic. Left hip fracture s/p RENETTA 10/03 Pain well controlled with tylenol and lower dose of oxycodone, being discharged to rehab for less than 30 days Poor PO intake/deconditioning placed on ensure supplements CKD stage 3: Hypertension -Continue amlodipine and low-dose beta-blockers HLD:-Continue ezetimibe GERD: -Continue omeprazole Mood disorder:- Continue venlafaxine PAD -Continue Eliquis Time Attestation Discharge coordination time: Greater than 30 minutes Quality: Safe Use of Opioids Does Pt have an Active Cancer Diagnosis on the Problem List?: No Quality: Stroke Does the patient have a stroke diagnosis?: No Physical Exam Vital Signs: Vital Signs: Last Vital Signs Temp 97.9 F 10/19/23 11:25 Pulse 55 10/19/23 11:25 Resp 18 10/19/23 11:25 BP 122/67 10/19/23 11:25 Pulse Ox 93 10/19/23 11:25 O2 Del Method Room Air 10/19/23 11:25 O2 Flow Rate 2 10/19/23 08:00 BMI result Body Mass Index 21.8 Const: Other: Gen: Awake and communicative resting comfortably in bed. A&O x 3, at times forgetful. neck no jvd Lungs: clear to auscultation bilaterally with no rhonchi, wheezing, rales. No accessory muscle use Heart: regular rate and rhythm, no murmurs; pulses 2+ throughout Abd: soft, non-tender, non-distended Ext: no edema Skin: warm/pallor Neuro: alert and oriented x3, no focal findings Psych: appropriate affect DS: Data Data Completed and Pending Labs on day of discharge: Laboratory Results - last 24 hr 10/18/23 10/18/23 10/18/23 03:19 09:44 17:04 WBC RBC Hgb Hct MCV MCH MCHC RDW Plt Count MPV Absolute Nucleated RBC Nucleated RBC % (auto) Urine Color Yellow Urine Appearance Clear Urine pH 7.5 Ur Specific S[place] <= 1.005 Urine Protein Negative Urine Glucose (UA) Negative Urine Ketones Negative Urine Blood Negative Urine Nitrite Negative Ur Leukocyte Esterase Trace H Urine RBC 0-2 Urine WBC 0-5 Ur Squamous Epith Cells 0-2 Urine Bacteria None Seen Hyaline Casts 0-2 Stool Occult Blood NEGATIVE Blood Type O Positive Antibody Screen NEGATIVE Crossmatch See Detail 10/19/23 06:39 WBC 10.6 RBC 4.19 L D Hgb 11.0 L D Hct 36.8 L D MCV 87.8 D MCH 26.3 L MCHC 29.9 L RDW 19.2 H Plt Count 531 H MPV 12.1 Absolute Nucleated RBC 0.000 Nucleated RBC % (auto) 0.0 Urine Color Urine Appearance Urine pH Ur Specific [place] Urine Protein Urine Glucose (UA) Urine Ketones Urine Blood Urine Nitrite Ur Leukocyte Esterase Urine RBC Urine WBC Ur Squamous Epith Cells Urine Bacteria Hyaline Casts Stool Occult Blood Blood Type Antibody Screen Crossmatch Preliminary micro results at discharge 10/15/23 20:31 Blood Culture - Preliminary Blood - Venous No growth after 48 hours. 10/15/23 20:31 Blood Culture - Preliminary Blood - Venous No growth after 48 hours. Discharge Plan Discharge Anticipated Discharge Date/Time: 10/19/23 11:20 Patient Disposition: Xfer SNF Discharge Diagnosis: Acute toxic metabolic encephalopathy Acute on chronic normocytic anemia Acute hypoxic respiratory failure due to pneumonia New onset atrial fibrillation Referrals: [facility] [Outside] John Melendez III, MD [Primary Care Provider] - 1 Week Discharge Medications: New oxycodone 5 mg Tablet 2.5 mg PO Q6H PRN (Reason: Severe Pain (Scale Score 7-10)) Qty: 15 0RF Rx Instructions: Partial Fill upon patient request. ferrous sulfate 325 mg (65 mg iron) tablet,delayed release (DR/EC) 325 mg PO BID Qty: 60 0RF metoprolol tartrate 25 mg tablet 12.5 mg PO BID Qty: 30 0RF ascorbic acid (vitamin C) [Vitamin C] 250 mg tablet 250 mg PO BID Qty: 60 0RF Continued levothyroxine 50 mcg tablet 1 tab PO DAILY@0600 omeprazole 20 mg capsule,delayed release(DR/EC) 1 cap PO DAILY cholecalciferol (vitamin D3) [Vitamin D3] 50 mcg (2,000 unit) Tablet 50 mcg PO DAILY venlafaxine 37.5 mg capsule,extended release 24hr 37.5 mg PO DAILY amlodipine 5 mg tablet 5 mg PO DAILY ezetimibe 10 mg tablet 10 mg PO DAILY magnesium oxide 400 mg (241.3 mg magnesium) tablet 400 mg PO BID Eliquis 2.5 mg Tablet 2.5 mg PO BID docusate sodium 100 mg capsule 100 mg PO BID PRN (Reason: constipation) buprenorphine 15 mcg/hour patch weekly 1 patch transdermal FR Discontinued zolpidem 10 mg tablet 10 mg PO BEDTIME PRN (Reason: insomnia) Qty: 7 0RF oxycodone 5 mg tablet 5 mg PO Q4H PRN (Reason: Severe Pain (Scale Score 7-10)) tramadol 50 mg tablet 50 - 100 mg PO Q6H PRN (Reason: Moderate Pain (Scale Score 5-6)) Discharge Orders: Discharge Order (Routine); Ordered 10/19/23 Ordered By: Melly So Diet: Advance to usual diet Activity on Discharge: As tolerated Stand Alone Forms: Patient Portal Discharge page Care Plan Goals: New onset atrial fibrillation started on low-dose metoprolol and continue Eliquis Left hip recent surgery minimize use of narcotics Acute encephalopathy resolved likely due to polypharmacy Chronic anemia received 1 unit of packed RBC, poor iron intake patient is vegetarian started on iron supplements, will need outpatient colonoscopy and upper endoscopy by Dr. De arrange for outpatient follow-up after recovers from left hip fracture Health Concerns: Chronic anemia Chronic narcotic use Plan of Treatment: Outpatient follow-up with primary care physician, Orthopedic surgery and Gastroenterology Dr. De after recovering from hip surgery for GI evaluation. Assessment: As above
== END 2023-10-19 12:42 | disposition skilled nursing facility (03) | DRG 177 ==
LOC: HO.ED 17:46 → HO.EDOVER 22:47 → HO.IMC 10-16 07:57
PROVIDERS: Admitting Provider Physician Assistant; Emergency Provider Internal Medicine; PCP Internal Medicine; Visit Provider Hospitalist
DX: J69.0 Pneumonitis due to inhalation of food and vomit (principal); G92.8 Other toxic encephalopathy; J96.01 Acute respiratory failure with hypoxia; J91.8 Pleural effusion in other conditions classified elsewhere; R45.851 Suicidal ideations; D63.1 Anemia in chronic kidney disease; F39 Unspecified mood [affective] disorder; I73.9 Peripheral vascular disease, unspecified; I12.9 Hypertensive chronic kidney disease with stage 1 through stage 4 chronic kidney disease, or unspecified chronic kidney disease; E03.8 Other specified hypothyroidism; E78.5 Hyperlipidemia, unspecified; F14.11 Cocaine abuse, in remission; E86.0 Dehydration; N18.30 Chronic kidney disease, stage 3 unspecified; I48.91 Unspecified atrial fibrillation; Z20.822 Contact with and (suspected) exposure to COVID-19; Z87.891 Personal history of nicotine dependence; Z79.01 Long term (current) use of anticoagulants; Z79.890 Hormone replacement therapy; Z79.899 Other long term (current) drug therapy
CPT/HCPCS: 36415; 36600; 70450; 71045; 72170; 73502; 73560; 80048; 80053; 80076; 80307; 81001; 81003; 82272; 82607; 82728; 82746; 82803; 83540; 83605; 83735; 84436; 84443; 85025; 85027; 85610; 85730; 86850; 86900; 86901; 86923; 87040; 87635; 92526; 92610; 93005; 93306; 97116; 97162; 97530; 99285; C1758; J0692; J0696; J1630; P9016; Q9957; S9485

== ENCOUNTER 2023-10-15 22:31 | Outpatient (BNV) | payer OTHER, SELFPAY | END 2023-10-16 07:00 | PROVIDERS: Admitting Provider Physician Assistant; Emergency Provider Internal Medicine; PCP Internal Medicine; Visit Provider Internal Medicine Cardiovascular Disease | DX: I36.1 Nonrheumatic tricuspid (valve) insufficiency (principal); I48.91 Unspecified atrial fibrillation | CPT/HCPCS: 93306 ==

== ENCOUNTER → 2023-10-15 22:31 | Outpatient (BNV) | payer OTHER, SELFPAY | PROVIDERS: Admitting Provider Physician Assistant; Emergency Provider Internal Medicine; PCP Internal Medicine; Visit Provider Physician Assistant | DX: D64.9 Anemia, unspecified (principal); N18.30 Chronic kidney disease, stage 3 unspecified; I10 Essential (primary) hypertension | CPT/HCPCS: 99223; 99233; 99239 ==

== ENCOUNTER → 2023-10-15 22:31 | Outpatient (BNV) | payer OTHER, SELFPAY | PROVIDERS: Admitting Provider Physician Assistant; Emergency Provider Internal Medicine; PCP Internal Medicine; Visit Provider Internal Medicine Gastroenterology | DX: D64.9 Anemia, unspecified (principal) | CPT/HCPCS: 99499 ==

== ENCOUNTER → 2023-10-15 22:31 | Outpatient (BNV) | payer OTHER, SELFPAY | PROVIDERS: Admitting Provider Physician Assistant; Emergency Provider Internal Medicine; PCP Internal Medicine; Visit Provider Internal Medicine Cardiovascular Disease | DX: I48.91 Unspecified atrial fibrillation (principal) | CPT/HCPCS: 93010; 99222 ==

== ENCOUNTER 2024-12-22 10:36 | Outpatient (REF) | payer OTHER, SELFPAY ==
[2024-12-22 11:37] LABS: Anion Gap 12 (12-20); Carbon Dioxide 24 mmol/L (22-29); Chloride 110 mmol/L (96-108); Sodium 141 mmol/L (135-145)
--- OUTSIDE RECORDS SUMMARY | 2024-12-22 12:47 | XMS_ITS ---
Author Organization [facility] Care Team Providers Care Boxing Trainer Name Role Phone Jhoana Michael Unavailable Unavailable Mayra Jin Unavailable Unavailable Fransisco Russell Unavailable Unavailable Aimee Shepherd Unavailable Unavailable Allergies and adverse reactions Code CodeSystem Substance Reaction Severity StartDate Concern Status 2403 RXNORM Thorazine Severe 10/19/[address] Penicillins Severe 10/19/2023 activ e 56574 RXNORM Lisinopril Moderate 10/19/2023 active 85816 RXNORM Gabapentin Severe 10/19/2023 active ADHESIVE TAPE Severe 10/19/2023 active Care Team Name Role Address Phone Organization Dates Fransisco Russell PCP [address], [place], [address], [place] (Office): [facility] 10/19/2023 - 10/21/2023 Jhoana Michael Attending Physician [address] [place], [address], [place] (Office): [facility] 10/19/2023 - 10/21/2023 Mayra Jin Attending Physician [address] [address], [place], [address], [place] (Office): [facility] 10/19/2023 - 10/21/2023 Aimee Shepherd Attending Physician [address], [place], [address], [place] (Office): [facility] 10/19/2023 - 10/21/2023 Mental Status Section Date Assessment Total Score Description 10/21/2023 BIMS 15 cognitively int act CAM 0 No delirium ind icated 10/21/2023 CAM 0 No delirium ind icated Problems Problem # Description Date of onset Resolved Date Code CodeSystem Concern Status 1 DEPRESSION, UNSPECIFIED 10/20/[address] active 2 CHRONIC KIDNEY DISEASE, STAGE 3 UNSPECIFIED 10/19/[address] active 3 ESSENTIAL (PRIMARY) HYPERTENSION 10/19/[address] active 4 METABOLIC ENCEPHALOPATHY 10/19/[address] active 5 PAROXYSMAL ATRIAL FIBRILLATION 10/19/[address] active 6 PERIPHERAL VASCULAR DISEASE, UNSPECIFIED 10/19/[address] active 7 PNEUMONITIS DUE TO INHALATION OF FOOD AND VOMIT 10/19/[address] active 8 UNSPECIFIED FRACTURE OF LEFT FEMUR, SUBSEQUENT ENCOUNTER FOR CLOSED FRACTURE WITH ROUTINE HEALING 10/19/[address] active Reason for Referral No Reasons for Referral Entered Social History Social History Observation Description Start Date End Date Code Code System Current Smoking Status Tobacco smoking consumption unknown 389444361 SNOMED CT Sex Assigned At Female 1955 62577-3 [facility] Vital Signs Code Code System Vitals Name Values and Units Timing Information 8462-4 LOINC Blood Pressure-Diastolic Value=65 Un its=mmHg 10/21/2023 8480-6 LOINC Blood Pressure-Systolic Nirzp=498 Un its=mmHg 10/21/2023 8310-5 LOINC Body Temperature Value=97.5 Units=?? F 10/21/2023 8867-4 LOINC Heart rate Value=78.0 Units=/min 36919-5 LOINC O2 % BldC Oximetry Value=97.0 Units= % 10/21/2023 36087-5 LOINC Pain Level Value=0.0 10/21/2023 9279-1 LOINC Respiratory Rate Value=18.0 Units=/m in 10/20/2023 14468-7 LOINC Weight Value=96.6 Units=Lbs 09/24
--- OUTSIDE RECORDS SUMMARY | 2024-12-22 12:47 | XMS_ITS | Encounter Summary ---
Author Organization [facility] Address [address] [place] [address] Care Team Providers Care Director Systems Name Role Phone John Melendez MD Primary Care Provider [phone] Reason for Visit * Reason Onset Date Comments Provider Call Back 12/18/2024 Encounter Details Date Type Department Care Team ([facility] Contact Info) Description 12/18/2024 Telephone Adult Medicine [address] [phone] Courtney Hinojosa MA Provider Call Back Social History Tobacco Use Types Packs/Day Years Used Date Smoking Tobacco: Former Cigarettes Q uit: 12/23/2015 Smokeless Tobacco: Never Alcohol Use Standard Drinks/Week Comments No 0 (1 standard drink = 0.6 oz pur e alcohol) Comments Unknown Sex and Gender Information Value Date Recorded Sex Assigned at Not on file Legal Sex Female 4:43 AM EST Gender Identity Not on file Sexual Orientation Not on file documented as of this encounter Progress Notes * Julianna Yusuf RN - 12/22/2024 8:48 AM EDT Called pt. She states she is getting her potassium level rechecked today. She was encouraged to contact the office and update us of the results once she gets them. She is in agreement with this plan. * John Melendez MD - 12/21/2024 6:54 PM EDT Noted can we ask the patient to make sure to inform us of her potassium result * Julianna Yusuf RN - 12/21/2024 9:38 AM EDT Called and spoke to Evelyn at [facility]. Her potassium was noted to be 6.1 on 12/17/24. She was sent to the ER but did not go. She was encouraged to drink fluids and to call 911 for chest pain, shortness of breath, muscle aches. A repeat potassium level was ordered. She has an appointment with her neurologist tomorrow in [place] and states she will have per potassium rechecked then. * Courtney Hinojosa MA - 12/18/2024 9:48 AM EDT Veronica the nurse is calling wants to follow up on Patients elevated Potassium level,Patient was sent to the ED.last one was 6.1 Please advise. documented in this encounter Plan of Treatment Not on file documented as of this encounter Visit Diagnoses Not on filedocumented in this encounter Care Teams Director Systems Relationship Specialty Start Date End Date John Melendez MD PCP - General Internal Medicine 05/19/20 documented as of this encounter
--- OUTSIDE RECORDS SUMMARY | 2024-12-22 12:47 | XMS_ITS ---
Author Organization [facility] Care Team Providers Care Ammonia Box Tender Name Role Phone StevenDecember Camille Unavailable Un available Steph, Macrina Stubbs Unavailable Unavailable Lord, Veronica Long Unavailable Unavailable Levingston, Dylan Alcantar Unavailable Unavailable Sarah, Jose Unavailable Unavailable Grippin, Ariana A Unavailable Unavailable Levheim, Salome M Unavailable Unavailable Yoss, Crys S Unavailable Unavailable Vickey, Madeleine Unavailable Unavailable Seifel, Madeleine R Unavailable Unavailable Jeanna Pritchett Unavailable U navailable Tatum García Unavailable Unavailable Allergies and adverse reactions Code CodeSystem Substance Reaction Severity StartDate Concern Status 86888358 SNOMED CT Transition elements Eruption (code- 974051987, SNOMED CT) Moderate 10/09/2023 active 2403 RXNORM Thorazine Unknown 10/08/2023 active 7984 RXNORM Penicillin Unknown 10/08/2023 active 67503 RXNORM Gabapentin Unknown 10/08/2023 active 2878 RXNORM Cortisone Unknown 10/08/2023 active anabolic steroids Unknown 10/08/2023 act alberta ADHESIVE BANDAGE Unknown 10/08/2023 acti ve Care Team Name Role Address Phone Organization Dates December Camille Harris Attending Physician [address] [place], [address], [place]Office[place] : : [facility] 10/08/2023 - 10/09/2023 Macrina Choi Attending Physician [address] [place] [address] [address], [place], [address], [place] (Office): : [facility] 10/08/2023 - 10/09/2023 Veronica Ceja Attending Physician [address] [place] [address], [phone], [place] (Office): : [facility] 10/08/2023 - 10/09/2023 Dylan Francisco Attending Physician [address] [place] [address], [address], [place] (Office): : [facility] 10/08/2023 - 10/09/2023 Jose Smith Attending Physician [address] [place] [address] [address], [place], [address], [place] (Office): : [facility] 10/08/2023 - 10/09/2023 Ariana Adams Attending Physician [address] [place] [address] [address], [place], [address], [place] (Office): : : [facility] 10/08/2023 - 10/09/2023 Salome Levy Attending Physician [address] [place] [address] [address], [place], [address], [place] (Office): : [facility] 10/08/2023 - 10/09/2023 Crys Greene Attending Physician [address] [place] [address] [address], [place], [address], [place] (Office): : [facility] 10/08/2023 - 10/09/2023 Madeleine Hurd Attending Physician [address] [facility] [address], [place], [address], [place]Office[place] : : [facility] 10/08/2023 - 10/09/2023 Madeleine Acevedo Attending Physician [address] [facility] [address], [place], [address], [place]Office[place] : [facility] 10/08/2023 - 10/09/2023 Jeanna zafar Attending Physician [address] , [place], [address], [place]Office): : [facility] 10/08/2023 - 10/09/2023 Tatum García Attending Physician [address] [facility] [address], [place], [address], [place] (Office): : [facility] 10/08/2023 - 10/09/2023 Immunizations Immunization Status Vaccine Details Vaccine Code CodeSystem Date Notes TB 1 Step Mantoux (PPD) completed tuberculin skin test; purified protein derivative solution, intradermal lotNumber: [id number] expiry: 11/21/2024 Mfg: par Given 0.1 ml Right Forearm subcutaneously 96 CVX created date: 10/09/2023 consent date: 10/08/2023 administere d date: 10/09/2023 TD Diphtheria/Tetanu s completed tetanus and diphtheria toxoids, adsorbed, preservative free, for adult use (2 Lf of tetanus toxoid and 2 Lf of diphtheria toxoid) 09 CVX created date: 10/09/2023 administere d date: 07/10/2022 TDAP(tetanus/dipt h/pertuss) completed tetanus toxoid, reduced diphtheria toxoid, and acellular pertussis vaccine, adsorbed 115 CVX created date: 10/09/2023 administere d date: 07/29/2007 Pneumovax Dose 3 -if indicated completed pneumococcal polysaccharide vaccine, 23 valent 33 CVX created date: 10/09/2023 administere d date: 07/03/2019 COVID-19 Vaccine Dose 1 completed unknown vaccine or immune globulin 999 CVX created date: 10/09/2023 administere d date: 01/02/2021 COVID-19 Vaccine Dose 2 completed unknown vaccine or immune globulin 999 CVX created date: 10/09/2023 administere d date: 08/21/2021 Flu Vaccine Prior To Admission (historical only) completed unknown vaccine or immune globulin 999 CVX created date: 10/09/2023 administere d date: 07/23/2023 Flu Vaccine Prior To Admission (historical only) completed unknown vaccine or immune globulin 999 CVX created date: 10/09/2023 administere d date: 07/10/2022 Flu Vaccine Prior To Admission (historical only) completed unknown vaccine or immune globulin 999 CVX created date: 10/09/2023 administere d date: 06/15/2021 Mental Status Section Date Assessment Total Score Description 10/09/2023 CAM 0 No delirium ind icated 10/09/2023 BIMS 15 cognitively int act CAM 0 No delirium ind icated Problems Problem # Description Date of onset Resolved Date Code CodeSystem Concern Status 1 THORACIC AORTIC ANEURYSM, WITHOUT RUPTURE, UNSPECIFIED 10/09/[address] active 2 ANXIETY DISORDER, UNSPECIFIED 10/08/[address] active 3 COCAINE DEPENDENCE, IN REMISSION 10/08/[address] active 4 DEPRESSION, UNSPECIFIED 10/08/[address] active 5 ENCOUNTER FOR OTHER ORTHOPEDIC AFTERCARE 10/08/[address] active 6 ESSENTIAL (PRIMARY) HYPERTENSION 10/08/[address] active 7 GASTRO-ESOPHAGEAL REFLUX DISEASE WITHOUT ESOPHAGITIS 10/08/[address] active 8 HISTORY OF FALLING 10/08/[address] active 9 HYPERKALEMIA 10/08/[address] activ e 10 IRRITABLE BOWEL SYNDROME WITH CONSTIPATION 10/08/[address] active 11 PAIN IN THORACIC SPINE 10/08/[address] active 12 PERIPHERAL VASCULAR DISEASE, UNSPECIFIED 10/08/[address] active 13 PERSONAL HISTORY OF INFECTIONS OF THE CENTRAL NERVOUS SYSTEM 10/08/[address] active 14 PERSONAL HISTORY OF TRANSIENT ISCHEMIC ATTACK (TIA), AND CEREBRAL INFARCTION WITHOUT RESIDUAL DEFICITS 10/08/[address] active 15 PRESENCE OF AORTOCORONARY BYPASS GRAFT 10/08/[address] active 16 PRESENCE OF LEFT ARTIFICIAL HIP JOINT 10/08/[address] active 17 PRESENCE OF OTHER VASCULAR IMPLANTS AND GRAFTS 10/08/[address] active Reason for Referral No Reasons for Referral Entered Social History Social History Observation Description Start Date End Date Code Code System Current Smoking Status Tobacco smoking consumption unknown 501346428 SNOMED CT Sex Assigned At Female 1955 15219-5 [facility] Vital Signs Code Code System Vitals Name Values and Units Timing Information 25401-0 [facility] Pain Level Value=4.0 10/09/2023 9279-1 [facility] Respiratory Rate Value=18.0 Units=/m in 10/09/2023 8462-4 [facility] Blood Pressure-Diastolic Value=56 Un its=mmHg 10/09/2023 8480-6 [facility] Blood Pressure-Systolic Bbdai=972 Un its=mmHg 10/09/2023 8310-5 [facility] Body Temperature Value=97.2 Units=?? F 10/09/2023 8867-4 [facility] Heart rate Value=71.0 Units=/min 13079-9 [facility] O2 % BldC Oximetry Value=94.0 Units= % 10/09/2023 88664-8 [facility] Weight Value=95.0 Units=Lbs 09/23 8302-2 [facility] Height Value=57.0 Units=Inches 10/09/2023
--- OUTSIDE RECORDS SUMMARY | 2024-12-22 12:47 | XMS_ITS | Data Portability ---
Author Organization [place] - [facility], [employer] Address [address] [place] [address] Care Team Providers Care Senior Peoplesoft Developer Name Role Phone YAHIR VALENTINE Primary Care Provider Assessment Encounter Date Assessment Date Assessment LastModified by Organization Details LastModified Time 01/29/2024 01/29/2024 CC FU left proximal humerus plate screw removal 01/13/2024 with retained intramedullary/sub acromial implants s/p left proximal humerus fracture healing HPI Annalise is pleased with result after implant removal. Less pain, improved shoulder appearance. EXAM L UE anterior shoulder scar benign. ROM shoulder ER 40, initiates active shoulder elevation/forward flexion XRAYS ordered obtained reviewed by me Left shoulder two views AP and scapular Y show evidence or prior fracture, healed, intramedullary plate with subacromial extension present A/P Recoverying well after implant removal from left proximal humerus. Satisfied with progress to date. Recheck in 3 mos to see if remaining plate is symptomatic (retained given potential bone risk to removal through ingrowth). [email or web address] Not available 01/29/2024 13:08:31 05/20/2024 05/20/2024 CC Right trochanteric femur fx, IMN 04/12/2024 HPI She presents by herself and in a wheel chair. She reports little pain. She is at home and her boyfriend is helping her with day to day activities. She is weight bearing with walker support but uses a wheelchair quite a abit because of fall risk. EXAM Right lower extremity lateral thigh incisions sealed, hip active flexion intact, leg swelling minimal calf nontender XRAYS ordered obtained reviewed by me Right hip ap and lateral views, pelvis ap view show the femur trochanteric slight valgus reduction with short intramedullary implant position maintained A/P Right trochanteric femur fracture - incisions healing, reduction maintained, recovery progressings approraitely - continue wbat - fu 4-5 mos wtih xrays pelvis and right hip two views [email or web address] Not available 05/20/2024 10:35:34 09/29/2024 09/29/2024 SUBJECTIVE CHIEF COMPLAINT Left shoulder pain and bumps. HISTORY OF PRESENT ILLNESS presents for scheduled follow-up. Her primary complaint is about her left shoulder, with a history of fracture and ORIF over two years ago, followed by subsequent plate and screw removal, leaving an intramedullary plate in place. She reports some loss of body mass and increased bumps over the shoulder, along with shoulder pain. reports minimal bother from her right hip and continues to use a walker for several years due to multiple reasons. She reports multiple aches and pains related to joints and has received a new diagnosis of osteoarthritis from other care providers. OBJECTIVE EXAMINATION Left upper extremity, shoulder: Notable for well-healed surgical scars, with a palpable implant over the anterior lateral humeral head that becomes more prominent with shoulder extension. There is no overlying skin compromise, and shoulder motion is supple. IMAGING X-rays ordered, obtained, and reviewed by me today at [facility]: - Left shoulder, three views: Show proximal humerus with acceptable anatomy, no current fractures, and a third tubular pipe implant with an acute bend in intramedullary position, extending subacromial in location. - Right hip, two views: Show a proximal femur short cephalomedullary implant with fracture proximal femur resolved, acceptable anatomy, incidental note of left hip prosthesis. OTHER DATA None at this time. ASSESSMENT 1. Painful implants, left proximal humerus, history of left proximal humerus fracture, status post-open reduction, internal fixation, and partial implant removal with routine fracture healing. 2. Right proximal femur, trochanteric fracture, status post-cephalomedull josette fixation with routine healing. PLAN 1. Ongoing observation of the left shoulder with follow-up in three to four months, and x-rays, left shoulder, three or four views. 2. Surgery elective for removal of the remaining implant was discussed with SR. The nature of the procedure, potential for inability to remove the implants without considerable bone destruction, and the potential outcome of persistent symptoms or even worse pain symptoms after implant removal were described. SR's decision was to leave the implants in place at this time. 3. Her recovery from the right proximal femur fracture is progressing well. [email or web address] Not available 09/29/2024 09:56:07 Plan of Treatment Reminders Order Date Submit Date Provider Last Modified By Organization Details Last Modified Time Details Appointments RECHECK 15 2024 09:00A Jerson Fernandez MD Not available Not available Not available Lab None recorded . Referral None recorded . Procedures None recorded . Surgeries None recorded . Imaging XR, hip + pelvis, unilater al, 2 or 3 view - 313 2v right hip, ap pelvis, recheck 2024 025 [email or web address] [facility], [address], [address], [place], [address], 09/29/2024 15:21:23 XR, shoulder , 2 or more view - 313 2v left shoulder recheck 2024 025 [email or web address] [facility], [address], [address], [place], [address], 09/29/2024 15:21:23 XR, hip + pelvis, unilater al, 2 or 3 view - 315 right hip 2v and ap pelvis global pls let me know if tutu and i can remove in xr 2023 024 [email or web address] [facility], [address], [address], [place], [address], 05/20/2024 14:00:24 XR, shoulder , 2 or more view - 315 left shoulder 2 v recheck 2023 024 [email or web address] [facility], [address], [address], [place], [address], 01/29/2024 17:24:36 XR, knee, 4 or more view - left knee 4 v [email or web address] 2023 024 [email or web address] [facility], [address], [address], [place], [address], 01/15/2024 08:32:48 XR, shoulder , 2 or more view - rm 314- lt proximal humerus fx recheck 2023 024 [email or web address] [facility], [address], [address], [place], [address], 12/18/2023 11:29:36 Medication Orders meloxica m 15 mg tablet 2023 025 [email or web address] [id number], [address] [facility], [place], [address], 09/29/2024 09:25:26 Patient TargetsNo targets recorded. Patient InstructionsNo instructions recorded. Reason for Referral None Reported. Results Created Date Observation Date Name Description Value Unit Range Abnormal Flag Note LastModifiedBy Organization Detail LastModifiedTime 01/29/2001/29/2024 XR, shoul cecilia, 2 or more view [email or web address] ?Encry pted=s hAaTro YD8dLq bEUv6g %2BXZw aYqtaq 0bqfl% 2Fg9IQ a4ajBk vP9nXo QUaueC m3YtLR FvZlgJ JJ8mAn HZtai3 5j4238 AC0Kva 32HWaX eUC8mr 84%3D INTERFACE [facility] [address], [place], [address], 01/29/2024 10:36:59 01/29/20 24 01/29/2024 XR, shoul cecilia, 2 or more view [email or web address] ?Encry pted=s hAaTro YD8dLq bEUv6g %2BXZw aYqtaq 0bqfl% 2Fg9IQ a4ajBk vP9nXo QUaueC m3YtLR FvZlgJ JJ8mAn HZtai3 2z0804 AC0Kva 32HWaX eUC8mr 84%3D INTERFACE [facility] [address], [place], [address], 01/29/2024 10:37:01 05/20/20 24 05/20/2024 XR, hip + pelvi s, unila teral , 2 or 3 view [email or web address] ?Encry pted=s hAaTro YD8dLq bEUv6g %2BXZw aYqtaq 0bqfl% 2Fg9IQ a4ajBk vP9nXo QUaueC m3YtLR FvZlgJ JJ8mAn HZtai3 6n0470 AC0Krb nqEVqL eUC8mr 84%3D INTERFACE [facility] [address], [place], [address], 05/20/2024 10:12:43 05/20/20 24 05/20/2024 XR, hip + pelvi s, unila teral , 2 or 3 view [email or web address] ?Encry pted=s hAaTro YD8dLq bEUv6g %2BXZw aYqtaq 0bqfl% 2Fg9IQ a4ajBk vP9nXo QUaueC m3YtLR FvZlgJ JJ8mAn HZtai3 8r1905 AC0Krb nqEVqL eUC8mr 84%3D INTERFACE [facility] [address], [place], [address], 05/20/2024 10:12:45 05/23/20 24 08/15/2020 imagi ng/di agnos tic resul t No observ ation record ed. [email or web address] Not Available 04/25 03:35:49 05/23/20 24 09/28/2021 imagi ng/di agnos tic resul t No observ ation record ed. [email or web address] Not Available 04/25 03:35:51 05/23/20 24 04/20/2022 imagi ng/di agnos tic resul t No observ ation record ed. [email or web address] Not Available 04/25 03:36:25 Result Notes None recorded. Problems Name Problem SNOMED Code Status Onset Date Resolution Date Notes Provider Name and Address Organization Details Recorded Time No complaint s 825375340 Active Status: 'I'; Not Available [facility] 4 09:12:17 Acquired hammer toe of left foot 031406632303 9103 Active 2015 Problem Code: M20.42; Problem Code Type: ICD-10; Status: 'A'; Not Available [facility] 4 10:55:16 Acquired left hallux valgus 743287630711 103 Active 2015 Problem Code: M20.12; Problem Code Type: ICD-10; Status: 'A'; Not Available [facility] 4 10:55:16 Closed fracture of upper end of humerus 76161430 Active 2023 Flor Fernandez MD [address] [facility], [place], [address] , [facility] 4 13:43:46 Problem Notes None recorded. Procedures Surgical History Date Name Laterality Status Provider Name and Address Organization Details Recorded Time 04/12/20 24 intramedullary nailing of femur completed KEEGAN PAYAN [facility] 09/29/2024 09:23:17 01/13/20 24 SURGICAL HARDWARE REMOVAL (SURG) completed ANDREW SPRAGUE [facility] 01/16/2024 10:45:37 10/08/19 24 open reduction of fracture of humerus with internal fixation completed KEEGAN PAYAN [facility] 09/29/2024 09:23:03 Imaging Results Imaging Date Name Status LastModified by Organiz ation Details LastModified Time 01/29/2024 XR, shoulder, 2 or more view completed INTERFACE [facility] [address], [place], [address], 01/29/2024 10:36:59 01/29/2024 XR, shoulder, 2 or more view completed INTERFACE [facility] [address], [place], [address], 01/29/2024 10:37:01 05/20/2024 XR, hip + pelvis, unilateral, 2 or 3 view completed INTERFACE [facility] [address], [place], [address], 05/20/2024 10:12:43 05/20/2024 XR, hip + pelvis, unilateral, 2 or 3 view completed INTERFACE Mina Mendez [address] [facility] [address], [place], [address], 05/20/2024 10:12:45 08/15/2020 imaging/diag nostic result completed Information not available 05/23/2024 03:35:49 09/28/2021 imaging/diag nostic result completed Information not available 05/23/2024 03:35:51 04/20/2022 imaging/diag nostic result completed Information not available 05/23/2024 03:36:25 Procedure Notes None recorded. Medical Equipment None Reported. Allergies Allergen ID Allergen Name Allergen Category Reaction Reaction Severity Criticality Documentation Date Start Date Code Code System Note Provider Name and Address Organization Details Recorded Time 94606 penicilli n G benzathin e medicatio n Not available Not available Not available 11/25/20232015 7982 RxNorm KEEGAN bhagat [facility] 4 13:25:50 95803 gabapenti n medicatio n Not available Not available Not available 11/25/20232020 47347 RxNorm Not Available [facility] 4 11:09:46 81044 Product containin g glucocort icoid (product) medicatio n Not available Not available Not available 11/25/20232021 65674 6006 SNOMED KEEGAN bhagat [place] [facility] 4 13:25:47 09099 Medicinal product acting as adhesive (product) environme nt,medica tion Not available Not available Not available 11/25/20232021 26791 2009 SNOMED Not Available [facility] 4 11:09:46 Medications Name Sig Start Date Stop Date Status Note LastModified by Organization Details LastModified Time magnesium oxide 400 mg tabs TAKE 1 TABLET BY MOUTH TWO TIMES A DAY 12/16 completed Not Available Not Available Not Available venlafaxine ER 37.5 mg capsule,ext ended release 24 hr TAKE 1 CAPSULE BY MOUTH EVERY DAY active Not Available Not Available No t Available clonidine HCl 0.1 mg tablet TAKE 1 TABLET BY MOUTH EVERY EVENING FOR 180 DAYS. active Not Available Not Available No t Available acetaminoph en 325 mg tablet TAKE 2 TABLETS BY MOUTH EVERY 6 HOURS NEEDED FOR FEVER active Not Available Not Available No t Available nicotine 14 mg/[address]mal patch PLACE 1 PATCH ONTO THE SKIN EVERY 24 HOURS 09/29 completed Not Available Not Available Not Available trazodone 50 mg tablet TAKE 1 TABLET BY MOUTH AT BEDTIME FOR 1 WEEK THEN 2 TABLETS AT BEDTIME ONCE A DAY 90 12/16 completed Not Available Not Available Not Available meloxicam 15 mg tablet TAKE 1 TABLET BY MOUTH EVERY DAY DIRECTED 09/29 completed Not Available Not Available Not Available alendronate 70 mg tablet TAKE 1 TABLET BY MOUTH ONE TIME PER WEEK active Not Available Not Available No t Available amlodipine 5 mg tablet TAKE 1 TABLET BY MOUTH EVERY DAY active Not Available Not Available No t Available tramadol 50 mg tablet TAKE 1 TO 2 TABLETS BY MOUTH EVERY 6 HOURS NEEDED FOR MODERATE PAIN. DO NOT EXCEED 8 TABLETS (400MG) PER DAY. 12/16 completed Not Available Not Available Not Available levothyroxi ne 25 mcg tablet TAKE 1 TABLET BY MOUTH EVERY DAY 12/16 completed Not Available Not Available Not Available oxycodone-a cetaminophe n 5 mg-325 mg tablet TAKE 1 TO 2 TABS EVERY 6 HOURS NEEDED FOR SEVERE PAIN (DO NOT DRIVE WHILE TAKING THIS MEDICATIO N 12/16 completed Not Available Not Available Not Available magnesium oxide 400 mg (241.3 mg magnesium) tablet TAKE 1 TABLET BY MOUTH EVERY DAY active Not Available Not Available No t Available levothyroxi ne 50 mcg tablet TAKE 1 TABLET BY MOUTH EVERY DAY active Not Available Not Available No t Available ferrous sulfate 325 mg (65 mg iron) tablet TAKE 1 TABLET BY MOUTH EVERY DAY active Not Available Not Available No t Available pseudoephed rine-guaife nesin ER 80-700 mg tablet,exte nded release 1-2 tabs PO q 6 [address] severe painDO NOT DRIVE WHILE TAKING THIS MEDICATIO N 09/12 completed Statu s: 'Disc ontin ued'; Not Available Not Available Not Available oxycodone 5 mg capsule PLEASE SEE ATTACHED FOR DETAILED DIRECTION S 12/16 completed Not Available Not Available Not Available nicotine 21 mg/[address] daily transdermal patch PLACE 1 PATCH ONTO THE SKIN EVERY 24 HOURS. 12/16 completed Not Available Not Available Not Available docusate sodium 100 mg capsule TAKE 1 CAPSULE BY MOUTH TWO TIMES A DAY NEEDED FOR CONSTIPAT ION 12/16 completed Not Available Not Available Not Available pramipexole 0.25 mg tablet TAKE 1 TABLET BY MOUTH EVERY DAY IN THE EVENING active Not Available Not Available No t Available omeprazole 20 mg capsule,del ayed release TAKE 1 CAPSULE BY MOUTH EVERY DAY active Not Available Not Available No t Available oxycodone-a cetaminophe n 2.5 mg-325 mg tablet TAKE 1 TABLET BY MOUTH EVERY 4 HOURS NEEDED FOR PAIN FOR UP TO 10 DAYS. 09/29 completed Not Available Not Available Not Available zolpidem 10 mg tablet TAKE 1 TABLET BY MOUTH EVERY DAY AT BEDTIME NEEDED FOR 30 DAYS active Not Available Not Available No t Available nicotine 7 mg/24 hr daily transdermal patch PLACE 1 PATCH ONTO THE SKIN EVERY 24 HOURS 12/16 completed Not Available Not Available Not Available oxycodone 5 mg tablet TAKE 1 TABLET BY MOUTH EVERY 6 HOURS FOR 3 DAYS NEEDED FOR PAIN 09/29 completed Not Available Not Available Not Available ezetimibe 10 mg tablet TAKE 1 TABLET BY MOUTH EVERY DAY active Not Available Not Available No t Available eszopiclone 3 mg tablet TAKE 1 TABLET BY MOUTH EVERY NIGHT FOR 28 DAYS 09/29 completed Not Available Not Available Not Available diclofenac 1 % topical gel 12/16 completed Not Available Not Available Not Available oxycodone HCl-oxycodo ne-ASA take 1 tablet every 4 - 6 hours as needed for pain 08/15 completed Statu s: 'Disc ontin ued'; Not Available Not Available Not Available buprenorphi ne 10 mcg/hour weekly transdermal patch APPLY 1 TRANSDERM AL EVERY WEEK FOR 28 DAYS 12/16 completed Not Available Not Available Not Available Eliquis 5 mg tablet TAKE 1 TABLET BY MOUTH TWICE A DAY active Not Available Not Available No t Available Eliquis 2.5 mg tablet TAKE 1 TABLET TWICE A DAY BY MOUTH DIRECTED FOR 7 DAYS, FOR DVT PROPHYLAX IS. 12/16 completed Not Available Not Available Not Available buprenorphi ne 15 mcg/hour weekly transdermal patch APPLY 1 TRANSDERM AL EVERY WEEK FOR 28 DAYS 09/29 completed Not Available Not Available Not Available buprenorphi ne 7.5 mcg/hour weekly transdermal patch APPLY 1 TRANSDERM ALLY EVERY WEEK FOR 28 DAYS 12/16 completed Not Available Not Available Not Available Vitals Date Recorded Body height Body mass index (BMI) Body weight Provider Name and Address Organization Details Last Updated DateTime 12/17/2023 148.59 cm 19.5 kg/m2 15500.28 g KEEGAN CALLOWAYYMOUR [facility] 12/17/2023 13:25:35 Date Recorded Body height Body mass index (BMI) Body weight Provider Name and Address Organization Details Last Updated DateTime 01/02/2024 148.59 cm 18.5 kg/m2 65581.31 g MOSES PELAEZ [facility] 01/02/2024 09:47:56 Date Recorded Body height Body mass index (BMI) Body weight Provider Name and Address Organization Details Last Updated DateTime 01/29/2024 148.59 cm 18.5 kg/m2 18510.31 g KEEGAN COPPOLAOUR [facility] 01/29/2024 10:22:47 Date Recorded Body height Body mass index (BMI) Body weight Provider Name and Address Organization Details Last Updated DateTime 05/20/2024 148.59 cm 18.5 kg/m2 97518.31 g KEEGAN COPPOLAOUR [facility] 05/20/2024 10:02:48 Date Recorded Body height Body mass index (BMI) Body weight Provider Name and Address Organization Details Last Updated DateTime 09/29/2024 148.59 cm 18.5 kg/m2 76052.31 g KEEGAN PAYAN [facility] 09/29/2024 09:20:01 Social History None recorded. Functional Status None recorded. Mental Status None recorded. Family History Nothing Reported. Medical History Condition Response Allergies/Hayfever N Coronary Artery Disease Y Anxiety/Depression Y Emphysema N Thyroid Problems Y COPD N Pacemaker N Kidney/Bladder Problems Y Anemia Y Vascular Disease Y Heart Trouble N Heart Attack (DC) N Gastrointestinal Disease N Diabetes N Autoimmune disease N Inflammatory Joint disease N Bleeding Disorder N Orthotics N Arthritis Y Seizures/Epilepsy N Blood Clot Y AIDS/HIV N Congestive Heart Failure (CHF) N Acid Reflux (GERD) Y Cancer N Stroke N Asthma N Peripheral Vascular Disease Y Sleep Apnea N Hepatitis N Heart Disease N Rheumatoid Arthritis N Arrhythmia Y Pulmonary Embolism N Fibromyalgia N Hypertension N Osteoporosis Y Gynecological HistoryNo gynecological history recorded. Obstetrics History GPAL:G 0 P 0 0 0 0 Past Encounters Encounter ID Performer Location Encounter Start Date Encounter Closed Date Diagnosis/Indication Diagnosis SNOMED-CT Code Diagnosis ICD10 Code Diagnosis Note [id number] MD [facility] [address] floor [address] [place] [address] 12/17/2023 13:13:54 12/17/2023 16:46:37 Closed fracture of proximal left humerus 2949690982 9534501 S42.202A Closed fra cture of upper end of humerus 15635598 S42.202D T84.84XA M25.512 fracture healing and position are satisfacto ryI think the implants especially the intramedul ele implant with subacromia l extension result in a portion of her pain complaints surgery for implant removal, all is presented, risk reviewed, outcomes discussed, postoperat alberta course reviewed preoperati ve medical evaluation , possibly cardiac evaluation , ideally hold anticoagul ation for surgery to resume day after surgery, bridging therapy to be considered based on medical/ca rdiology risk evaluation timing of surgery elective [id number] [facility] [address] [place] [address] 01/02/2024 09:23:07 01/15/2024 08:32:48 Pain of knee region 4760140309 M25.833 [id number] MD [facility] 3rd floor [address] [place] [address] 01/29/2024 10:10:41 01/29/2024 13:12:54 Fracture of shoulder 4824105478 6364115 S42.90XD [id number] MD [facility] 3rd floor [address] [place] [address] 05/20/2024 09:59:24 05/20/2024 10:41:48 Closed fracture of neck of femur 923322981 S72.001D [id number] MD [facility] 3rd floor [address] [place] [address] 09/29/2024 09:14:03 09/29/2024 10:05:54 Closed fracture of left shoulder 1877519795 4273935 S42.92XA Closed fra cture of hip 680279939 S72.001A Health Concerns Section Related Observation LastModified by Organization Detai ls LastModified Time None Recorded Concern Status LastModified by Organization Details LastModified Time None Recorded Advance Directives Directive None Recorded Payers Encounter Date Sequence Insurance Name Policy Number Policy Prieto Covered Member ID Prieto Member ID Guarantor Name 12/17/2023 1 [employer] - DOS ON OR AFTER 2022 - LONG-TERM OPTIONS AND ONE CARE (MEDICARE REPLACEMENT/AD VANTAGE - PPO) Annalise Young [id number] Annalise Young 01/02/2024 1 [employer] - DOS ON OR AFTER 2022 - LONG-TERM OPTIONS AND ONE CARE (MEDICARE REPLACEMENT/AD VANTAGE - PPO) Annalise Young [id number] Annalise Young 01/29/2024 1 [employer] - DOS ON OR AFTER 2022 - LONG-TERM OPTIONS AND ONE CARE (MEDICARE REPLACEMENT/AD VANTAGE - PPO) Annalise Young [id number] Annalise Young 05/20/2024 1 [employer] - DOS ON OR AFTER 2022 - LONG-TERM OPTIONS AND ONE CARE (MEDICARE REPLACEMENT/AD VANTAGE - PPO) Annalise Young [id number] Annalise Young 09/29/2024 1 [employer] - DOS ON OR AFTER 2022 - LONG-TERM OPTIONS AND ONE CARE (MEDICARE REPLACEMENT/AD VANTAGE - PPO) Annalise Young [id number] Annalise Young Notes Date Note Type Note Provider Name and Address Organization Details Recorded Time 12/17/2023 text/html CO L shoulder pa in, h/o left proximal humerus fx ORIF >1.5 yr ago, implant removal has been presented in the past, she would like to move forward with this She continues to have impaired mobility, walker dependent, she had hip arthroplasty revision in the past year complicated by a. fib and is now on anticoagulation Flor Fernandez MD [address] [facility] [address], [place], [address], [facility] 12/17/2023 16:01:38 01/02/2024 text/html I am seeing the patient today under the supervision of Dr. Leon who was available but who did not see the patient. HPI:Patient is a 68-year-old female with a history of a left tibial plateau fracture and 2020 that was fixed by Dr. Serrano. She presents to the office today for complaint of left knee pain. She has been having chronic left knee pain since the fall and surgery. Also complains of deformity in her knee. States that she has difficulty with prolonged standing and walking as well as getting up from a seated position. Her knee gives out on her at times. Currently not utilizing any medications for pain relief. Denies mechanical symptoms such as catching or locking. Past family, medical, social history and review of systems has been reviewed, updated and is located in the patient? s chart. Examination:Well appearing 68-year-old female in no acute distress. She is alert and oriented x3. She uses a Rollator for ambulatory support. Antalgic gait favoring the right side. Left knee reveals significantValgus deformity. No erythema, warmth, ecchymosis, or swelling. Tenderness to palpation over both medial and lateral joint lines. Range of motion of the knee from 5-120 degrees.Laxity with both valgus and varus stress testing. Knee strength 5/5 against resistance with flexion and extension. Negative Danika test. Negative Padma's maneuver. Calf is soft and nontender. 4 views of the left knee reveals hardware within the tibial plateau. There is mild depression of the tibial plateau centrally. Likely degenerative changes noted within the lateral joint compartment. No evidence of fracture. Impression:Left knee pain and deformity Plan:Discussed the knee today as well as treatment for this. I do believe that the patient will likely benefit from a knee brace to provide support and stability for her knee. Did have a discussion with the patient today about possible hardware removal and potential knee replacement surgery in the future for correction of deformity as well as treatment of likely arthritis in her knee. I did offer a cortisone injection today which the patient declined. Off her anti-inflammatory medication which the patient agreed to. Patient given a prescription for meloxicam to utilize once daily. Advised not utilize any other anti-inflammatory medications while she is taking this Patient states that she has upcoming surgery for hardware removal of her shoulder. She will think about having hardware removal of her knee in the future. Carlos Pan PA-C [address] [facility] [address], [place], [address], [facility] 01/02/2024 10:31:28 OBGyn Episode No OBEpisode recorded.
--- OUTSIDE RECORDS SUMMARY | 2024-12-22 12:47 | XMS_ITS ---
Author Organization [facility] on Care Team Providers Care Fuel Technician Name Role Phone Maryse Morales Unavailable Unavailable Jhoana Michael Unavailable Unavailable Carey Wharton Unavailable Unavailable Aimee Esqueda Unavailable Unavailable Lynsey Perez Unavailable Unavailable Nano White Unavailable Unavailable Allergies and adverse reactions Code CodeSystem Substance Reaction Severity StartDate Concern Status trace metals Mild 09/05/2022 active Thorazine Photosensitivit y (code- 79479997, SNOMED CT) Severe 09/05/2022 active 7984 RXNORM Penicillin Moderate 09/05/2022 active 68023 RXNORM Gabapentin Severe 09/05/2022 active 5108 RXNORM Cortisone Anaphylaxis (co de- 09702110, SNOMED CT) Severe 09/05/2022 active adhesive bandage Moderate 09/05/2022 active Care Team Name Role Address Phone Organization Dates Carey Wharton PCP [address] [place] [address], [place], [address], [place] (Office): : [facility] 09/05/2022 - 09/06/2022 Maryse Moarles Attending Physician [address] [place], [address], [place] (Office): [phone] [facility] 09/05/2022 - 09/06/2022 Jhoana Michael Attending Physician [address] [place], [address], [place] (Office): [facility] 09/05/2022 - 09/06/2022 Aimee Esqueda Attending Physician [address] [place], [address], [place] (Office): [facility] 09/05/2022 - 09/06/2022 Lynsey Perez Attending Physician [address] [place], [address], [place] (Office): [facility] 09/05/2022 - 09/06/2022 Nano White Attending Physician [address] [place], [address], [place] (Office): : [facility] 09/05/2022 - 09/06/2022 Immunizations Immunization Status Vaccine Details Vaccine Code CodeSystem Smith e Notes TB 1 Step Mantoux (PPD) completed tuberculin skin test; unspecified formulation lotNumber: [id number] expiry: 02/21/2025 Mfg: PiCloud Given 0.1 ml Right Forearm intradermally 98 CVX created date: 09/06/2022 consent date: 09/06/2022 administere d date: 09/06/2022 SARS-COV-2 (COVID-19) completed SARS-COV-2 (COVID-19) vaccine, vector non-replicating, recombinant spike protein-Ad26, preservative free, 0.5 mL Mfg: [employer] Step 1 of Multi-step 212 CVX created date: 09/05/2022 administere d date: 01/02/2021 SARS-COV-2 (COVID-19 BOOSTER) completed SARS-COV-2 (COVID-19) vaccine, mRNA, spike protein, LNP, preservative free, 50 mcg/0.5 mL dose Mfg: Modernandrade 221 CVX created date: 09/05/2022 administere d date: 08/21/2021 Mental Status Section Date Assessment Total Score Description 09/06/2022 BIMS 14 cognitively int act CAM 0 No delirium ind icated PHQ-9 01 minimal depress ion Problems Problem # Description Date of onset Resolved Date Code CodeSystem Concern Status 1 ANXIETY DISORDER, UNSPECIFIED 09/05/[address] active 2 ATHEROSCLEROTIC HEART DISEASE OF ELEM CORONARY ARTERY WITHOUT ANGINA PECTORIS 09/05/[address] active 3 HYPERLIPIDEMIA, UNSPECIFIED 09/05/[address] active 4 HYPOTHYROIDISM, UNSPECIFIED 09/05/[address] active 5 INFRARENAL ABDOMINAL AORTIC ANEURYSM, WITHOUT RUPTURE 09/05/[address] active 6 MAJOR DEPRESSIVE DISORDER, RECURRENT, UNSPECIFIED 09/05/[address] active 7 OTHER SPECIFIED FRACTURE OF UNSPECIFIED PUBIS, SUBSEQUENT ENCOUNTER FOR FRACTURE WITH ROUTINE HEALING 09/05/[address] active 8 PERIPHERAL VASCULAR DISEASE, UNSPECIFIED 09/05/[address] active 9 UNSPECIFIED FRACTURE OF SHAFT OF HUMERUS, LEFT ARM, SUBSEQUENT ENCOUNTER FOR FRACTURE WITH ROUTINE HEALING 09/05/[address] active Reason for Referral No Reasons for Referral Entered Social History Social History Observation Description Start Date End Date Code Code System Current Smoking Status Tobacco smoking consumption unknown 337651018 SNOMED CT Sex Assigned At Female 1955 63512-0 [facility] Vital Signs Code Code System Vitals Name Values and Units Timing Information 92372-9 LOINC Pain Level Value=10.0 09/06/2022 85916-8 LOINC Weight Value=89.0 Units=Lbs 08/23 8302-2 LOINC Height Value=57.0 Units=Inches 09/06/2022 9279-1 LOINC Respiratory Rate Value=17.0 Units=/m in 09/05/2022 8462-4 LOINC Blood Pressure-Diastolic Value=71 Un its=mmHg 09/05/2022 8480-6 LOINC Blood Pressure-Systolic Jgnib=488 Un its=mmHg 09/05/2022 8310-5 LOINC Body Temperature Value=97.9 Units=?? F 09/05/2022 8867-4 LOINC Heart rate Value=55.0 Units=/min 08802-5 [facility] O2 % BldC Oximetry Value=96.0 Units= % 09/05/2022
--- OUTSIDE RECORDS SUMMARY | 2024-12-22 12:47 | XMS_ITS | Clinical Summary ---
Author Organization [facility] Address [address] [place] [address] Phone Care Team Providers Care Applications Administrator Name Role Phone John Melendez MD Primary Care Provider [phone] Allergies Active Allergy Reactions Criticality Noted Date Comments Adhesive 08/22/2018 Severe skin irritation per pt Gabapentin 06/22/2014 Severe adverse reaction Nickel 12/20/2016 Penicillin G Potassium 01/15/2007 unknown reaction Swhspmo-Lpy-Gzg Reductase Inhibitors 08/25/2018 trouble swallowing pills Medications cholecalcifer ol (VITAMIN D-3) 25 mcg (1,000 unit) capsule Take 2,000 Int'l Units by mouth daily. 07/17/20 23 Active diclofenac (VOLTAREN) 1 % topical gel Apply 4 g topically 4 times daily. 06/27/20 23 Active ferrous sulfate 325 mg (65 mg elemental iron) tablet Take 1 Tablet by mouth daily. 07/03/20 24 025 Active oxyCODONE-sanchez taminophen (PERCOCET) 5-325 mg per tablet TAKE 1 TO 2 TABS EVERY 6 HOURS NEEDED FOR SEVERE PAIN (DO NOT DRIVE WHILE TAKING THIS MEDICATION 05/24/20 23 Active zolpidem (AMBIEN) 10 mg tablet TAKE 1 TABLET BY MOUTH EVERY DAY AT BEDTIME NEEDED FOR 30 DAYS 07/05/20 23 Active MAGNESIUM OXIDE ORAL Take 1 Tablet by mouth daily. 09/06/20 22 Active levothyroxine (SYNTHROID, LEVOTHROID) 50 mcg tablet TAKE 1 TABLET BY MOUTH ONCE DAILY *PATIENT NEEDS APPOINTMENT FOR FURTHER REFILLS* 90 tablet 2 10/26/19 25 Active alendronate (FOSAMAX) 70 mg tablet TAKE 1 TABLET BY MOUTH ONCE WEEKLY 12 tablet 3 10/26/19 25 Active venlafaxine XR (EFFEXOR-XR) 37.5 mg 24 hr capsule TAKE 1 CAPSULE BY MOUTH ONCE DAILY *PATIENT NEEDS APPOINTMENT FOR FURTHER REFILLS* 90 capsule 2 10/26/19 25 Active omeprazole OTC (PriLOSEC OTC) 20 mg EC tablet TAKE 1 TABLET BY MOUTH ONCE DAILY 90 tablet 3 10/26/19 25 Active cloNIDine (CATAPRES) 0.1 mg tablet TAKE 1 TABLET BY MOUTH EVERY DAY 90 tablet 3 10/26/19 25 Active omeprazole (PriLOSEC) [address] capsule TAKE 1 CAPSULE BY MOUTH EVERY DAY 90 capsule 1 10/26/19 25 Active ezetimibe (ZETIA) 10 mg tablet TAKE 1 TABLET BY MOUTH ONCE DAILY 30 tablet 12/12/19 25 Active amLODIPine (NORVASC) 5 mg tablet TAKE 1 TABLET BY MOUTH DAILY 90 tablet 12/17/19 25 Active apixaban (Eliquis) 5 mg tablet Take 1 tablet (5 mg total) by mouth 2 (two) times a day. 90 tablet 2 12/18/19 25 025 Active amLODIPine (NORVASC) 5 mg tablet Take 1 Tablet by mouth daily. 05/18/20 24 025 Discontinued ezetimibe (ZETIA) 10 mg tablet TAKE 1 TABLET(S) BY MOUTH 1 TIMES PER DAY *NEW PRESCRIPTION REQUEST* 30 tablet 10/20/19 25 025 Discontinued Eliquis 5 mg tablet TAKE 1 TABLET BY MOUTH ONCE DAILY *PATIENT NEEDS APPOINTMENT FOR FURTHER REFILLS* 90 tablet 2 10/26/19 25 025 Discontinued(Kole wilson) Active Problems Problem Noted Date Diagnosed Date Prediabetes 07/18/2023 Cocaine dependence in remission 07/17/2023 Overview (09/24/2024): last use in the last use in the 1980s Depressive disorder 07/17/2023 Nephrolithiasis 06/27/2020 Hypothyroidism 06/01/2020 Left renal mass 11/26/2019 Overview (09/24/2024): Concern for malignancy, Dr. Quarles recommends follow-up ultrasound and repeat urology visit in January 2020 Left ureteral calculus 11/19/2019 Overview (09/24/2024): Associated with sepsis, admitted [facility] 10/25/2019 Osteoporosis 07/03/2019 Overview (09/24/2024): T score -2.7 lumbar spine, -4.1 right hip, 04/10/2019 Fracture of femoral neck, left, closed 9 Overview (09/24/2024): Left hip hemiarthroplasty, Dr. Malone, 02/10/2019 Atherosclerosis of both carotid arteries 018 CKD (chronic kidney disease) stage 3, GFR 30-59 ml/min 07/25/2018 Scoliosis 08/03/2016 Insomnia 05/29/2016 Claudication 05/26/2015 Overview (09/24/2024): Admitted [facility] 05/12/2015, thrombectomy left aortofemoral graft, Thrombectomy left femoral bypass Bovine pericardial patch B12 deficiency 11/22/2013 Hypertension 08/25/2010 Hypercholesteremia 01/26/2010 Sacroiliac pain 07/28/2008 GE reflux 07/29/2007 Myofascial pain 07/29/2007 Overview (09/24/2024): Followed by pain clinic, on fentanyl patch, has used percocet off the streets TIA (transient ischemic attack) 07/29/2007 Overview (09/24/2024): 1982, 1983 Abnormal glandular Papanicolaou smear of cervix 01/15/2007 Overview (09/24/2024): had cone biopsy 1993 Abdominal aneurysm 01/15/2007 Overview (09/24/2024): repaired age 49 IMO update Lumbosacral spondylosis without myelopathy 01/15 Encounters Date Type Department Care Team Description 12/18/2024 Telephone Adult Medicine [facility] [address] [place] [phone] Courtney Hinojosa MA Provider Call Back 12/01/2024 Telephone Adult Medicine [address] [phone] John Melendez MD PHARMACY from Last 3 Months Immunizations Name Administration Dates Next Due Influenza Quadravalent, MDCK , 0.5ml, preservative free (Flucelvax) 6mo and older 06/15/2021,07/27/2020,09/08/2019,09/25 Influenza trivalent, 0.5mL ( Fluad) 65yo and older 07/23/2023,07/10/2022 Pneumococcal polysaccharide 23 valent (Pneumovax 23) 2yo and older 07/03/2019 Td Tetanus diptheria (Tdvax) 7yo and older 07/10/2022 Tdap Tetanus diptheria acell ular pertussis (Boostrix; Adacel) 7yo and older 07/29/2007 Surgical History Surgery Date Site/Laterality Comments OTHER SURGICAL HISTORY PROCEDURE: HISTORICAL AAA REPAIR OTHER SURGICAL HISTORY 1979 PROCEDURE: OK STRABISMUS RECESSION/RESCJ 1 HRZNTL [facility]; COMMENT: strabismus repair VENTRAL HERNIA REPAIR 2005 PROCEDURE: HISTORICAL VTRL WALL HERNIA RE BUNIONECTOMY 2001 PROCEDURE: OK CORRJ HLX VLGS BNCTY SESMDC W/DOUBLE OSTEOTOMY; COMMENT: left COLONOSCOPY 07/15/09 PROCEDURE: HISTORICAL COLONOSCOPY; COMMENT: aborted in sigmoid because of poor bowel prep. OTHER SURGICAL HISTORY 02/01 PROCEDURE: MAMMOGRAM Medical History Medical History Date Comments Lumbosacral spondylosis with out myelopathy 01/15/2007 DX:Lumbosacral spondylosis w ithout myelopathy Abdominal aneurysm without m ention of rupture 01/15/2007 DX:Abdominal aneurysm withou t mention of rupture; COMMENT: repaired age 49 Abnormal glandular Papanicol aou smear of cervix 01/15/2007 DX:Abnormal glandular Papani colaou smear of cervix; COMMENT: had cone biopsy 1993 Anemia, unspecified DX:Anemia, u nspecified Anxiety state, unspecified DX:An xiety state, unspecified Peripheral vascular disease (CMS/HCC) 07/29/2007 DX:Peripheral vascular disease (HCC); COMMENT: Left leg bypass 2004, revised 2005 TIA (transient ischemic attack) 07/29/2007 DX:TIA (transient ischemic attack); COMMENT: 1982, 1984 Cerebrovascular disease, unspecified 01/17/2007 DX:Cerebrovascular disease, unspecified Myofascial pain 07/29/2007 DX:Myofascial pa in; COMMENT: Followed by pain clinic Sacroiliac pain 07/28/2008 DX:Sacroiliac pa in Hypercholesteremia 01/26/2010 DX:Hyperchole steremia Hypertension 08/25/2010 DX:Hypertension Abnormal glandular Papanicol aou smear of cervix 01/15/2007 DX:Abnormal glandular Papani colaou smear of cervix B12 deficiency 11/22/2013 DX:B12 deficienc y Lumbosacral spondylosis with out myelopathy DX:Lumbosacral spondylosis w ithout myelopathy Family History Medical History Relation Name Comments No Known Problems Brother 1 no contact with family No Known Problems Brother 2 No Known Problems Brother 3 Other: pancreas cancer Father 76, alcohol abuse, CVA No Known Problems Half-Sister Other: pneumonia Mother 49 Drug abuse Sister Relation Name Status Comments Brother 1 Alive Brother 2 Brother 3 Father Half-Sister Alive Mother Sister Social History Tobacco Use Types Packs/Day Years [...] on file Sexual Orientation Not on file Obstetrics History Last Filed Vital Signs Vital Sign Reading Time Taken Comments Blood Pressure 114/82 2024 10:18 AM EDT Pulse 79 2024 10:18 AM EDT Temperature - - Respiratory Rate - - Oxygen Saturation - - Inhaled Oxygen Concentration - - Weight 38.9 kg (85 lb 12.8 oz) 2024 10:18 AM EDT Height 144.8 cm (4' 9 ) 2024 10:18 AM EDT Body Mass Index 18.57 2024 10:18 AM EDT Plan of Treatment Health Maintenance Due Date Last Done Comments Breast Cancer Screening 1955 Zoster Vaccines (1 of 2) 2007 RSV Immunization Patients 60+ Years Old (1 - Risk 60-74 years 1-dose series) 2017 Pneumococcal Vaccine: 50+ Years (2 of 2 - PCV) 07/03/2020 07/03/2019 Colorectal Cancer Screening: Colonoscopy 09/01/2022 07/15/2009 Depression Screening 09/01/2022 Falls Risk Assessment 09/01/2022 Medicare Annual Wellness Visit 09/01/2022 Social Influencers of Health Screening 09/01/2022 Hypertension/CHF/CAD Annual BMP Blood Test 09/02/2022 COVID-19 Vaccine (3 - season) 2024 08/21/2021, 01/02/2021 Influenza Vaccine (Season Ended) 2025 07/23/2023, 07/10/2022, 06/15/2021, Additional history exists Cholesterol Screening (Lipid Panel) 12/25/2028 12/26/2023 DTaP,Tdap,and Td Vaccines (3 - Td or Tdap) 07/10/2032 07/10/2022, 07/29/2007 Osteoporosis Screening (Bone Density Screening) 12/09/2033 12/10/2023, 04/10/2019 Hepatitis C Screening Completed 11/09/2013 HIB Vaccines Aged Out No longer eligi ble based on patient's age to complete this topic HPV Vaccines Aged Out No longer eligi ble based on patient's age to complete this topic Hepatitis A Vaccines Aged Out No long er eligible based on patient's age to complete this topic Hepatitis B Vaccines Aged Out No long er eligible based on patient's age to complete this topic IPV Vaccines Aged Out No longer eligi ble based on patient's age to complete this topic MMR Vaccines Aged Out No longer eligi ble based on patient's age to complete this topic Meningococcal ACWY Vaccine Aged Out N o longer eligible based on patient's age to complete this topic Meningococcal B Vacine Aged Out No lo nger eligible based on patient's age to complete this topic RSV Immunization Patients Under 20 months Aged Out No longer eligible based on patient's age to complete this topic Varicella Vaccines Aged Out No longer eligible based on patient's age to complete this topic Procedures Procedure Name Priority Date/Time Associated Diagnosis Comments LIPID PANEL Routine 12/26/2023 DXA BONE DENSITY STUDY 1+ SITS AXIAL SKEL Routine 12/10/2023 9:31 AM EDT Encounter for screening for osteoporosis Displaced simple supracondylar fracture without intercondylar fracture of left humerus, subsequent encounter for fracture with routine healing Other specified fracture of left pubis, subsequent encounter for fracture with routine healing HEPATITIS C SCREENING Routine 11/09/2013 COLONOSCOPY Routine 07/15/2009 from Last 3 Months or Most Recently Relevant to Health Maintenance Results * (ABNORMAL) Lipid panel (12/26/2023) LDL/HDL Ratio 4 0 - 4 Triglycerides 190(A) 0 - 150 mg/dL Cholesterol 191 0 - 200 mg/dL HDL 44 >=40 mg/dL LDL Cholesterol 109(A) 0 - 100 mg/dL Blood Venous blood specimen / Unknown Historical Provider LAB BLOOD ORDERABLES Kristin l Result * DXA BONE DENSITY STUDY 1+ SITS AXIAL SKEL (12/10/2023 9:31 AM EDT) Anatomical Region Laterality Modality Bone Densitometr y 10/12/2022 1:55 PM EST Narrative 12/10/2023 6:16 PM EDT Clinical history: menopausal/postmenopausal disorder Scans of the lumbar spine and hips were performed on a [employer] fan beam bone densitometer. ? Bone mineral density measurements and associated T and Z scores respectively are as follows: Lumbar Spine: L1-L4, levoscoliosis of the lumbar spine BMD: 0.663 g/cm2 ? T-Score: -3.5 ? Z-Score: -1.6 Compared with the prior study dated 04/10/2019, the BMD reading has increased which is statistically significant Left Proximal Femur: Neck BMD: 0.272 g/cm2 ? T-Score: -4.3 ?? Z-Score: -2.7 Total BMD: 0.428 g/cm2 ? T-Score: -4.2 ?Z-Score: -2.9 Compared with the prior study the mean BMD reading in the total left hip has decreased which is statistically significant Compared with standards for the young adult, lowest measured bone density places the patient in the W.H.O. osteoporotic range. IMPRESSION: IMPRESSION: Osteoporosis. The NOF guidelines recommend that FDA approved medical therapies be considered in postmenopausal women and men age >50 years with a: i. Hip or vertebral (clinical or morphometric) fracture ii. T score of < -2.5 at the spine or hip iii. 10 year fracture probability by FRAX of >3% for hip fracture, or >20% for major osteoporotic fracture PLEASE NOTE: ?? W.H.O. classification is based on lowest measured density at the spine, femoral neck, or total hip.This classification has prognostic significance when applied to post menopausal women and older men. 1) ??The World Health Organization defines low BMD as follows: ?T-score ? Normal ? at or > -1 Osteopenia ? < -1 and ??> - 2.5 Osteoporosis ? at or < -2.5 without fractures Established osteoporosis ? < -2.5 with fractures Procedure Note Susie Ratliff MD - 05/11/2024 Clinical history: menopausal/postmenopausal disorder Scans of the lumbar spine and hips were performed on a [employer] beam bone densitometer. Bone mineral density measurements and associated T and Z scoresrespectively are as follows: Lumbar Spine: L1-L4, levoscoliosis of the lumbar spine BMD: 0.663 g/cm2 T-Score: -3.5 Z-Score: -1.6 Compared with the prior study dated 04/10/2019, the BMD reading hasincreased which is statistically significant Left Proximal Femur: Neck BMD: 0.272 g/cm2 T-Score: -4.3 Z-Score: -2.7 Total BMD: 0.428 g/cm2 T-Score: -4.2 Z-Score: -2.9 Compared with the prior study the mean BMD reading in the total left hiphas decreased which is statistically significant Compared with standards for the young adult, lowest measured bone densityplaces the patient in the W.H.O. osteoporotic range. IMPRESSION: IMPRESSION: Osteoporosis. The NOF guidelines recommend that FDA approved medical therapies beconsidered in postmenopausal women and men age >50 years with a: i. Hip or vertebral (clinical or morphometric) fracture ii. T score of < -2.5 at the spine or hip iii. 10 year fracture probability by FRAX of >3% for hip fracture, or >20%for major osteoporotic fracture PLEASE NOTE: W.H.O. classification is based on lowest measured density at the spine,femoral neck, or total hip.This classification has prognostic significance when applied to postmenopausal women and older men. 1) The World Health Organization defines low BMD as follows: T-score Normal at or > -1 Osteopenia < -1 and > -2.5 Osteoporosis at or < -2.5 withoutfractures Established osteoporosis < -2.5 with fractures John Melendez MD IM DXA PROCEDURES Final Result * Hepatitis C Screening (11/09/2013) [facility] Hepatitis C Screening abstracted Historical Provider HEALTH MAINTENANCE Final Result * Colonoscopy (07/15/2009) [facility] Colonoscopy abstracted, no interpretation Anatomical Region Laterality Modality Other Result [facility] Historical Tristen URIAS HEALTH MAINTENANCE Final Result from Last 3 Months or Most Recently Relevant to Health Maintenance Insurance [facility] MEDICARE Member Subscriber Plan / Payer (Ef fective 2019-Present) Name:Annalise Young Relation to Subscriber:Self Name:Annalise Young Payer ID:[id number] Group ID:[id number] Type:Not on file Address: [place] [address] [address] [place] [id number] Care Teams Applications Administrator Relationship Specialty Start Date End Date John Melendez MD PCP - General Internal Medicine 05/19/20
--- OUTSIDE RECORDS SUMMARY | 2024-12-22 12:47 | XMS_ITS | Patient Health Record ---
Author Organization [facility] devorah Tonio Address [address] [place] [address] Care Team Providers Care Superintendent [employer] Name Role Phone Al URIAS, Aaron Primary Care Provider Cory Guardado Unavailable [phone] Reason For Referral No Information Plan Of Treatment No Information Insurance Providers Payer Name Payer Address Payer Phone Subscriber Number Group Number Insured Name Patient Relationship to Insured Coverage Start Date Coverage End Date [facility] [employer] Claims [address] [place] [id number] Annalise Young Self - patient is the insured
--- OUTSIDE RECORDS SUMMARY | 2024-12-22 12:47 | XMS_ITS | Encounter Summary ---
Author Organization [facility] Address [address] [place] [address] Care Team Providers Care Fur Mixer Name Role Phone John Melendez MD Primary Care Provider [phone] Reason for Visit * Reason Onset Date Comments PHARMACY 12/01/2024 Encounter Details Date Type Department Care Team ([facility] st Contact Info) Description 12/01/2024 Telephone Adult Medicine [facility] [address] [place] [phone] John Melendez MD [address] [place] [phone] PHARMACY Social History Tobacco Use Types Packs/Day Years [...] as of this encounter Progress Notes * Courtney Hinojosa MA - 12/17/2024 1:46 PM EDT [email or web address] is still awaiting for the new Rx for Eiquis 5 mg twice a day.. phone#[phone] Please advise * Sherron Johnson - 12/01/2024 1:44 PM EDT Medication Problem: What is the name of the medication patient is having a problem with?: liquis 5 mg tablet 90 tablet 2 10/26/2024 -- Sig: TAKE 1 TABLET BY MOUTH ONCE DAILY *PATIENT NEEDS APPOINTMENT FOR FURTHER REFILLS* Sent to pharmacy as: Eliquis 5 mg tablet (apixaban) E-Prescribing Status: Receipt confirmed by pharmacy (10/26/2024 8:20 AM EST) What is the problem?: calling for clarification on directions Who is calling about the problem? : George (pharmacist) Is this a NEW medication?: How long has the patient been taking this medication? Who prescribed this medication for the patient? John Melendez MD Who is patients PCP?: John Melendez MD Payor: [facility] MEDICARE / Plan: [facility] CARE / Product Type: *No Product type* / documented in this encounter Plan of Treatment Not on file documented as of this encounter Visit Diagnoses Not on filedocumented in this encounter Care Teams Fur Mixer Relationship Specialty Start Date End Date John Melendez MD PCP - General Internal Medicine 05/19/20 documented as of this encounter
--- OUTSIDE RECORDS SUMMARY | 2024-12-22 12:47 | XMS_ITS ---
Author Organization [facility] Care Team Providers Care Ingot Stripper Name Role Phone Jose Smith Unavailable Unavailable Salome Levy Unavailable Unavailable Allergies and adverse reactions Code CodeSystem Substance Reaction Severity StartDate Concern Status 340078763 SNOMED CT Penicillins Itching of skin (code- 638424962, SNOMED CT) Moderate 02/12/2019 active 2403 RXNORM Chlorpromazine Nausea (code- 486949235, SNOMED CT) Moderate 02/12/2019 active Care Team Name Role Address Phone Organization Dates Jose Smith PCP [address], [address], [facility] (Office): : [facility] 02/12/2019 - 02/23/2019 Salome Levy Attending Physician [address], [address], [facility] (Office): [facility] 02/12/2019 - 02/23/2019 Immunizations Immunization Status Vaccine Details Vaccine Code CodeSystem Date Notes Influenza cancelled Influenza, split virus, trivalent, injectable, contains preservative 141 CVX created date: 9 consent date: 9 refused even after educationunder 65 TB 2 Step Mantoux Skin Test completed tuberculin skin test; unspecified formulation lotNumber: [id number] expiry: 02/20/2019 Mfg: [employer] cc Given 0.1 ml Left Forearm intradermally Step 1 of Multi-step with next step required 98 CVX created date: 9 consent date: 9 administe red date: 9 PCV13 (Pneumococcal Conjugate)Vacc ine cancelled pneumococcal conjugate vaccine, 13 valent 133 CVX created date: 9 consent date: 9 refused even after educationunder 65 Mental Status Section Date Assessment Total Score Description 02/23/2019 BIMS 15 cognitively int act CAM 0 No delirium ind icated PHQ-9 15 moderately tucker re depression 02/19/2019 BIMS 15 cognitively int act CAM 0 No delirium ind icated PHQ-9 00 Problems Problem # Description Date of onset Resolved Date Code CodeSystem Concern Status 1 ABDOMINAL AORTIC ANEURYSM, WITHOUT RUPTURE 02/12/[address] active 2 ACUTE EMBOLISM AND THROMBOSIS OF UNSPECIFIED DEEP VEINS OF UNSPECIFIED LOWER EXTREMITY 02/12/[address] active 3 ANEMIA, UNSPECIFIED 02/12/[address] active 4 CHRONIC KIDNEY DISEASE, STAGE 2 (MILD) 02/12/[address] active 5 DISPLACED FRACTURE OF BASE OF NECK OF LEFT FEMUR, SUBSEQUENT ENCOUNTER FOR CLOSED FRACTURE WITH ROUTINE HEALING 02/12/[address] active 6 ENCOUNTER FOR OTHER SPECIFIED SURGICAL AFTERCARE 02/12/[address] active 7 ESSENTIAL (PRIMARY) HYPERTENSION 02/12/[address] active 8 LOW BACK PAIN 02/12/[address] act [place] 9 MAJOR DEPRESSIVE DISORDER, RECURRENT, MODERATE 02/12/[address] active 10 MUSCLE WEAKNESS (GENERALIZED) 02/12/[address] active 11 OCCLUSION AND STENOSIS OF UNSPECIFIED CAROTID ARTERY 02/12/[address] active 12 OTHER ABNORMALITIES OF GAIT AND MOBILITY 02/12/[address] active 13 OTHER LACK OF COORDINATION 02/12/[address] active 14 OTHER SPECIFIED PERIPHERAL VASCULAR DISEASES 02/12/[address] active 15 PAIN IN LEG, UNSPECIFIED 02/12/[address] active 16 PRESENCE OF LEFT ARTIFICIAL HIP JOINT 02/12/[address] active 17 PRIMARY INSOMNIA 02/12/[address] ac tive 18 TOBACCO USE 02/12/2019 Z72.0 ICD-10-CM active 19 UNSPECIFIED FALL, SUBSEQUENT ENCOUNTER 02/12/[address] active 20 UNSTEADINESS ON FEET 02/12/[address] active 21 WEAKNESS 02/12/[address] active Reason for Referral No Reasons for Referral Entered Social History Social History Observation Description Start Date End Date Code Code System Current Smoking Status Tobacco smoking consumption unknown 113241886 SNOMED CT Sex Assigned At Female 1955 69359-[address] [facility] Vital Signs Code Code System Vitals Name Values and Units Timing Information 06114-[address] [facility] Pain Level Value=9.0 02/23/2019 9279-[address] [facility] Respiratory Rate Value=18.0 Units=/m in 02/22/2019 8462-[address] [facility] Blood Pressure-Diastolic Value=68 Un its=mmHg 02/22/2019 8480-[address] [facility] Blood Pressure-Systolic Bcgrf=350 Un its=mmHg 02/22/2019 8310-[address] [facility] Body Temperature Value=97.4 Units=?? F 02/22/2019 8867-[address] [facility] Heart rate Value=84.0 Units=/min 10/2018 48870-[address] [facility] O2 % dC Oximetry Value=97.0 Units= % 02/22/2019 31912-[address] [facility] Weight Tabhj=356.3 Units=Lbs 8302-[address] [facility] Height Value=58.0 Units=Inches 02/12/2019
--- OUTSIDE RECORDS SUMMARY | 2024-12-22 12:48 | XMS_ITS ---
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 Generated for Ayaan huang/David/eTransmitting on:?12/22/2024 12:47 PM EDT
--- OUTSIDE RECORDS SUMMARY | 2024-12-22 12:48 | XMS_ITS | Data Portability ---
Author Organization [facility], Main Office Address [address] [facility] [address] [place] [address] Care Team Providers Care Checkering Machine Operator Name Role Phone YAHIR VALENTINE Primary Care Provider [phone] [facility] OTHER Assessment Encounter Date Assessment Date Assessment LastModified by Organization Details LastModified Time 02/19/2019 02/19/2019 Meds upon admit to MM: ambien 10 qhs , lovenox 50mg bid sq, lisinopril 5mg/day, oxycodone 5mg q 4 prn, senna qhs, apap 650mg q 6 prn, effexor 37.5 daily, coumadin 5mg/day. (New: oxycodone, lovenox) [email or web address] Not available 02/19/2019 09:24:13 02/23/2019 02/23/2019 Meds upon admit to MM: ambien 10 qhs , lovenox 50mg bid sq, lisinopril 5mg/day, oxycodone 5mg q 4 prn, senna qhs, apap 650mg q 6 prn, effexor 37.5 daily, coumadin 5mg/day. (New: oxycodone, lovenox) mkirouac Not available 02/23/2019 08:30:28 10/09/2023 10/09/202316: wbc 7.3, hgb 8.2, hct 27.1, na 142, K 4.6, BUN/Cr 1.2 [email or web address] Not available 10/09/2023 10:26:18 Plan of Treatment Reminders Order Date Submit Date Provider Last Modified By Organization Details Last Modified Time Details Appointments None record ed. Lab None record ed. Referral None record ed. Procedures None record ed. Surgeries None record ed. Imaging None record ed. Medication Orders zolpid em 10 mg tablet 2023 024 [facility] , [address] [place], [address], 4 10:25:44 bupren orphin e 15 mcg/ho ur weekly transd ermal patch 2023 024 [email or web address] [facility] , [address] [place] [address], [address], 4 15:59:23 oxycod one 5 mg tablet 2023 024 [facility] , [address] [place] [address], [address], 4 10:25:46 Eliqui s 2.5 mg tablet 2023 024 [facility][id number], [address] [facility], [place], [address], 4 16:01:59 Patient TargetsNo targets recorded. Patient Instructions Encounter Date Encounter Id Patient Instructions Last Modified By Organization Details Last Modified Time 02/23/2019 [id number] d/c home with meds and services. [facility]. [facility] 02/23/2019 08:32:51 Reason for Referral None Reported. Problems Name Problem SNOMED Code Status Onset Date Resolution Date Notes Provider Name and Address Organization Details Recorded Time Fracture of tibial plateau 799571160 Active 2020 ALANA ADAMES NP [address] [facility], [address], [place], [address], [facility] [employer] 14:56:51 Hypothyroidism 90448077 Active 2020 ALANA ADAMES NP [address] [facility], [address], [place], [address], [facility] [employer] [facility] 14:57:20 Gastroesophage al reflux disease without esophagitis 567677007 Active 2020 ALANA ADAMES NP [address] [facility], [address], [place], [address], [facility] 1 14:57:42 Blood coagulation disorder 63845339 Active 2020 ANNALISE MATTSON NP [address] [facility], [address], [place], [address], [facility] 1 09:54:08 Fracture of neck of femur 2580186 Active 2018 Shama Kirouac null, [place] - [facility] 9 09:41:45 Fall Active 2018 Shama Kirouac null, [place] - [facility] 9 09:42:39 Anemia 292521098 Active 2018 Shama Kirouac null, [place] - [facility] 9 09:42:48 Essential hypertension 53944241 Active 2018 Shama Kirouac null, [facility] 9 09:42:59 Chronic kidney disease 424818119 Active 2018 Shama Kirouac null, [facility] 9 09:43:05 Peripheral vascular disease 841186978 Active 2018 Shama Kirouac null, [facility] 9 09:43:11 Chronic back pain 932758162 Active 2018 Shama Kirouac null, [facility] 9 09:43:24 Primary insomnia 7298164 Active 2018 Jose Smith MD [address] [facility], [address], [place], [address], [facility] 9 08:36:17 Tobacco user 786149937 Active 2018 Jose Smith MD [address] [facility], [facility] [address], [place], [address], [facility] 9 08:45:03 Problem Notes None recorded. Medical Equipment None Reported. Allergies Allergen ID Allergen Name Allergen Category Reaction Reaction Severity Criticality Documentation Date Start Date Code Code System Note Provider Name and Address Organization Details Recorded Time 27240 chlorprom azine hydrochlo ride medicatio n Not available Not available Not available 06/28/2021 56968 8 RxNorm Not Available Not Available Not Available 60866 adhesive tape environme nt,medica tion Not available Not available Not available 06/28/2021 31440 UNK Not Available Not Available Not Available 08681 lisinopri l medicatio n Not available Not available Not available 06/28/2021 35757 RxNorm Not Available Not Available Not Available 49987 cortisone medicatio n Not available Not available Not available 10/09/2023 2878 RxNorm unabl e to walk Not Available Not Available Not Available 37434 gabapenti n medicatio n vomiting Not available Not available 10/09/2023 84152 RxNorm Not Available Not Available Not Available 80990 Product containin g penicilli n (product) medicatio n rash Not available Not available 10/09/2023 96425 8001 SNOMED Not Available Not Available Not Available Medications Name Sig Start Date Stop Date Status Note LastModified by Organization Details LastModified Time zolpidem 10 mg tablet Take 1 tablet as needed by oral route at bedtime for 14 days, for insomnia. 2023 active Not Available Not Available Not Avai lable oxycodone 5 mg tablet Take 1 tablet every 4 hours by oral route as needed for 14 days, for pain. 2023 active Not Available Not Available Not Avai lable Eliquis 2.5 mg tablet Take 1 tablet twice a day by oral route as directed for 7 days, for DVT prophylaxis . 2023 active Not Available Not Available Not Avai lable buprenorphin e 15 mcg/hour weekly transdermal patch Apply 1 patch every week by transdermal route as directed for 28 days, for pain. 2023 active Not Available Not Available Not Avai lable Vitals Date Recorded Heart rate Respiratory rate Body temperature Oxygen saturation Oxygen saturation in Arterial blood by Pulse oximetry Systolic blood pressure Diastolic blood pressure Provider Name and Address Organization Details Last Updated DateTime 82 /min 18 /min 96.6 [degF] 96 % 96 % 132 mm[Hg] 77 mm[Hg] ALANA ADAMES, YELENA [address] [facility], [address], [place], [address], [place] [facility] 1 15:01:01 Date Recorded Heart rate Respiratory rate Body temperature Oxygen saturation Oxygen saturation in Arterial blood by Pulse oximetry Systolic blood pressure Diastolic blood pressure Provider Name and Address Organization Details Last Updated DateTime 1 75 /min 18 /min 97.8 [degF] 94 % 94 % 128 mm[Hg] 70 mm[Hg] ANNALISE MATTSON NP [address] [facility], [address], [place], [address], [facility] [employer] 1 09:08:46 Social History Question Answer Notes LastModified by Organizat ion Details LastModified Time Tobacco Smoking Status Current Every Day Smoker Not Available [employer] 07/19/2020 03:13:22 Do You Have An Advance Directive? Yes Ok Intubate, Ivf, Hospital, No HD Or Art Nut Information not available 06/28/2021 What Is Your Code Status? DNR Information not available 06/28/2021 Do You Have A Medical Power Of Management Internship? Yes Invoked HCP 06/28 Information not available 06/28/2021 What Was The Date Of Your Most Recent Tobacco Screening? 06/28/2021 Information not available 06/28/2021 How Much Tobacco Do You Smoke? 1 PPW [id number] Information not available 07/19/2020 Has Tobacco Cessation Counseling Been Provided? Yes Nicotine Patch Information not available 06/28/2021 How Many Years Have You Smoked Tobacco? 30 [id number] Information not available 07/19/2020 Sex: Unknown Functional Status None recorded. Mental Status None recorded. Family History Relationship Description Onset Age of this Age Resolved Age Notes LastModified by Organization Details LastModified Time Father No current problems or disability [email or web address] Not available 02/13 09:26:05 Mother No current problems or disability [email or web address] Not available 02/13 09:26:05 Medical History No medical history recorded. Gynecological HistoryNo gynecological history recorded. Obstetrics History GPAL:G 0 P 0 0 0 0 Immunizations Vaccine Type Date Status Note Provider Nam e and Address Organization Details Recorded Time SARS-COV-2 (COVID-19) vaccine, UNSPECIFIED 1 completed Lena bhagat [facility] [employer] 10/09/2023 14:44:30 COVID-19, subunit, rS-nanoparticle+Mat rupesh-M1 Adjuvant, PF, 0.5 mL 4 completed [facility] [address] 12/13/2023 11:16:35 COVID-19, mRNA, LNP-S, bivalent, PF, 50 mcg/0.5 mL or 25mcg/0.25 mL dose 1 completed [facility] [address] 12/13/2023 11:16:46 zoster recombinant 4 completed [facility] [address] 12/13/2023 11:17:05 Influenza, adjuvanted, quadrivalent, PF 2 completed Zainab Castillo [facility] 12/13/2023 11:17:18 Influenza, adjuvanted, quadrivalent, PF 3 completed Zainab Castillo [facility] 12/13/2023 11:17:26 pneumococcal polysaccharide PPV23 9 completed Zainab Castillo [facility] 12/13/2023 11:17:37 Td (adult), 5 Lf tetanus toxoid, preservative free, adsorbed 2 completed Zainab Jonathan [facility] 12/13/2023 11:17:52 Tdap 7 completed Zainab [facility] 12/13/2023 11:18:04 Past Encounters Encounter ID Performer Location Encounter Start Date Encounter Closed Date Diagnosis/Indication Diagnosis SNOMED-CT Code Diagnosis ICD10 Code Diagnosis Note [id number] Shama CUMMINGS [address] [place] [address] 02/13/2019 09:24:48 03/05/2019 15:46:40 Fracture of neck of femur 3082270 S72.002D f/u with Dr. Schreiber chronic coumadin with lovenox bridge currently which covers for DVT P as well.WBAT with ww- Pt/OT.oxyc odone for pain prn. Fall W19.XXXD PT/OT gait training. Anemia 984328309 D64.9 no sx. d/t acute blood lossfollow h/h and transfuse prn. Essential hypertension 67516095 I10 stable on lisinopril . Chronic ki dney disease 312557503 N18.9 at baseline. follow bmp. Peripheral vascular disease 283937852 I73.9 stable, on chronic coumadin. Chronic back pain 386570 002 M54.9 stable, no sx currently. [id number] MD PATRICE Cuevas EMILIANO [address] [facility] [address] 02/18/2019 08:26:29 02/26/2019 16:21:12 Fracture of neck of femur 8043643 S72.042D see HPIleft femoral neck fractureun derwent surgical correction follow surgery recsPT OT Eval and treatloven ox for DVT prophylaxi smonitor for pain control and constipati on Anemia due to blood loss 843266995 D50.0 monitor cbc and need for tx Chronic ki dney disease 756558356 N18.2 carrying dxappears to be stage 2 at baselinemo nitor renal functionav oid nephro toxic meds as able Unsteady gait 023040964 R26.81 PT OT Eval and treatmonit or fall risk Essential hypertension 52245626 I10 lisinopril 5 mg qdmonitor bp and renal function in patient with crf at baseline Peripheral vascular disease 882306916 I73.89 vascular dx known at baselinewi th hx of fem bypassadde d to PMH Primary insomnia 1409669 F51.01 see HPIquestio n if fall related to utilizatio n of ambienmoni tor sx control at facilitypa tient does not feel fall was secondary to ambien Tobacco user 576643161 Z 72.0 currently smoking 1 pp weekdiscus sed quitting [id number] Shama Nava PATRICE CUMMINGS [address] [place] [address] [place] [address] 02/19/2019 09:21:59 03/24/2019 15:22:11 Fracture of neck of femur 3574734 S72.002D f/u with Dr. Schreiber chronic coumadin with lovenox bridge currently which covers for DVT P as well.WBAT with ww- Pt/OT.oxyc odone for pain prn. Fall W19.XXXD PT/OT gait training. She demonstrat ed need for WW secondary to strength deficits and associated fall risk. Other assistive devices have been trialed without success. 2 wheeled walker offers best support for gait completion . Anemia 127215226 D64.9 no sx. d/t acute blood lossfollow h/h and transfuse prn. Essential hypertension 07528269 I10 stable on lisinopril . Chronic ki dney disease 709540998 N18.9 at baseline. follow bmp. Peripheral vascular disease 274497846 I73.9 stable, on chronic coumadin. Chronic back pain 331794 002 M54.9 stable, no sx currently. [id number] Shama Brandy IBRAHIM EMILIANO [address] [place] [address] 02/23/2019 08:28:53 03/05/2019 16:25:11 Fracture of neck of femur 5084359 S72.002D f/u with Dr. Vero angeles to make appt prior to d/c for thison chronic coumadin which covers for DVT P as well.WBAT with ww- Pt/OT. Fall W19.XXXD completed sub acute PT/OT gait training. Anemia 399794045 D64.9 no sx. d/t acute blood lossfollow h/h and transfuse prn. Essential hypertension 61489195 I10 lisinopril stopped d/t recurrent hyperkalem ia. started norvasc. Chronic ki dney disease 027006788 N18.9 at baseline. follow bmp. Peripheral vascular disease 433408507 I73.9 stable, on chronic coumadin. Chronic back pain 391347 002 M54.9 stable, no sx currently. Hyperkalemia 30215320 E8 7.5 recurrent- will give kayexalate x1 today, d/c lisinopril and start norvasc in it's place. rx given for BMP for 02/26/19 with results to be faxed to Dr. Conroy. [id number] [facility] [place] [address] 06/28/2021 14:24:24 06/30/2021 10:22:17 Fracture of tibial plateau 619217589 S82.102A immobilize r at all timesortho [facility] weekD3 1999 dailyoxyco done 10 mg q6hr prn Hypothyroidism 78447183 E03.9 levothyrox ine 50 mg daily Tobacco user 160888457 Z 72.0 nicotine patch 14 mg daily Primary insomnia 9805137 F51.01 zolpidem 10 mg Essential hypertension 79212272 I10 amilodipin e 10 mg daily Fall W19.XXXD PT OT eval and treatfall precaution sfrequent safety checks Peripheral vascular disease 817597192 I73.9 coumadin dailyinr taper Gastroesop hageal reflux disease without esophagitis 960032151 K21.9 omeprazole 20 mg daily [id number] ANNALISE MATTSON NP [address] [address] 06/29/2021 09:07:33 07/03/2021 13:12:05 Fracture of tibial plateau 134220858 S82.102A Declining rehab here.Says she is going home today.Due to safety concerns, she will be going AMA.SS contacting [facility] and PCP re discharge. To have ortho follow up/surgery next weekimbhupendra artis at all timesusing oxy 10 q 6 prn for pain ,but will not be going home with this.Ortho contacted - awaiting call back to clarify coumadin use as d/c paperwork said to hold for upcoming surgery. ? lovenox in the mean time as surgery will not be until next week.If ortho does not call back prior to discharge, will instruct pt. to continue coumadin home dose and update ortho of this - if they would like it held and/or lovenox started, they can call pt. at home with further instructio ns. Hypothyroidism 09637338 E03.9 continue levothyrox ine 50 mg daily Tobacco user 191052748 Z 72.0 nicotine patch 14 mg dailysmoki ng cessation discussed/ encouraged Primary insomnia 5500350 F51.01 continue zolpidem 10 mg q HS Essential hypertension 46371684 I10 continue amilodipin e 10 mg dailyMonit or VS as outpt. Fall W19.XXXD PT OT eval and treatfall precaution sfrequent safety checks Peripheral vascular disease 390131441 I73.9 ? on coumadin dailymonit or CSM Gastroesop hageal reflux disease without esophagitis 336843388 K21.9 continue omeprazole 20 mg daily Blood coag ulation disorder 22885370 D68.9 Pt. unspecific re: clotting disorder A s above, ? coumadin/l ovenox use at home upon d/cCall placed to Ortho to clarify, awaiting call back. [id number] Lorene CORCORAN AT [address] [address] 10/09/2023 10:09:58 10/11/2023 09:43:35 Fracture of tibial plateau 073228682 S82.102A by hx Hypothyroidism 24027433 E03.9 levothyrox ine 50 mg dailymonit or TSH Tobacco user 617991700 Z 72.0 current everyday smokerplan s to quit when done current pack and transition to nicotine patch Primary insomnia 1355615 F51.01 zolpidem 10 mg qHS Essential hypertension 72066798 I10 amlodipine 5 mg dailyBMP UTDmonitor BP Fall 8422928 W19.XXXD by hxfall precaution sfrequent safety checks Peripheral vascular disease 139421648 I73.9 used to be on coumadinno w on eliquis 2.5mg BID x 7 days DVT prophlyaxi s Gastroesop hageal reflux disease without esophagitis 829430676 K21.9 omeprazole 20 mg daily History of total hip arthroplasty 8428672346 06 Z96.649 s/p left hip arthroplas ty with DR. Tapia [facility] 10/03/23eli sonia 2.5mg BID x 7 days for DVT prophylaxi soxycodone IR 5mg 1-2 tablets q4h PRN pain x 7 daysf/u NEOS in 2 weeksaquac el dressing in place. May shower with it and can be discontinu ed on POD #14 Hypomagnesemia 652441967 E83.42 mag 1.3 replaced during admissionm agox 400mg BID Hyperkalemia 61635046 E8 7.5 K 5.7 on POD #3normaliz ed with repeat Chronic ki dney disease 310419619 N18.9 Cr 1.2avoid nephrotoxi c agents Hyperlipidemia 93320988 E78.5 atorvastat in 40mg daily History of cocaine abuse 5817909247 34221 F14.11 buprenorph ine 15mg transderma l once weekly Chronic back pain 108937 002 M54.9 venlafaxin e ER 37.5mg dailymonit or pain Health Concerns Section Related Observation LastModified by Organization Detai ls LastModified Time None Recorded Concern Status LastModified by Organization Details LastModified Time None Recorded Advance Directives Directive Y: ok intubate, ivf, hospita l, no HD or art nut Payers Encounter Date Sequence Insurance Name Policy Number Policy Prieto Covered Member ID Prieto Member ID Guarantor Name 02/19/2019 1 [place] [employer] Annalise Young [id number] Annalise Young 02/19/2019 1 [place] Annalise Young [id number] Annalise Young 02/23/2019 1 [place] [employer] Annalise Young [id number] Annalise Young 02/23/2019 1 [place] [facility] Annalise Young [id number] Annalise Young 06/28/2021 1 [facility] - DOS PRIOR TO 2022 - DUAL ELIGIBLE (MEDICARE REPLACEMENT/AD VANTAGE - HMO) Annalise Young [id number] Annalise Young 06/29/2021 1 [facility] - DOS PRIOR TO 2022 - DUAL ELIGIBLE (MEDICARE REPLACEMENT/AD VANTAGE - HMO) Annalise Young [id number] Annalise Young 10/09/2023 1 [facility] - DOS ON OR AFTER 2022 - MEDICARE ADVANTAGE [place] (MEDICARE REPLACEMENT/AD VANTAGE - PPO) Annalise Young [id number] Annalise Young Notes Date Note Type Note Provider Name and Address Organization Details Recorded Time 02/19/2019 text/html This is a 63 y/o female admitted for rehab after hospitalization with L hip fx s/p ORIF by Dr. Denson. She is seen today for eval for wheeled walker per request of therapy. She demonstrated need for WW secondary to strength deficits and associated fall risk. Other assistive devices have been trialed without success. 2 wheeled walker offers best support for gait completion. PMH: HTN, HLD, CKD, PVD (on chronic coumadin), chronic back pain, h/o AAA. PSH: L foot bunion repair, R eye surgery, Abd hernia repair, cholecysetctomy, AAA and femoral bypass graft. Shama Brandy bhagat, [facility] 02/19/2019 10:20:57 02/23/2019 text/html This is a 63 y/o female admitted for rehab after hospitalization with L hip fx s/p ORIF by Dr. Denson. She did well here with rehab and is at her functional baseline. She is discharging home today. Her potassium came back elevated at 6.1 today. This is the second time since here. She has CKD history and is on lisinopril currently. No other medical issues while here. PMH: HTN, HLD, CKD, PVD (on chronic coumadin), chronic back pain, h/o AAA. PSH: L foot bunion repair, R eye surgery, Abd hernia repair, cholecysetctomy, AAA and femoral bypass graft. Shama Brandy bhagat, [employer] 02/23/2019 13:25:56 06/28/2021 text/html seen today for initial intake visit-66 yof admitted to [facility] for rehab after presenting to the hospital from home after a mechanical fall. it was unknown if she hit her head but CT was negative for acute process, Left ankle negative, knee positive for tibial plateau fracture, immobilizer in applied, needs to followup with ortho-[facility] in a week for surgery. CAOx1 sitting up in bed, left leg in an immobilizer, good cms and pp, she says the pain is excrutiating all the time, she has oxycodone for this. lungs clear, complains of left rib pain, will order xray for this, no bruising noted. ALANA ADAMES, YELENA [address] [facility], [address], [place], [address], [facility] 06/28/2021 15:23:33 06/29/2021 text/html Annalise is seen to day for discharge. She says she is going home today with support of SO whois also her HCP.Due to concern of safety at home, she will be going home AMA. Both her and her SO understand she therefore will not be going home with any meds or services.Case discussed with SS and nsg. SS to contact [facility] and PCP. 66 yof admitted to [facility] for rehab after presenting to the hospital from home after a mechanical fall. it was unknown if she hit her head but CT was negative for acute process, Left ankle negative, knee positive for tibial plateau fracture, immobilizer in applied, needs to followup with ortho-[facility] in a week for surgery. Per d/c paperwork coumadin be on hold for upcoming procedure. Per staff, declining to work with rehab. Requesting to go home today as she feels she will be more comfortable at home. Upon exam, she is awake, alert, in bed, NAD. Denies feeling weak or dizzy., no SOB, cough, CP. No GI or issues. Intake poor I'm not sure what they are giving me . Assures me she will eat and drink better when she goes home. Says she has not moved her bowels here, but says she's not eating much in the first place.Using oxycodone for pain which is helping. Some N/T in LLE at times. Immobilizer on, but loose as pt. loosened herself for comfort while in bed.On coumadin for AC due to clotting problems .Nsg. contacting Ortho this am to get AC use clarified - ?if pt. should continue or switch to lovenox until surgery. Pt. says she has given herself lovenox in the past and is comfortable doing this if needed at home. ANNALISE MATTSON NP [address] [facility], [address], [place], [address], [facility] [employer] 06/29/2021 12:44:15 10/09/2023 text/html patient is a 68 year old female who presents for initial intake visit (discharging today) PMH significant for anxiety, claudication, constipation, DDD, depression, diaphoresis, femoral-popliteal artery bypass graft, former smoker, GERD, TIA, HTN, HLD, external iliac stent, multiple joint pain, mechanical fall, neuropathic pain, PAD, peripheral ischemic vascular disease Presented to ED for left side hip pain. Previously underwent left hip hemiarthroplasty. X-ray demonstrates no evidence of loosening or fracture. s/p left hip arthroplasty by Dr. Tapia 10/03/23. Now here for PT/OT/STR Met with SW after initial intake completed, Patient and family requesting to discharge home today. Otherwise, no acute medical concerns. Only here for PT/OT/STR hopsital course uneventfulnoted elevated K 5.7 on POD #5; recheck normalmag 1.3 - replaced Mae is [address] [facility], [address], [place], [address], [facility] [employer] [facility] 10/09/2023 16:02:38 OBGyn Episode No OBEpisode recorded.
--- OUTSIDE RECORDS SUMMARY | 2024-12-22 12:48 | XMS_ITS ---
Author Organization [facility] Address [address] [place] [id number] Care Team Providers Care Supervisor Operations Name Role Phone Aaron Melendez MD Primary Care Provider Cory Guardado [facility] [phone] Encounters Encounter Location Date [facility] [address] [place] [phone] 10/02/2023 Cory Cortez Plan Of Treatment No Information Progress Notes * Maria L YOUNGOB:1955 (69 yo F)Acc No.[id number]:10/02/2023 Progress Notes Patient:?Annalise YOUNG Provider:?Cory Cortez DPM :1955???Age:68 Y???Sex:Female D ate:10/02/2023 Address:[address] [place] [address], [address] [place], [place] [id number] Pcp:Aaron Melendez MD Subjective: * Chief Complaints: * ??? * Medical History:? Objective: * Vitals:? Assessment: Plan: * Treatment: * Images: * The named appointment provid er may or may not be the originator of this progress note, and it is not deemed complete until electronically signed by the appointment provider. Sign off status: Pending * Provider:?Cory Cortez DPM Date:?2023 Generated for Ayaan huang/David/Ricksmitting on:?12/22/2024 12:47 PM EDT
== END 2024-12-22 10:37 | disposition home or self-care (01) ==
LOC: HO.LAB 10:36
PROVIDERS: PCP Internal Medicine; Visit Provider Surgery
DX: E87.5 Hyperkalemia (principal)
CPT/HCPCS: 36415; 80051

== ENCOUNTER 2025-03-25 10:08 | Outpatient (AMB) | payer OTHER, SELFPAY ==
--- NOTE | 2025-03-25 10:22 | MHC.OFFVIS ---
Intake Visit Reasons: f/u 6m Allergies Penicillins Allergy (Unknown, Verified 03/25/25 10:34) UNKNOWN amitriptyline Allergy (Verified 03/25/25 10:34) Unknown pregabalin (From Lyrica) Allergy (Verified 03/25/25 10:34) Unknown lisinopril (LISINOPRIL) Adverse Reaction (Intermediate, Verified 03/25/25 10:34) hyperkalemia (on multiple re-starts) see 02/09/19 admission adhesive tape Adverse Reaction (Verified 03/25/25 10:34) Redness of Skin gabapentin Adverse Reaction (Verified 03/25/25 10:34) Vomiting From Thorazine Allergy (Severe, Uncoded 03/25/25 10:34) HIVES Medication List - Last Reconciled 03/25/25 by Vibha Graves CNP amlodipine 5 mg PO DAILY apixaban (Eliquis) 2.5 mg PO BID ascorbic acid (vitamin C) (Vitamin C) 250 mg PO BID buprenorphine 15 mcg/hour 1 patch transdermal FR cholecalciferol (vitamin D3) (Vitamin D3) 50 mcg PO DAILY docusate sodium 100 mg PO BID PRN ezetimibe 10 mg PO DAILY ferrous sulfate 325 mg PO BID levothyroxine 1 tab PO DAILY@0600 magnesium oxide 400 mg PO BID metoprolol tartrate 12.5 mg (1/2 x 25 mg) PO BID omeprazole 1 cap PO DAILY oxycodone 2.5 mg (1/2 x 5 mg) PO Q6H PRN pramipexole 0.25 mg PO DAILY venlafaxine ER 37.5 mg PO DAILY zolpidem 10 mg PO BEDTIME HPI Comments Details: She was living with her long-term boyfriend who was also her TAL[employer] 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 Dizzy spells are better. She had issue with circulation to RLE after AAA stent and had revision last month with Dr. Shorty Rutherford at [facility]. She is scheduled for R TKR in 05/2025. Walking with walker, no recent falls. Has some joint pains in legs and shoulders. Has been without pramipexole, unclear if medication was not refilled when she switched pharmacies, and having more restlessness in legs. Sleep is better with zolpidem. She says she is unable to sleep without it. Was having some dizzy spells when laying down and turning her head to the right side in early 2024, lasting 30-60 seconds. It lasts 30-60 seconds. Had stent around 11/2024 with vascular surgery and says all medications were stopped during that time. Restlessness and cramping in legs were worse without medication. She went to arthritis clinic and was told she has early OA. Fell getting out of bed in 2023, broke right femur and right wrist and needed surgery for both. Apparently was told aneurysm behind heart in the aorta has gotten larger. RLS symptoms and spasms are better with medication. Sleep is better with zolpidem. She says following her head injury years ago, she sees and hears yeyo-knacks in her kitchen talk. Restless legs, involuntary movements in legs 11/2023, and spasms in legs. Says she has aneurysm behind her heart in the aorta. Joint pain. Few falls in last year with fractures, has osteoporosis. Has trouble sleeping. Stopped zolpidem in the past because of falls. Lunesta was tried by Dr. Conklin but did not help. Says she cannot see without her glasses. Subarachnoid hemorrhage from fall on 11/06/2019, hit her head and vomited. Had kidney stones treated surgically. s/p L THR 01/2019. Has left buttock pain going down left leg. Chronic diplopia since 1981. No more dizziness. No stroke or TIA. 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 Hypertension being treated. MRI 12/28/2015 shows minor microvascular disease. No significant old strokes to confirm her history of strokes. Ataxia and slurred speech are fine. PN pain is better. Tried gabapentin, pregabalin, amitriptyline, tramadol. Previously was on chronic narcotic therapy. Has vascular disease. Gives hx of strokes and TIAs in the past. Details not clear, going back as early as 1981. Another stroke-like episode in 2009. As a result of this she has had some double vision and some right peripheral visual field deficit. Back injection did not help. 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 Fibromyalgia Hypercholesterolemia Chronic pain disorder Peripheral neuropathy Restless leg syndrome Anemia History of cocaine abuse Former smoker Fracture of left tibial plateau Abdominal aortic aneurysm HTN (hypertension) PAD (peripheral artery disease) Surgical History (Updated 03/24/25 @ 16:32 by Keren Ortiz MA) H/O right wrist surgery S/P AAA repair S/P total left hip arthroplasty S/P femoral-femoral bypass surgery Family History (Updated 03/24/25 @ 16:33 by Keren Ortiz MA) Father Hypertension Social History Household Members: Significant Other Housing: Apartment Do you presently have visiting nurse or other home services: No Unable to assess alcohol history related to: Refusing to respond Alcohol intake: never Comment: 1:1 sitter Patient Tobacco Use Status: Former Tobacco user Advance Directives Date on File: 06/27/21 service: No Current occupational status: disabled 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 Review of Systems Const Denies chills, Denies daytime sleepiness, Reports difficulty sleeping, Denies fatigue, Denies fever(s), Denies frequent falls, Denies headache(s), Denies increased appetite, Denies poor appetite, Denies snoring, Denies weakness, Denies weight gain and Denies weight loss Eyes Denies loss of vision ENT Denies vertigo, Denies dizziness, Denies headache(s) and Denies neck pain Card Denies chest pain at rest, Denies chest pain with activity, Denies syncope, Denies leg edema, Denies palpitations, Denies dyspnea and Denies dyspnea on exertion Resp Denies cough, Denies dyspnea, Denies dyspnea on exertion and Denies snoring GI Denies abdominal pain, Denies constipation, Denies heartburn, Denies diarrhea and Denies nausea Denies urinary frequency, Denies urinary incontinence and Denies urinary urgency Musc Denies abnormal gait, Reports back pain, Reports myalgias, Reports arthralgias, Denies neck pain, Reports numbness, Denies stiffness and Reports tingling Neuro Denies abnormal gait, Denies vertigo, Denies dizziness, Denies syncope, Denies frequent falls, Denies headache(s), Denies lack of coordination, Denies loss of vision, Denies memory loss, Reports numbness, Denies Other visual disturbances, Reports restless legs, Denies seizure-like activity, Reports tingling, Denies paresthesias, Denies tremor(s) and Denies weakness Psych Denies anxiety, Denies depression, Denies memory loss, Denies visual hallucinations and Denies hallucinations Endo Denies fatigue and Denies palpitations Physical Exam Const Other: General Appearance:? normal, in no acute distress. Heart:? S1, S2 normal, no murmurs. Lungs:? clear anteriorly and posteriorly. Musculoskeletal:? normal. Extremities:? no edema. Psych:? alert, oriented, cognitive function intact, cooperative with exam. Neuro Other: Abnormal Neurological Findings:?walking with walker? Mental Status: alert and oriented X 3. Normal attention, orientation, memory, and affect. Cranial Nerves: Pupils are equal, round, and reactive to light. External ocular muscles are intact. Visual canales are full, no ptosis. Face is symmetrical, no facial weakness or droop. Facial sensations are normal. Tongue protrudes in midline. Palate elevates symmetrically. Shoulder shrugging is normal Motor Examination: Normal muscle tone, bulk and strength. No atrophy or fasciculations. No drift of the extended upper extremities. DTR 2+. Plantars are flexor. Straight Leg Raisin degrees. Sensory Exam: Normal light touch, temperature, pinprick, vibration, and joint-position sensations. Rhomberg sign is absent. Coordination: No ataxia. No titubation. Ftqzcx-[id number], zbib-deyj-fvll test, and rapid alternating movements were normal. Gait Exam: walking with walker Cerebellar Signs: Fjwhnm-[id number]-[id number] and hrqm-yr-[id number] is normal. No dysdiadochokinesia. Extrapyramidal System: No tremor, rigidity with normal facial expressions. No bradykinesia. No bradyphrenia. Normal arm swing and posture. No propulsion or retropulsion. Speech: Normal. No dysphasia or dysarthria. Assessment & Plan Assessment & Plan (1) Restless leg syndrome: Code(s): G25.81 - Restless legs syndrome Category: Medical Plan: Refilled pramipexole 0.25mg 1 tablet in the evening (2) Insomnia: Code(s): G47.00 - Insomnia, unspecified Category: Medical Qualifiers: Insomnia type: unspecified Qualified Code(s): G47.00 - Insomnia, unspecified Plan: Refilled zolpidem 10mg 1 tablet at bedtime (3) Peripheral neuropathy: Code(s): G62.9 - Polyneuropathy, unspecified Category: Medical Qualifiers: Peripheral neuropathy type: polyneuropathy, unspecified Qualified Code(s): G62.9 - Polyneuropathy, unspecified Plan: . (4) Nontraumatic subarachnoid hemorrhage: Code(s): I60.9 - Nontraumatic subarachnoid hemorrhage, unspecified Category: Medical Plan: . (5) Dizziness: Code(s): R42 - Dizziness and giddiness Category: Medical Plan: . Plan . Medications: New pramipexole administer 2 - 3 hours before bedtime 0.25 mg PO QPM 30 tabs 2RF 30 days zolpidem 10 mg PO BEDTIME 30 tabs 2RF 30 days Discontinued pramipexole Discontinued Reason: Order 0.25 mg PO DAILY zolpidem Discontinued Reason: Order 10 mg PO BEDTIME Coding Level of Care Code Est Pt Level 4 (15162) Diagnoses Restless leg syndrome G25.81 Insomnia, unspecified type G47.00 Insomnia type: unspecified Peripheral polyneuropathy G62.9 Peripheral neuropathy type: polyneuropathy, unspecified Nontraumatic subarachnoid hemorrhage I60.9 Dizziness R42
--- OUTSIDE RECORDS SUMMARY | 2025-03-25 10:50 | XMS_ITS | Data Portability ---
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 [email or web address] Not available 01/29/2024 13:08:31 05/20/2024 05/20/2024 CC [...] xrays pelvis and right hip two views [email or web address] Not available 05/20/2024 10:35:34 09/29/2024 09/29/2024 SUBJECTIVE [...] obtained, and reviewed by me today at [facility]: - Left shoulder, three views: Show proximal [...] 2. Right proximal femur, trochanteric fracture, status post-cephalomedulla ry fixation with routine healing. PLAN 1. Ongoing [...] right proximal femur fracture is progressing well. [email or web address] Not available 09/29/2024 09:56:07 01/27/2025 01/27/2025 SUBJECTIVE: CHIEF COMPLAINT: Follow up right intertrochanteric fracture status post cephalomedullary nail fixation. DOS 04/12/2024. HISTORY OF PRESENT ILLNESS: Patient reports no specific pain in the right lower extremity and continues to walk with walker assistance as was her baseline prior to injury. She reports no changes to her health status. OBJECTIVE: EXAMINATION: Right lower extremity shows active hip flexion, full knee extension and maintained normal limb alignment. IMAGING: X-rays ordered obtained and reviewed by me today at [facility] X-rays of pelvis and right hip, two views show the intertrochanteric femur fracture with evidence of consolidation. Maintained slightly increased valgus position with a short supple medullary nail in place. ASSESSMENT: Right femur intertrochanteric fracture healing PLAN: 1. Advance activity 2. Recheck as needed 3. No specific restrictions advised Not available 01/27/2025 12:59:13 Plan of Treatment Reminders Order Date Submit Date Provider Last Modified By Organization Details Last Modified Time Details Appointments None recorded. Lab None recorded. Referral None recorded. Procedures None recorded. Surgeries None recorded. Imaging XR, hip + pelvis, unilatera l, 2 or 3 view - 315 right hip 2v and ap pelvis low 2024 025 [email or web address] [facility], [address], [place], [address], 5 14:51:39 XR, hip + pelvis, unilatera l, 2 or 3 view - 313 2v right hip, ap pelvis, recheck 2024 025 [email or web address] [facility], [address], [address], [place], [address], 5 15:21:23 XR, shoulder, 2 or more view - 313 2v left shoulder recheck 2024 025 [email or web address] [facility], [address], [address], [place], [address], 5 15:21:23 XR, hip + pelvis, unilatera l, 2 or 3 view - 315 right hip 2v and ap pelvis global pls let me know if tutu and i can remove in xr 2023 024 [email or web address] [facility], [address], [address], [place], [address], 4 14:00:24 XR, shoulder, 2 or more view - 315 left shoulder 2 v recheck 2023 024 [email or web address] [facility], [address], [place], [address], 4 17:24:36 XR, knee, 4 or more view - left knee 4 v [email or web address] 2023 024 [email or web address] [facility], [address], [place], [address], 4 08:32:48 Medication Orders meloxicam 15 mg tablet 2023 025 [id number], [address] [facility], [place], [address], 5 09:25:26 Patient TargetsNo targets recorded. Patient InstructionsNo instructions recorded. Reason for Referral None Reported. Results Created Date Observation Date Name Description Value Unit Range Abnormal Flag Note LastModifiedBy Organization Detail LastModifiedTime 01/29/20 24 01/29/2024 XR, shoul cecilia, 2 or more view [email or web address]:/ [email or web address] ?Encry pted=s hAaTro YD8dLq bEUv6g %2BXZw aYqtaq 0bqfl% 2Fg9IQ a4ajBk vP9nXo QUaueC m3YtLR FvZlgJ JJ8mAn HZtai3 1x8377 AC0Kva 32HWaX eUC8mr 84%3D INTERFACE [facility] [address], [place], [address], 01/29/2024 10:36:59 01/29/20 24 01/29/2024 XR, shoul cecilia, 2 or more view [email or web address] ?Encry pted=s hAaTro YD8dLq bEUv6g %2BXZw aYqtaq 0bqfl% 2Fg9IQ a4ajBk vP9nXo QUaueC m3YtLR FvZlgJ JJ8mAn HZtai3 8q9395 AC0Kva 32HWaX eUC8mr 84%3D INTERFACE [facility] [address], [place], [address], 01/29/2024 10:37:01 05/20/20 24 05/20/2024 XR, hip + pelvi s, unila teral , 2 or 3 view [email or web address]:/ [email or web address] ?Encry pted=s hAaTro YD8dLq bEUv6g %2BXZw aYqtaq 0bqfl% 2Fg9IQ a4ajBk vP9nXo QUaueC m3YtLR FvZlgJ JJ8mAn HZtai3 5e1269 AC0Krb nqEVqL eUC8mr 84%3D INTERFACE [facility] [address], [place], [address], 05/20/2024 10:12:43 05/20/20 24 05/20/2024 XR, hip + pelvi s, unila teral , 2 or 3 view http:/ [email or web address] ?Encry pted=s hAaTro YD8dLq bEUv6g %2BXZw aYqtaq 0bqfl% 2Fg9IQ a4ajBk vP9nXo QUaueC m3YtLR FvZlgJ JJ8mAn HZtai3 2j6432 AC0Krb nqEVqL eUC8mr 84%3D INTERFACE [facility] [address], [place], [address], 05/20/2024 10:12:45 05/23/20 24 08/15/2020 imagi ng/di agnos tic resul t No observ ation record ed. [email or web address] Not Available 04/25 03:35:49 05/23/20 24 09/28/2021 imagi ng/di agnos tic resul t No observ ation record ed. [email or web address] Not Available 04/25 03:35:51 05/23/20 24 04/20/2022 imagi ng/di agnos tic resul t No observ ation record ed. [email or web address] Not Available 04/25 03:36:25 01/28/20 25 01/27/2025 XR, hip + pelvi s, unila teral , 2 or 3 view [email or web address]:/ [email or web address] ?Encry pted=s hAaTro YD8dLq bEUv6g %2BXZw aYqtaq 0bqfl% 2Fg9IQ a4ajBk vP9nXo QUaueC m3YtLR FvZlgJ JJ8mAn HZtai3 5n3996 AC0Kla nuNUaO uKiQtr MwF INTERFACE [facility] [address], [place], [address], 01/27/2025 09:13:08 01/28/20 25 01/27/2025 XR, hip + pelvi s, unila teral , 2 or 3 view [email or web address]:/ [email or web address] ?Encry pted=s hAaTro YD8dLq bEUv6g %2BXZw aYqtaq 0bqfl% 2Fg9IQ a4ajBk vP9nXo QUaueC m3YtLR FvZlgJ JJ8mAn HZtai3 1h9269 AC0Kla nuNUaO uKiQtr MwF INTERFACE [facility] [address], [place], [address], 01/27/2025 09:13:10 Result Notes Documentation Provider Name and Address Organization Details Recorded Time Xr, Shoulder, 2 Or More View : [email or web address] Encrypted=yjVkUnlFO6iRsmL Uv6g%6EGTrcQjvrh1ekut%2Fg 6PEs3cuHyxT6pBaDAhdvOy4Tf XXZhGmhXSN0uEeKQpya40x795 0OV8Sqe30BNlUoVL6xt58%3D Not Available [facility] 01/29/2024 10:3 6:59 Xr, Shoulder, 2 Or More View : [email or web address] Encrypted=zaDaGfoZS4oRepD Uv6g%9NSXvoJkxkt9kaic%2Fg 1SMj7xxPeaO2iAsAEhdlDz2Ug VWAiDgpJBN5qPbOIiag75r959 4TC0Njn12GNrCtNI5si75%3D Not Available [facility] 01/29/2024 10:3 7:01 Xr, Hip + Pelvis, Unilateral, 2 Or 3 View : [email or web address] Encrypted=hfJpHegCG5mUpwZ Uv6g%2EWNdbGtquo2achn%2Fg 6DEs1qaJmdT3tQlBUzigVh4Au JBKaXbxTSZ3bOiJPlvd61b927 7TJ9YfejdUQeRlIS5cd05%3D Not Available [facility] 05/20/2024 10:1 2:44 Xr, Hip + Pelvis, Unilateral, 2 Or 3 View : [email or web address] Encrypted=ubMzNtmEY8mGjsF Uv6g%0IYCcdSurxq1lftu%2Fg 5MDb3wsEkzS2mZdZIpqwZc0Zb IHNgPzlVZI6pPzFAabo09a517 3RO6OzlhuTQwGlNQ1as27%3D Not Available [facility] 05/20/2024 10:1 2:46 Xr, Hip + Pelvis, Unilateral, 2 Or 3 View : [email or web address] Encrypted=alJfFpkCI4hAdrL Uv6g%7NCKpiBlebr4uuwk%2Fg 6KOm8vyWbjZ8wAkWFrddHg8Ti ISWwRuqFLI9bBiRMuks76p649 1FN2TuygcBWtSkWfUndCiA Not Available [facility] 01/27/2025 09:13: 09 Xr, Hip + Pelvis, Unilateral, 2 Or 3 View : [email or web address] Encrypted=ahYpSfqHF2zXenS Uv6g%4ZSYqdZzmcc3zeur%2Fg 2BWn5avUrhF7dBbBAuxpQj9Ma GYYyQxhRPE8sIcTYrdt67a805 3RM1HymyfNTlGoZkDvbEeY Not Available [facility] 01/27/2025 09:13: 10 Problems Name Problem SNOMED Code Status Onset Date Resolution Date Notes Provider Name and Address Organization Details Recorded Time No complaint s 561182070 Active Status: 'I'; Not Available [facility] 4 09:12:17 Acquired hammer toe of left foot 720092307257 9103 Active 2015 Problem Code: M20.42; Problem Code Type: ICD-10; Status: 'A'; Not Available [facility] 4 10:55:16 Acquired left hallux valgus 894715577244 103 Active 2015 Problem Code: M20.12; Problem Code Type: ICD-10; Status: 'A'; Not Available [facility] 4 10:55:16 Closed fracture of upper end of humerus 55740837 Active 2023 Flor Fernandez MD [address] [place], [place] [address] [address], [place], [address] , [facility] 4 13:43:46 Problem Notes None recorded. Procedures Surgical History Date Name Laterality Status Provider Name and Address Organization Details Recorded Time 04/12/20 24 intramedullary nailing of femur completed KEEGAN PAYAN [facility] 09/29/2024 09:23:17 01/13/20 24 SURGICAL HARDWARE REMOVAL (SURG) completed ANDREW SPRAGUE [facility] 01/16/2024 10:45:37 10/08/19 24 open reduction of fracture of humerus with internal fixation completed KEEGAN PAYAN [facility] 09/29/2024 09:23:03 Imaging Results None recorded. Procedure Notes None recorded. Medical Equipment None Reported. Allergies Allergen ID Allergen Name Allergen Category Reaction Reaction Severity Criticality Documentation Date Start Date Code Code System Note Provider Name and Address Organization Details Recorded Time 72535 penicilli n G benzathin e medicatio n Not available Not available Not available 11/25/20232015 7982 RxNorm KEEGAN PAYAN [facility] 13:25:50 41574 gabapenti n medicatio n Not available Not available Not available 11/25/20232020 71872 RxNorm Not Available [facility] 4 11:09:46 89017 Product containin g glucocort icoid (product) medicatio n Not available Not available Not available 11/25/20232021 77102 6006 SNOMED KEEGAN PAYAN [facility] 13:25:47 95781 Medicinal product acting as adhesive (product) environme nt,medica tion Not available Not available Not available 11/25/20232021 78695 2009 SNOMED Not Available [facility] 4 11:09:46 Medications Name Sig Start Date Stop Date Status Note LastModified by Organization Details LastModified Time magnesium oxide 400 mg tabs TAKE 1 TABLET BY MOUTH TWO TIMES A DAY 12/16 completed Not Available Not Available Not Available venlafaxine ER 37.5 mg capsule,ext ended release 24 hr TAKE 1 CAPSULE BY MOUTH ONCE DAILY *PATIENT NEEDS APPOINTME NT FOR FURTHER REFILLS* active Not Available Not Available No t [...] TAKE 1 TABLET BY MOUTH ONCE WEEKLY active Not Available Not Available No t Available amlodipine 5 mg tablet TAKE 1 TABLET BY MOUTH DAILY active Not Available Not Available No t Available aspirin 81 mg tablet,sabrina yed release TAKE 1 TABLET BY MOUTH EVERY DAY [...] TABLET BY MOUTH ONCE DAILY *PATIENT NEEDS APPOINTME NT FOR FURTHER REFILLS* active Not Available Not Available No t [...] TAKE 1 CAPSULE BY MOUTH EVERY DAY 01/27 completed Not Available Not Available Not Available oxycodone-a cetaminophe n 2.5 mg-325 mg [...] 1 TABLET BY MOUTH EVERY 6 HOURS NEEDED FOR PAIN FOR 3 DAYS 01/27 completed Not Available Not Available Not Available ezetimibe 10 mg tablet TAKE 1 TABLET BY MOUTH ONCE DAILY active Not Available Not Available No t Available omeprazole magnesium 20 mg tablet,sabrina yed release TAKE 1 TABLET BY MOUTH ONCE DAILY active Not Available Not Available No t [...] TABLET BY MOUTH ONCE DAILY *PATIENT NEEDS APPOINTME NT FOR FURTHER REFILLS* active Not Available Not Available No t [...] Updated DateTime 09/29/2024 148.59 cm 18.5 kg/m2 37118.31 g KEEGAN PAYAN [facility] 09/29/2024 09:20:01 Date Recorded Body height Body mass index (BMI) Body weight Provider Name and Address Organization Details Last Updated DateTime 01/02/2024 148.59 cm 18.5 kg/m2 29776.31 g MOSES PELAEZ [facility] 01/02/2024 09:47:56 Date Recorded Body height Body mass index (BMI) Body weight Provider Name and Address Organization Details Last Updated DateTime 01/27/2025 148.59 cm 18.5 kg/m2 40702.31 g KEEGAN PAYAN [facility] 01/27/2025 08:54:10 Date Recorded Body height Body mass index (BMI) Body weight Provider Name and Address Organization Details Last Updated DateTime 01/29/2024 148.59 cm 18.5 kg/m2 84791.31 g KEEGAN PAYAN [facility] 01/29/2024 10:22:47 Date Recorded Body height Body mass index (BMI) Body weight Provider Name and Address Organization Details Last Updated DateTime 05/20/2024 148.59 cm 18.5 kg/m2 24858.31 g KEEGAN PAYAN [facility] 05/20/2024 10:02:48 Social History None recorded. Functional Status None recorded. Mental Status None recorded. Family History Nothing Reported. Medical History Condition Response Allergies/Hayfever N Coronary Artery Disease Y Anxiety/Depression Y Emphysema N Thyroid Problems Y COPD N Pacemaker N Kidney/Bladder Problems Y Anemia Y Vascular Disease Y Heart Trouble N Heart Attack (NM) N Gastrointestinal Disease N Diabetes N Autoimmune [...] SNOMED-CT Code Diagnosis ICD10 Code Diagnosis Note [id number] MD Mina Gracia [address] floor [address] [place] [address] 12/17/2023 13:13:54 12/17/2023 16:46:37 Closed fracture of proximal left humerus 5212448721 5831622 S42.202A Closed fra cture of upper end of humerus 86596741 S42.202D T84.84XA M25.512 fracture healing and position [...] rdiology risk evaluation timing of surgery elective [id number] CHASE Durham [address] [place] [address] 01/02/2024 09:23:07 01/15/2024 08:32:48 Pain of knee region 6975574851 M25.432 [id number] MD Mina Gracia 3rd floor [address] [place] [address] 01/29/2024 10:10:41 01/29/2024 13:12:54 Fracture of shoulder 8898583810 3162149 S42.90XD [id number] MD Mina Gracia 3rd floor [address] [place] [address] 05/20/2024 09:59:24 05/20/2024 10:41:48 Closed fracture of neck of femur 270402462 S72.001D [id number] MD GORDON Gracia 3rd floor [address] [place], [place] [address] 09/29/2024 09:14:03 09/29/2024 10:05:54 Closed fracture of left shoulder 4374385289 3349432 S42.92XA Closed fra cture of hip 529140287 S72.001A [id number] MD GORDON Gracia 3rd floor [address] [place] [address] 01/27/2025 08:47:09 02/05/2025 14:51:39 Closed fracture of hip 832923454 S72.001A Health Concerns Section Related Observation LastModified by Organization Detai ls LastModified Time None Recorded Concern Status LastModified by Organization Details LastModified Time None Recorded Advance Directives Directive None Recorded Payers Insurance Date Sequence Insurance Name Policy Number Policy Prieto Covered Member ID Prieto Member ID Guarantor Name 02/05/2025 1 [facility] - DOS ON OR AFTER 2022 - NURSING HOME OPTIONS AND ONE [employer] (MEDICARE REPLACEMENT/AD VANTAGE - PPO) Annalise Young [id number] Annalise Young Notes Date Note Type Note Provider Name and Address Organization Details Recorded Time 01/02/2024 text/html I am seeing the patient [...] reviewed, updated and is located in the patient s chart. Examination:Well appearing 68-year-old female in [...] in the future. Carlos Pan PA-C [address] [facility] [address] [facility], [place], [address], [facility] [place] [facility] 01/02/2024 10:31:28 OBGyn Episode No OBEpisode recorded.
--- OUTSIDE RECORDS SUMMARY | 2025-03-25 10:50 | XMS_ITS | Patient Health Record ---
Author Organization [facility] [place] Address [address] [place] [address] Care Team Providers Care Senior Chemical Process Engineer Name Role Phone Al URIAS, Aaron Primary Care Provider Cory Guardado Unavailable [phone] Reason For Referral No Information Plan Of Treatment No Information Insurance Providers Payer Name Payer Address Payer Phone Subscriber Number Group Number Insured Name Patient Relationship to Insured Coverage Start Date Coverage End Date [facility] [employer] Claims [address] [place] [id number] Annalise Young Self - patient is the insured
== END 2025-03-25 11:03 | disposition home or self-care (01) ==
LOC: HO.HSM 10:09
PROVIDERS: PCP Internal Medicine; Referring Provider Internal Medicine; Visit Provider Registered Nurse
DX: G25.81 Restless legs syndrome (principal); G47.00 Insomnia, unspecified; G62.9 Polyneuropathy, unspecified; I60.9 Nontraumatic subarachnoid hemorrhage, unspecified; R42 Dizziness and giddiness
CPT/HCPCS: 99214

== ENCOUNTER → 2025-03-25 10:08 | Outpatient (BNVA) | payer OTHER, SELFPAY | PROVIDERS: PCP Internal Medicine; Referring Provider Internal Medicine; Visit Provider Registered Nurse | DX: G25.81 Restless legs syndrome (principal); G62.9 Polyneuropathy, unspecified; G47.00 Insomnia, unspecified; I60.9 Nontraumatic subarachnoid hemorrhage, unspecified; R42 Dizziness and giddiness | CPT/HCPCS: 99212 ==

== ENCOUNTER 2025-06-23 10:44 | Outpatient (AMB) | payer OTHER, SELFPAY ==
--- NOTE | 2025-06-23 11:02 | A.OFFVIS_ITS ---
Intake Visit Reasons: 3m/ Allergies Penicillins Allergy (Unknown, Verified 06/23/25 11:15) UNKNOWN amitriptyline Allergy (Verified 06/23/25 11:15) Unknown pregabalin (From Lyrica) Allergy (Verified 06/23/25 11:15) Unknown lisinopril (LISINOPRIL) Adverse Reaction (Intermediate, Verified 06/23/25 11:15) hyperkalemia (on multiple re-starts) see 02/09/19 admission adhesive tape Adverse Reaction (Verified 06/23/25 11:15) Redness of Skin gabapentin Adverse Reaction (Verified 06/23/25 11:15) Vomiting From Thorazine Allergy (Severe, Uncoded 06/23/25 11:15) HIVES Medication List - Last Reconciled 06/23/25 by Vibha Graves, GUNNAR amlodipine 5 mg PO DAILY apixaban (Eliquis) 2.5 mg PO BID ascorbic acid (vitamin C) (Vitamin C) 250 mg PO BID buprenorphine 15 mcg/hour 1 patch transdermal FR cholecalciferol (vitamin D3) (Vitamin D3) 50 mcg PO DAILY docusate sodium 100 mg PO BID PRN ezetimibe 10 mg PO DAILY ferrous sulfate 325 mg PO BID levothyroxine 1 tab PO DAILY@0600 magnesium oxide 400 mg PO BID metoprolol tartrate 12.5 mg (1/2 x 25 mg) PO BID omeprazole 1 cap PO DAILY pramipexole 0.25 mg PO QPM 30 days venlafaxine ER 37.5 mg PO DAILY zolpidem 10 mg PO BEDTIME 30 days HPI Comments Details: She was doing okay. She apparently needed to have vascular surgery next month with Dr. Rutherford. She was feeling tired and sore all over. Joint pains in legs, hips, knees, and shoulders. Walking with walker, no recent falls. She says she n eeds R TKR. Pramipexole helped with restlessness in legs. She was also taking magnesium. Zolpidem was helping with sleep, says she is unable to sleep without it. Dizziness spells are okay. She was working on some paintings. She was living with her long-term boyfriend who was also her BUSINESS DEVELOPER and helps to manage her medications. She says she had issue with circulation to RLE after AAA stent and had revision in 02/[address] Shorty [place] [facility] Was having some dizzy spells when laying down and turning her head to the right side in early 2024, lasting 30-60 seconds. It lasts 30-60 seconds. Had stent around 11/2024 with vascular surgery and says all medications were stopped during that time. Restlessness and cramping in legs were worse without medication. She went to arthritis clinic and was told she has early OA. Fell getting out of bed in 2023, broke right femur and right wrist and needed surgery for both. Apparently was told aneurysm behind heart in the aorta has gotten larger. RLS symptoms and spasms are better with medication. Sleep is better with zolpidem. She says following her head injury years ago, she sees and hears yeyo-knacks in her kitchen talk. Restless legs, involuntary movements in legs 11/2023, and spasms in legs. Says she has aneurysm behind her heart in the aorta. Joint pain. Few falls in last year with fractures, has osteoporosis. Has trouble sleeping. Stopped zolpidem in the past because of falls. Lunesta was tried by Dr. Conklin but did not help. Says she cannot see without her glasses. Subarachnoid hemorrhage from fall on 11/06/2019, hit her head and vomited. Had kidney stones treated surgically. s/p L THR 01/2019. Has left buttock pain going down left leg. Chronic diplopia since 1981. No more dizziness. No stroke or TIA. Having some kidney problems, seeing fruit sprayer. Hypertension being treated. MRI 12/28/2015 shows minor microvascular disease. No significant old strokes to confirm her history of strokes. Ataxia and slurred speech are fine. PN pain is better. Tried gabapentin, pregabalin, amitriptyline, tramadol. Previously was on chronic narcotic therapy. Has vascular disease. Gives hx of strokes and TIAs in the past. Details not clear, going back as early as 1981. Another stroke-like episode in 2009. As a result of this she has had some double vision and some right peripheral visual field deficit. Back injection did not help. 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 Fibromyalgia Hypercholesterolemia Chronic pain disorder Peripheral neuropathy Restless leg syndrome Anemia History of cocaine abuse Former smoker Fracture of left tibial plateau Abdominal aortic aneurysm HTN (hypertension) PAD (peripheral artery disease) Surgical History (Updated 03/24/25 @ 16:32 by Keren Ortiz MA) H/O right wrist surgery S/P AAA repair S/P total left hip arthroplasty S/P femoral-femoral bypass surgery Family History (Updated 03/24/25 @ 16:33 by Keren Ortiz MA) Father Hypertension Social History Household Members: Significant Other Housing: Apartment Do you presently have visiting nurse or other home services: No Unable to assess alcohol history related to: Refusing to respond Alcohol intake: never Comment: 1:1 sitter Patient Tobacco Use Status: Former Tobacco user Advance Directives Date on File: 06/27/21 service: No Current occupational status: disabled 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 Review of Systems Const Denies chills, Denies daytime sleepiness, Reports difficulty sleeping, Denies fatigue, Denies fever(s), Denies frequent falls, Denies headache(s), Denies increased appetite, Denies poor appetite, Denies snoring, Denies weakness, Denies weight gain and Denies weight loss Eyes Denies loss of vision ENT Denies vertigo, Denies dizziness, Denies headache(s) and Denies neck pain Card Denies chest pain at rest, Denies chest pain with activity, Denies syncope, Denies leg edema, Denies palpitations, Denies dyspnea and Denies dyspnea on exertion Resp Denies cough, Denies dyspnea, Denies dyspnea on exertion and Denies snoring GI Denies abdominal pain, Denies constipation, Denies heartburn, Denies diarrhea and Denies nausea Denies urinary frequency, Denies urinary incontinence and Denies urinary urgency Musc Denies abnormal gait, Reports back pain, Reports myalgias, Reports arthralgias, Denies neck pain, Reports numbness, Denies stiffness and Reports tingling Neuro Denies abnormal gait, Denies vertigo, Denies dizziness, Denies syncope, Denies frequent falls, Denies headache(s), Denies lack of coordination, Denies loss of vision, Denies memory loss, Reports numbness, Denies Other visual disturbances, Reports restless legs, Denies seizure-like activity, Reports tingling, Denies paresthesias, Denies tremor(s) and Denies weakness Psych Denies anxiety, Denies depression, Denies memory loss, Denies visual hallucinations and Denies hallucinations Endo Denies fatigue and Denies palpitations Physical Exam Const Other: General Appearance:? normal, in no acute distress. Heart:? S1, S2 normal, no murmurs. Lungs:? clear anteriorly and posteriorly. Musculoskeletal:? normal. Extremities:? no edema. Psych:? alert, oriented, cognitive function intact, cooperative with exam. Neuro Other: Abnormal Neurological Findings:?walking with walker? Mental Status: alert and oriented X 3. Normal attention, orientation, memory, and affect. Cranial Nerves: Pupils are equal, round, and reactive to light. External ocular muscles are intact. Visual canales are full, no ptosis. Face is symmetrical, no facial weakness or droop. Facial sensations are normal. Tongue protrudes in midline. Palate elevates symmetrically. Shoulder shrugging is normal Motor Examination: Normal muscle tone, bulk and strength. No atrophy or fasciculations. No drift of the extended upper extremities. DTR 2+. Plantars are flexor. Sensory Exam: Normal light touch, temperature, pinprick, vibration, and joint- position sensations. Rhomberg sign is absent. Coordination: No ataxia. No titubation. Gait Exam: walking with walker Cerebellar Signs: [id number] is okay. Extrapyramidal System: No tremor, rigidity with normal facial expressions. No bradykinesia. No bradyphrenia. Normal arm swing and posture. No propulsion or retropulsion. Speech: Normal. Assessment & Plan Assessment & Plan (1) Restless leg syndrome: Code(s): G25.81 - Restless legs syndrome Category: Medical Plan: Continue pramipexole 0.25mg 1 tablet in the evening. (2) Insomnia: Code(s): G47.00 - Insomnia, unspecified Category: Medical Qualifiers: Insomnia type: unspecified Qualified Code(s): G47.00 - Insomnia, unspecified Plan: Continue zolpidem 10mg 1 tablet at bedtime. (3) Peripheral neuropathy: Code(s): G62.9 - Polyneuropathy, unspecified Category: Medical Qualifiers: Peripheral neuropathy type: polyneuropathy, unspecified Qualified Code(s): G62.9 - Polyneuropathy, unspecified Plan: . (4) Nontraumatic subarachnoid hemorrhage: Code(s): I60.9 - Nontraumatic subarachnoid hemorrhage, unspecified Category: Medical Plan: . (5) Dizziness: Code(s): R42 - Dizziness and giddiness Category: Medical Plan: . Plan . Coding Level of Care Code Est Pt Level 4 (44688) Diagnoses Restless leg syndrome G25.81 Insomnia, unspecified type G47.00 Insomnia type: unspecified Peripheral polyneuropathy G62.9 Peripheral neuropathy type: polyneuropathy, unspecified Nontraumatic subarachnoid hemorrhage I60.9 Dizziness R42
--- OUTSIDE RECORDS SUMMARY | 2025-06-23 12:19 | XMS_ITS | Encounter Summary ---
Author Organization [facility] Address [address] [place] [address] Care Team Providers Care Assistant Director Of Admissions Name Role Phone John Melendez MD Primary Care Provider [phone] Reason for Visit * Reason Onset Date Comments Fitting for DME 06/01/2025 Appointment 06/01/2025 Electric scooter Encounter Details Date Type Department Care Team (Late st Contact Info) Description 06/01/2025 Telephone Adult Medicine [address] [phone] John Melendez MD [address] [place] [address] Social History Tobacco Use Types Packs/Day Years [...] as of this encounter Progress Notes * Prasad Bettencourt MA - 06/09/2025 4:30 PM EDT Pt will need an in office face to face evaluation for electric wheelchair. Please schedule OV with PCP or care team. * Shanika Tejeda - 06/01/2025 3:37 PM EDT DME REQUEST Name of Product: Electric Wheelchair Specific information about product small power chair # Needed 1 Reason patient is asking for this supply? Mobility issues Have you received this supply before? If yes , when?: No Have you discussed the need for this supply with a provider at a recent visit? If yes, with who andwhen? No When completed: Tomorrow [employer] fax [phone] Who is requested? patient Is this a fax request? Have you told the patient it will take 7-10 days for completion of this request? Yes documented in this encounter Plan of Treatment Upcoming Encounters Date Type Department Care Team (Late st Contact Info) Description 11/03/2025 9:45 AM EST Office Visit Adult Medicine [address] [phone] John Melendez MD [address] [place] [address] documented as of this encounter Visit Diagnoses Not on filedocumented in this encounter Care Teams Assistant Director Of Admissions Relationship Specialty Start Date End Date John Melendez MD [address] [place] [address] PCP - General Internal Medicine 03/19/25 documented as of this encounter
--- OUTSIDE RECORDS SUMMARY | 2025-06-23 12:19 | XMS_ITS | Clinical Summary ---
Author Organization [facility] Address [address] [place] [address] Phone Care Team Providers Care Acrylic Fabricator Name Role Phone John Melendez MD Primary Care Provider [phone] Allergies Active Allergy Reactions Criticality Noted Date Comments Adhesive 08/22/2018 Severe skin irritation per pt Gabapentin 06/22/2014 Severe adverse reaction Nickel 12/20/2016 Penicillin G Potassium 01/15/2007 unknown reaction Rubber, Unspecified 03/30/2025 From airbods??? Kvvgkyl-Wip-Wxe Reductase Inhibitors 08/25/2018 trouble swallowing pills Medications cholecalcifero l (VITAMIN D-3) 25 mcg (1,000 unit) capsule Take 2,000 Int'l Units by mouth daily. 07/17/20 23 Active diclofenac (VOLTAREN) 1 % topical gel Apply 4 g topically 4 times daily. 06/27/20 23 Active oxyCODONE-acet aminophen (PERCOCET) 5-325 mg per tablet TAKE 1 TO 2 TABS EVERY 6 HOURS NEEDED FOR SEVERE PAIN (DO NOT DRIVE WHILE TAKING THIS MEDICATION 05/24/20 23 Active zolpidem (AMBIEN) 10 mg tablet TAKE 1 TABLET BY MOUTH EVERY DAY AT BEDTIME NEEDED FOR 30 DAYS 07/05/20 23 Active MAGNESIUM OXIDE ORAL Take 1 Tablet by mouth daily. 09/06/20 22 Active alendronate (FOSAMAX) 70 mg tablet TAKE 1 TABLET BY MOUTH ONCE WEEKLY 12 tablet 3 10/26/19 25 Active omeprazole OTC (PriLOSEC OTC) 20 mg EC tablet TAKE 1 TABLET BY MOUTH ONCE DAILY 90 tablet 3 10/26/19 25 Active apixaban (Eliquis) 5 mg tablet Take 1 tablet (5 mg total) by mouth 2 (two) times a day. 90 tablet 2 12/18/19 25 Active ferrous sulfate 325 mg (65 mg elemental iron) tablet TAKE 1 TABLET BY MOUTH EVERY DAY 90 tablet 1 01/12/20 25 Active amLODIPine (NORVASC) 5 mg tablet TAKE 1 TABLET BY MOUTH EVERY DAY 90 tablet 1 03/30/20 25 Active ezetimibe (ZETIA) 10 mg tablet TAKE 1 TABLET BY MOUTH EVERY DAY 90 tablet 1 03/30/20 25 Active rosuvastatin (CRESTOR) 5 mg tablet Take 1 tablet (5 mg total) by mouth 1 (one) time each day. 90 each 1 04/07/20 25 026 Active omeprazole (PriLOSEC) [address] capsule TAKE 1 CAPSULE BY MOUTH EVERY DAY 90 capsule 1 04/30/20 25 Active venlafaxine XR (EFFEXOR-XR) 37.5 mg 24 hr capsule TAKE 1 CAPSULE BY MOUTH EVERY DAY 90 capsule 1 05/27/20 25 Active cloNIDine (CATAPRES) 0.1 mg tablet TAKE 1 TABLET BY MOUTH EVERY EVENING FOR 180 DAYS. 90 tablet 1 06/02/20 25 Active levothyroxine (SYNTHROID, LEVOTHROID) 50 mcg tablet TAKE 1 TABLET BY MOUTH EVERY DAY 90 tablet 1 06/15/20 25 Active levothyroxine (SYNTHROID, LEVOTHROID) 50 mcg tablet TAKE 1 TABLET BY MOUTH ONCE DAILY *PATIENT NEEDS APPOINTMENT FOR FURTHER REFILLS* 90 tablet 2 10/26/19 25 025 Discontinued venlafaxine XR (EFFEXOR-XR) 37.5 mg 24 hr capsule TAKE 1 CAPSULE BY MOUTH ONCE DAILY *PATIENT NEEDS APPOINTMENT FOR FURTHER REFILLS* 90 capsule 2 10/26/19 25 025 Discontinued cloNIDine (CATAPRES) 0.1 mg tablet TAKE 1 TABLET BY MOUTH EVERY DAY 90 tablet 3 10/26/19 25 025 Discontinued Active Problems Problem Noted Date Diagnosed Date Prediabetes 07/18/2023 Cocaine dependence in remission ([facility]/HCC V24, [facility] S/HCC V28) 07/17/2023 Overview (09/24/2024): last use in the [...] right hip, 04/10/2019 Fracture of femoral neck, le ft, closed ([facility] V24, [facility] V28) 03/01/2019 Overview (09/24/2024): Left hip hemiarthroplasty, Dr. Malone, 02/10/2019 Atherosclerosis of both carotid arteries 018 CKD (chronic kidney disease) stage 3, GFR 30-59 ml/min ([facility] V24, [facility] V28) 07/25/2018 Scoliosis 08/03/2016 Insomnia 05/29/2016 Claudication ([facility] V24) 05/26/2015 Overview (09/24/2024): Admitted [facility] 05/12/2015, thrombectomy [...] cervix 01/15/2007 Overview (09/24/2024): had cone biopsy 1994 Abdominal aneurysm ([facility] V24) 01/15/2007 Overview (09/24/2024): repaired age 49 IMO update Lumbosacral spondylosis without myelopathy 01/15 Encounters Date Type Department Care Team Description 06/01/2025 Telephone Adult Medicine [address] [phone] John Melendez MD 04/27/2025 Telephone Adult Medicine [address] [phone] John Melendez MD 04/07/2025 1:30 PM EDT Office Visit [address] [phone] Charity Fleming NP Encounter for annual physical exam (Primary Dx); Cough, unspecified type; Hypercholesteremia 03/30/2025 11:00 AM EDT Office Visit [address] [phone] Charity Fleming, KEYSEATING MACHINE SET UP OPERATOR Primary hypertension (Primary Dx); Hypercholesteremia; Screening-pulmonary TB; Skin mole from Last 3 Months Immunizations Immunization Administration Dates Next Due Influenza Quadravalent, MDCK [...] AAA REPAIR OTHER SURGICAL HISTORY 1979 PROCEDURE: MN STRABISMUS RECESSION/RESCJ 1 HRZNTL [facility]; COMMENT: strabismus repair VENTRAL HERNIA REPAIR 2005 PROCEDURE: HISTORICAL VTRL WALL HERNIA RE BUNIONECTOMY 2001 PROCEDURE: MN CORRJ HLX VLGS BNCTY SESMDC W/DOUBLE OSTEOTOMY; [...] DX:An xiety state, unspecified Peripheral vascular disease (CMS/HCC V24) 007 DX:Peripheral vascular disease ([facility]); COMMENT: Left leg bypass 2004, revised 2005 TIA (transient ischemic attack) 07/29/2007 DX:TIA (transient ischemic attack); COMMENT: 1982, 1983 Cerebrovascular disease, unspecified 01/17/2007 DX:Cerebrovascular disease, unspecified [...] Cigarettes Q uit: 12/23/2015 Smokeless Tobacco: Never Tobacco Cessation:Counseling Given: Not Answered Alcohol Use Standard Drinks/Week Comments No 0 (1 standard drink = 0.6 oz pur e alcohol) Comments Unknown Sex and Gender Information Value Date Recorded Sex Assigned at Not on file Legal Sex Female 4:43 AM EST Gender Identity Not on file Sexual Orientation Not on file Obstetrics History Last Filed Vital Signs Vital Sign Reading Time Taken Comments Blood Pressure 132/70 04/07/2025 1:56 PM EDT Pulse 75 04/07/2025 1:20 PM EDT Temperature 35.2 C (95.3 F) 04/07/2025 1:20 PM EDT Respiratory Rate 16 04/07/2025 1:20 PM EDT Oxygen Saturation 93% 04/07/2025 1:20 PM EDT Inhaled Oxygen Concentration - - Weight 44.9 kg (99 lb) 04/07/2025 1:20 PM EDT Height 149.9 cm (4' 11 ) 04/07/2025 1:20 PM EDT Body Mass Index 20 04/07/2025 1:20 PM EDT Plan of Treatment Upcoming Encounters Date Type Department Care Team (Late st Contact Info) Description 11/03/2025 9:45 AM EST Office Visit Adult Medicine [address] [phone] John Melendez MD [address] [place] [address] Health Maintenance Due Date Last Done Comments Falls Risk Assessment 09/01/2022 Medicare Annual Wellness Visit 09/01/2022 Social Influencers of Health Screening 09/01/2022 Zoster Vaccines (2 of 2) 02/05/2024 12/11/2023 Depression Screening 09/23/2024 COVID-19 Vaccine ( season) 2025 12/11/2023, 08/21/2021, 01/02/2021 Influenza Vaccine (#1) 2025 , 07/10/2022, 06/15/2021, Additional history exists Colorectal Cancer Screening: Colonoscopy 04/07/2026 07/15/2009 Postponed from 07/15/2019 (Patient Refused) Hypertension/CHF/CAD Annual BMP Blood Test 04/07/2026 04/07/2025, 03/30/2025, 10/09/2023, Additional history exists Breast Cancer Screening 04/11/2026 Post poned from 1957 (Patient Refused) Cholesterol Screening (Lipid Panel) 03/30/2030 03/30/2025, 12/26/2023 DTaP,Tdap,and Td Vaccines (3 - Td or Tdap) 07/10/2032 07/10/2022, 07/29/2007 Osteoporosis Screening (Bone Density Screening) 12/09/2033 12/10/2023, 04/10/2019 Hepatitis C Screening Completed 11/09/2013 Pneumococcal Vaccine: 50+ Years Completed 04/30/2024, 07/03/2019, 12/27/2016 RSV Immunization Adult Patients Completed 04/30/2024 HIB Vaccines Aged Out No longer eligi [...] age to complete this topic Meningococcal B Vaccine Aged Out No l onger eligible based on patient's age to complete this topic RSV Immunization Patients Under 20 months Aged Out No longer eligible based on patient's age to complete this topic Varicella Vaccines Aged Out No longer eligible based on patient's age to complete this topic Procedures Procedure Name Priority Date/Time Associated Diagnosis Comments CBC WITH AUTO DIFFERENTIAL Routine 04/07/2025 2:18 PM EDT Encounter for annual physical exam CBC AND DIFFERENTIAL Routine 04/07/2025 2:18 PM EDT Encounter for annual physical exam COMPREHENSIVE METABOLIC PANEL Routine 04/07/2025 2:18 PM EDT Encounter for annual physical exam THYROID STIMULATING HORMONE WITH REFLEX TO FREE T4 AND FREE T3 Routine 04/07/2025 2:18 PM EDT Encounter for annual physical exam HEMOGLOBIN A1C Routine 04/07/2025 2:18 PM EDT Encounter for annual physical exam VITAMIN D 25 HYDROXY Routine 04/07/2025 2:18 PM EDT Encounter for annual physical exam INTERFERON GAMMA INTERPRETATION Routine 04/05/2025 9:13 AM EDT Screening-pulmonary TB INTERFERON GAMMA ANTIGEN 2 Routine 04/05/2025 9:13 AM EDT Screening-pulmonary TB INTERFERON GAMMA ANTIGEN 1 Routine 04/05/2025 9:13 AM EDT Screening-pulmonary TB INTERFERON GAMMA MITOGEN Routine 04/05/2025 9:13 AM EDT Screening-pulmonary TB INTERFERON GAMMA NIL Routine 04/05/2025 9:13 AM EDT Screening-pulmonary TB INTERFERON GAMMA FOR TB, QUALITATIVE Routine 04/05/2025 9:13 AM EDT Screening-pulmonary TB INTERFERON GAMMA INTERPRETATION Routine 03/30/2025 11:50 AM EDT Screening-pulmonary TB INTERFERON GAMMA ANTIGEN 2 Routine 03/30/2025 11:50 AM EDT Screening-pulmonary TB INTERFERON GAMMA ANTIGEN 1 Routine 03/30/2025 11:50 AM EDT Screening-pulmonary TB INTERFERON GAMMA MITOGEN Routine 03/30/2025 11:50 AM EDT Screening-pulmonary TB INTERFERON GAMMA NIL Routine 03/30/2025 11:50 AM EDT Screening-pulmonary TB INTERFERON GAMMA FOR TB, QUALITATIVE Routine 03/30/2025 11:50 AM EDT Screening-pulmonary TB LIPID PANEL WITH REFLEX TO DIRECT LDL Routine 03/30/2025 11:50 AM EDT Hypercholesteremia BASIC METABOLIC PANEL Routine 03/30/2025 11:50 AM EDT Primary hypertension DXA BONE DENSITY STUDY 1+ SITS AXIAL [...] Recently Relevant to Health Maintenance Results * Thyroid stimulating hormone with reflex to free t4 and free t3 (04/07/2025 2:18 PM EDT) TSH 1.41 0.40 - 4.00 mcIU/mL LAB CHEMISTRY METHOD 04/07/2025 6:00 PM EDT [facility] Blood Venous blood specimen / Unknown Venipuncture / Unknown 04/07/2025 2:18 PM EDT 04/07/2025 2:18 PM EDT us Charity Fleming KEYSEATING MACHINE SET UP OPERATOR LAB BLOOD ORDERABLES Final Re sult [facility] [address] [place] [address], * (ABNORMAL) CBC auto differential (04/07/2025 2:18 PM EDT) WBC 10.2 4.8 - 10.8 K/mcL LAB HEMETOLOGY METHOD 04/07/2025 5:00 PM EDT [facility] RBC 5.20(H) 3.80 - 4.80 M/mcL LAB HEMETOLOGY METHOD 04/07/2025 5:00 PM EDT [facility] Hemoglobin 14.8 11.5 - 16.0 g/dL LAB HEMETOLOGY METHOD 04/07/2025 5:00 PM [facility] Hematocrit 47.4(H) 35.0 - 47.0 % LAB HEMETOLOGY METHOD 04/07/2025 5:00 PM [facility] MCV 92.0 79.0 - 98.0 FL LAB HEMETOLOGY METHOD 04/07/2025 5:00 PM [facility] MCH 28.7 27.0 - 32.0 pcg LAB HEMETOLOGY METHOD 04/07/2025 5:00 PM [facility] MCHC 31.2(L) 32.0 - 37.0 g/dL LAB HEMETOLOGY METHOD 04/07/2025 5:00 PM [facility] RDW 14.3 11.0 - 15.0 % LAB HEMETOLOGY METHOD 04/07/2025 5:00 PM [facility] Platelets 319 130 - 400 K/mcL LAB HEMETOLOGY METHOD 04/07/2025 5:00 PM [facility] MPV 12.7(H) 7.0 - 11.0 FL LAB HEMETOLOGY METHOD 04/07/2025 5:00 PM [facility] NRBC 0.0 <1.0 % LAB HEMETOLOGY METHOD 04/07/2025 5:00 PM [facility] NRBC Absolute 0.00 <0.10 K/mcL LAB HEMETOLOGY METHOD 04/07/2025 5:00 PM [facility] Neutrophils Relative 63.0 % LAB HEMETOLOGY METHOD 04/07/2025 5:00 PM [facility] Lymphocytes Relative 26.4 % LAB HEMETOLOGY METHOD 04/07/2025 5:00 PM [facility] Monocytes Relative 8.2 % LAB HEMETOLOGY METHOD 04/07/2025 5:00 PM EDT [facility] Eosinophils Relative 1.2 % LAB HEMETOLOGY METHOD 04/07/2025 5:00 PM EDT [facility] Basophils Relative 0.9 % [facility] Immature Granulocytes Relative 0.3 % LAB HEMETOLOGY METHOD 04/07/2025 5:00 PM EDT [facility] Neutrophils Absolute 6.42 1.50 - 7.00 K/mcL LAB HEMETOLOGY METHOD 04/07/2025 5:00 PM EDT [facility] Lymphocytes Absolute 2.68 1.00 - 5.00 K/mcL LAB [facility]EMETOLOGY [facility]07[facility] Monocytes Absolute 0.83 0.20 - 1.00 K/mcL LAB HEMETOLOGY METHOD 04/07/2025 5:00 PM EDT [facility] Eosinophils Absolute 0.12 0.00 - 0.50 K/mcL LAB HEMETOLOGY METHOD 04/07/2025 5:00 PM EDT [facility] Basophils Absolute 0.09 0.00 - 0.20 K/mcL LAB HEMETOLOGY METHOD 04/07[facility]2025 [facility] Immature Granulocytes Absolute 0.03 0.00 - 0.03 K/mcL LAB HEMETOLOGY METHOD 04/07/2025 5:00 PM T [facility] Blood Venous blood specimen / Unknown Venipuncture / Unknown 04/07/2025 2:18 PM EDT 04/07/2025 2:18 PM EDT us Charity Fleming KEYSEATING MACHINE SET UP OPERATOR LAB BLOOD ORDERABLES Final Re sult [facility] [address] [place] [address], * Vitamin D 25 hydroxy (04/07/2025 2:18 PM EDT) Pathologist [facility] [place] Vit D, 25-Hydroxy 30.2 30.0 - 80.0 ng/mL LAB CHEMISTRY METHOD 04/07/2025 6:00 PM EDT [facility] Blood Venous blood specimen / Unknown Venipuncture / Unknown 04/07/2025 2:18 PM EDT 04/07/2025 2:18 PM EDT us Charity Fleming KEYSEATING MACHINE SET UP OPERATOR LAB BLOOD ORDERABLES Final Re sult [facility] [address] [place] [address], [place] [phone] * Hemoglobin A1c (04/07/2025 2:18 PM EDT) [facility] Hemoglobin A1C 6.1 <6.5 % LAB CHEMISTRY METHOD 04/07/2025 8:13 PM EDT [facility] Mean Bld Glu Estim. 128 mg/dL LAB CHEMISTRY METHOD 04/07/2025 8:13 PM EDT [facility] Blood Venous blood specimen / Unknown Venipuncture / Unknown 04/07/2025 2:18 PM EDT 04/07/2025 2:18 PM EDT us Charity Fleming KEYSEATING MACHINE SET UP OPERATOR LAB BLOOD ORDERABLES Final Re sult [facility] [address] [place] [address], [place] [phone] * (ABNORMAL) Comprehensive metabolic panel (04/07/2025 2:18 PM EDT) [facility] Sodium 139 133 - 145 mmol/L LAB CHEMISTRY METHOD 04/07/2025 5:23 PM EDT [facility] Potassium 4.6 3.5 - 5.5 mmol/L LAB CHEMISTRY METHOD 04/07/2025 5:23 PM [facility] Chloride 105 96 - 110 mmol/L LAB CHEMISTRY METHOD 04/07/2025 5:23 PM [facility] CO2 26 21 - 32 mmol/L LAB CHEMISTRY METHOD 04/07/2025 5:23 PM [facility] Anion Gap 8 3 - 11 LAB CHEMISTRY METHOD 04/07/2025 5:23 PM [facility] Glucose 87 70 - 100 mg/dL LAB CHEMISTRY METHOD 04/07/2025 5:23 PM [facility] BUN 22 5 - 25 mg/dL LAB CHEMISTRY METHOD 04/07/2025 5:23 PM [facility] Creatinine 1.09 0.50 - 1.10 mg/dL LAB CHEMISTRY METHOD 04/07/2025 5:23 PM [facility] eGFR 56(L) >=60 mL/min/1. 73m2 LAB CHEMISTRY METHOD 04/07/2025 5:23 PM [facility] Comment:Calculation based on the Chronic Kidney Disease Epidemiology Collaboration (CKD-EPI) equation refit without adjustment for race. BUN/Creatinine Ratio 20.2 LAB CHEMISTRY METHOD 04/07/2025 5:23 PM [facility] Calcium 9.6 8.5 - 10.5 mg/dL LAB CHEMISTRY METHOD 04/07/2025 5:23 PM [facility] AST (SGOT) 24 10 - 42 unit/L LAB CHEMISTRY METHOD 04/07/2025 5:23 PM [facility] ALT (SGPT) 16 10 - 60 unit/L LAB CHEMISTRY METHOD 04/07/2025 5:23 PM [facility] Alkaline Phosphatase 132(H) 42 - 121 unit/L LAB CHEMISTRY METHOD 04/07/2025 5:23 PM [facility] Total Protein 7.0 6.0 - 8.0 g/dL LAB CHEMISTRY METHOD 04/07/2025 5:23 PM EDT [facility] Albumin 3.8 3.2 - 5.0 g/dL LAB CHEMISTRY METHOD 04/07/2025 5:23 PM EDT [facility] Total Bilirubin 0.3 0.0 - 1.4 mg/dL LAB CHEMISTRY METHOD 04/07/2025 5:23 PM EDT [facility] Blood Venous blood specimen / Unknown Venipuncture / Unknown 04/07/2025 2:18 PM EDT 04/07/2025 2:18 PM EDT us Charity Fleming KEYSEATING MACHINE SET UP OPERATOR LAB BLOOD ORDERABLES Final Re sult Performing Organization Address [facility]/ZIP Co de Phone Number [facility] [address] [place] [address], [place] [phone] * Interferon gamma interpretation (04/05/2025 9:13 AM EDT) Only the most recent of2 resultswithin the time period is included. [facility] Quantiferon Plus Interpretation Negative Negative LAB CHEMISTRY METHOD 04/06/2025 11:09 AM EDT [facility] Blood Venous blood specimen / Unknown Venipuncture / Unknown 04/05/2025 9:13 AM EDT 04/05/2025 9:14 AM EDT us Charity Fleming NP LAB BLOOD ORDERABLES Final Re sult Performing Organization Address City/[facility]/ZIP Co de Phone Number [facility] [address] [place] [address], [place] [phone] * Interferon gamma antigen 2 (04/05/2025 9:13 AM EDT) Only the most recent of2 resultswithin the time period is included. Blood Venous blood specimen / Unknown Venipuncture / Unknown 04/05/2025 9:13 AM EDT 04/05/2025 9:14 AM EDT us Charity Arthur Lonnie KEYSEATING MACHINE SET UP OPERATOR LAB BLOOD ORDERABLES Final Re sult Performing Organization Address [facility]/ZIP Co de Phone Number [facility] [address] [place] [address], [place] [phone] * Interferon gamma antigen 1 (04/05/2025 9:13 AM EDT) Only the most recent of2 resultswithin the time period is included. Blood Venous blood specimen / Unknown Venipuncture / Unknown 04/05/2025 9:13 AM EDT 04/05/2025 9:14 AM EDT us Charity Arthur Lonnie KEYSEATING MACHINE SET UP OPERATOR LAB BLOOD ORDERABLES Final Re sult Performing Organization Address [facility] Co de Phone Number [facility] [address] [place] [address], [place] [phone] * Interferon gamma mitogen (04/05/2025 9:13 AM EDT) Only the most recent of2 resultswithin the time period is included. Blood Venous blood specimen / Unknown Venipuncture / Unknown 04/05/2025 9:13 AM EDT 04/05/2025 9:14 AM EDT us Charity Fleming KEYSEATING MACHINE SET UP OPERATOR LAB BLOOD ORDERABLES Final Re sult Performing Organization Address [facility] Co de Phone Number [facility] [address] [place] [address], [place] [phone] * Interferon gamma NIL (04/05/2025 9:13 AM EDT) Only the most recent of2 resultswithin the time period is included. Blood Venous blood specimen / Unknown Venipuncture / Unknown 04/05/2025 9:13 AM EDT 04/05/2025 9:14 AM EDT us Charity Arthur Lonnie KEYSEATING MACHINE SET UP OPERATOR LAB BLOOD ORDERABLES Final Re sult Performing Organization Address City/[facility]/ZIP Co de Phone Number [facility] [address] [place] [address], [place] [phone] * (ABNORMAL) Lipid panel with reflex to direct LDL (03/30/2025 11:50 AM EDT) Cholesterol 228(H) 0 - 200 mg/dL LAB CHEMISTRY METHOD 03/30/2025 4:53 PM EDT [facility] Triglycerides 138 0 - 150 mg/dL LAB CHEMISTRY METHOD 03/30/2025 4:53 PM EDT [facility] HDL 57 >=40 mg/dL LAB CHEMISTRY METHOD 03/30/2025 4:53 PM EDT [facility] LDL Calculated 143(H) 0 - 100 mg/dL LAB CHEMISTRY METHOD 03/30/2025 4:53 PM EDT [facility] VLDL Cholesterol Neftali 27.6 mg/dL LAB CHEMISTRY METHOD 03/30/2025 4:53 PM EDT [facility] Non HDL Chol. (LDL+VLDL) 171(H) <145 mg/dL LAB CHEMISTRY METHOD 03/30/2025 4:53 PM EDT [facility] Chol/HDL Ratio 4.0 0.0 - 4.4 LAB CHEMISTRY METHOD 03/30/2025 4:53 PM T [facility] Blood Venous blood specimen / Unknown Venipuncture / Unknown 03/30/2025 11:50 AM EDT 03/30/2025 11:50 AM EDT us Charity Fleming KEYSEATING MACHINE SET UP OPERATOR LAB BLOOD ORDERABLES Final Re sult [facility] [address] [place] [address], [place] [phone] * (ABNORMAL) Basic metabolic panel (03/30/2025 11:50 AM EDT) Sodium 140 133 - 145 mmol/L LAB CHEMISTRY METHOD 03/30/2025 4:48 PM EDT [facility] Potassium 5.5 3.5 - 5.5 mmol/L LAB CHEMISTRY METHOD 03/30/2025 4:48 PM [facility] Chloride 107 96 - 110 mmol/L LAB CHEMISTRY METHOD 03/30/2025 4:48 PM [facility] CO2 25 21 - 32 mmol/L LAB CHEMISTRY METHOD 03/30/2025 4:48 PM [facility] Anion Gap 8 3 - 11 LAB CHEMISTRY METHOD 03/30/2025 4:48 PM [facility] Glucose 88 70 - 100 mg/dL LAB CHEMISTRY METHOD 03/30/2025 4:48 PM [facility] BUN 17 5 - 25 mg/dL LAB CHEMISTRY METHOD 03/30/2025 4:48 PM [facility] Creatinine 1.26(H) 0.50 - 1.10 mg/dL LAB CHEMISTRY METHOD 03/30/2025 4:48 PM [facility] eGFR 47(L) >=60 mL/min/1. 73m2 LAB CHEMISTRY METHOD 03/30/2025 4:48 PM [facility] Comment:Calculation based on the Chronic Kidney Disease Epidemiology Collaboration (CKD-EPI) equation refit without adjustment for race. BUN/Creatinine Ratio 13.5 LAB CHEMISTRY METHOD 03/30/2025 4:48 PM [facility] Calcium 10.1 8.5 - 10.5 mg/dL LAB CHEMISTRY METHOD 03/30/2025 4:48 PM [facility] Blood Venous blood specimen / Unknown Venipuncture / Unknown 03/30/2025 11:50 AM EDT 03/30/2025 11:50 AM EDT us Charity Fleming KEYSEATING MACHINE SET UP OPERATOR LAB BLOOD ORDERABLES Final Re sult [facility] [address] [place] [address], [place] [phone] * DXA BONE DENSITY STUDY 1+ NILTON GALVAN SKMICKIE (12/10/2023 9:31 AM EDT) Anatomical Region Laterality Modality Bone Densitometr y 10/12/2022 1:55 PM EST Narrative 12/10/2023 6:16 PM EDT Clinical history: menopausal/postmenopausal disorder Scans of the lumbar spine and hips were performed on a [employer]RA[employer] fan beam bone densitometer. Bone mineral density measurements [...] >20% for major osteoporotic fracture PLEASE NOTE: W.H.O. classification is based on lowest measured density at the spine, femoral neck, or total hip.This classification has prognostic significance when applied to post menopausal women and older men. 1) The World Health Organization defines low BMD as follows: T-score Normal at or > -1 Osteopenia < -1 and > -2.5 Osteoporosis at or < -2.5 without fractures Established osteoporosis < -2.5 with fractures Procedure Note Susie Ratliff MD - 05/11/2024 Clinical history: menopausal/postmenopausal disorder Scans of the lumbar spine and hips were performed on a [employer] beam bone densitometer. Bone mineral density measurements [...] Final Result * Hepatitis C Screening (11/09/2013) [facility] Hepatitis C Screening abstracted Historical Provider HEALTH MAINTENANCE Final Result * Colonoscopy (07/15/2009) [facility] Colonoscopy abstracted, no interpretation Anatomical Region Laterality Modality Other [facility] Tristen URIAS HEALTH MAINTENANCE Final Result from Last 3 Months or Most Recently Relevant to Health Maintenance Insurance [employer] Member Subscriber Plan / Payer (Ef fective 2019-Present) Name:ANNALISE YUONG Relation to Subscriber:Self Name:Annalise Young Payer ID:[id number] Group ID:[id number] Type:Not on file Address: [place] [address] [place] [phone] Care Teams Acrylic Fabricator Relationship Specialty Start Date End Date John Melendez MD [address] [place] [phone] PCP - General Internal Medicine 03/19/25
--- OUTSIDE RECORDS SUMMARY | 2025-06-23 12:19 | XMS_ITS | Clinical Summary ---
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 Not on pepe e 01/17/2023 Are you concerned about learning? Not on file 01/17/2023 No 01/17/2023 No 01/17/2023 Digital Access Answer Date Recorded No 02/18/2023 No 02/18/2023 No 02/18/2023 Reliable internet access at home? Not on file 02/18/2023 Device with a working camera? Not on file Comments Unknown Sex and Gender Information Value Date Recorded Sex Assigned at Not on file Legal Sex Female 7:16 PM EST Gender Identity Not on file Sexual Orientation Not on file Plan of Treatment Health Maintenance Due Date Last Done Comments LIPID PANEL 1957 DEPRESSION SCREENING 1969 SMOKING Hx and SMOKELESS TOBACCO SCREENING 1970 HEPATITIS C SCREENING 1975 MAMMOGRAM 1997 COLOGUARD 2002 COLONOSCOPY 2002 COLORECTAL CANCER SCREENING 2002 FIT TEST 2002 FOBT 2002 SIGMOIDOSCOPY 2002 VIRTUAL COLONOSCOPY 2002 ZOSTER VACCINES (1 of 2) 2007 Adult Td,Tdap Booster 07/29/2017 07/29/2007 PNEUMOCOCCAL VACCINES (50+ years) (2 of 2 - PCV) 07/03/2020 07/03/2019 OSTEOPOROSIS SCREENING INITIAL (ONE-TIME) 2022 INFLUENZA VACCINE (#1) 2025 2, 07/10/2022, 06/15/2021, Additional history exists COVID-19 VACCINE (2024- season) 2025 08/21/2021, 08/21/2021, 01/02/2021 RSV VACCINE (1 - 1-dose 75+ series) 2032 HEPATITIS A VACCINES Aged Out No long er eligible based on patient's age to complete this topic HIB VACCINES Aged Out No longer eligi ble based on patient's age to complete this topic MENINGOCOCCAL VACCINES (ACWY) Aged Out No longer eligible based on patient's age to complete this topic MENINGOCOCCAL VACCINES (B) Aged Out N o longer eligible based on patient's age to complete this topic Medical Devices Not on file Insurance [facility] MEDICARE REPLACEMENT [place] [place] [id number] [facility] MEDICARE [facility]PLACEMENT [facility] MEDICARE [facility]PLACEMENT [facility] MEDICARE [facility]PLACEMENT [facility] MEDICARE REPLACEMENT [facility] [employer] MEDICARE REPLACEMENT [place]ULES [id number] Care Teams Dairy Clerk Relationship Specialty Start Date End Date Jonh Melendez MD [address] [place] [phone] PCP - General Internal Medicine 09/06/22 Additional Source Comments The information contained in this document represents components of the legal health record. It is not the complete legal health record.[facility]
== END 2025-06-23 11:41 | disposition home or self-care (01) ==
LOC: HO.HSM 10:45
PROVIDERS: PCP Internal Medicine; Visit Provider Registered Nurse
DX: G25.81 Restless legs syndrome (principal); G47.00 Insomnia, unspecified; G62.9 Polyneuropathy, unspecified; I60.9 Nontraumatic subarachnoid hemorrhage, unspecified; R42 Dizziness and giddiness
CPT/HCPCS: 99214

== ENCOUNTER → 2025-06-23 10:44 | Outpatient (BNVA) | payer OTHER, SELFPAY | PROVIDERS: PCP Internal Medicine; Visit Provider Registered Nurse | DX: G25.81 Restless legs syndrome (principal); G47.00 Insomnia, unspecified; G62.9 Polyneuropathy, unspecified; R42 Dizziness and giddiness; I60.9 Nontraumatic subarachnoid hemorrhage, unspecified | CPT/HCPCS: 99212 ==